=== PATIENT | female | born 1945 | race Caucasian/White ===

== ENCOUNTER → 2017-09-28 09:24 | Outpatient (CLI) | payer MEDICARE, OTHER, SELFPAY ==
[2017-09-28 11:28] LABS: Hemoglobin A1C% w Est Avg Glu 7.4 % (4.0-6.0)
[2017-09-28 11:31] LABS: Blood Urea Nitrogen 27 mg/dL (7-17); Calcium 9.8 mg/dL (8.4-10.2); Carbon Dioxide 25 mmol/L (22-32); Chloride 105 mmol/L (98-107); Cholesterol 150 mg/dL (140-199); Glucose 167 mg/dL (80-110); HDL Cholesterol 50 mg/dL (40-60); HEMOLYSIS 16 (0-50); LDL Cholesterol Calculated 60 mg/dL (<100); Potassium 4.7 mmol/L (3.4-5.1); Sodium 144 mmol/L (137-145); Triglycerides 201 mg/dL (35-150)
[2017-09-28 12:51] LABS: Thyroid Stimulating Hormone 1.76 uIU/mL (0.47-4.68)
== END ==
PROVIDERS: Family Provider Internal Medicine; PCP Internal Medicine; Visit Provider Internal Medicine
DX: E03.9 Hypothyroidism, unspecified (principal); E11.9 Type 2 diabetes mellitus without complications; E78.00 Pure hypercholesterolemia, unspecified; I10 Essential (primary) hypertension
CPT/HCPCS: 36415; 80048; 80061; 83036; 84443

== ENCOUNTER → 2017-10-23 09:05 | Outpatient (CLI) | payer MEDICARE, OTHER, SELFPAY ==
[2017-10-23 09:22] LABS: Add Manual Diff / Slide Review NO; Basophils Percent Auto 0.7 % (0-2); Eosinophils Percent Auto 2.9 % (2-4); Hematocrit 38.1 % (36-46); Hemoglobin 12.9 g/dL (12.0-16.0); Lymphocytes Percent Auto 27.8 % (25-40); Mean Corpuscular HGB Conc 33.8 % (30-36); Mean Corpuscular Hemoglobin 30.1 PG (26-34); Mean Corpuscular Volume 89.2 fL (80-100); Monocytes Percent Auto 6.1 % (3-14); Neutrophils Absolute Auto 3000 /uL (3000-5900); Neutrophils Percent Auto 62.5 % (50-75); Platelet Count 174 X10^3/uL (150-400); Red Blood Cell Count 4.27 X10^6/uL (4.0-5.2); Red Cell Distribution Width 13.2 % (11.6-14.8); White Blood Cell Count 4.8 X10^3/uL (4.5-11.0)
[2017-10-23 09:54] LABS: Alanine Aminotransferase 27 IU/L (9-52); Albumin 4.1 g/dL (3.5-5.0); Albumin Globulin Ratio 1.4 (1.0-2.8); Alkaline Phosphatase 54 U/L (38-126); Aspartate Aminotransferase 26 IU/L (14-36); BUN Creatinine Ratio 20.9 (6-22); Bilirubin Total 0.5 mg/dL (0.2-1.3); Blood Urea Nitrogen 23 mg/dL (7-17); Calcium 9.7 mg/dL (8.4-10.2); Carbon Dioxide 25 mmol/L (22-32); Chloride 106 mmol/L (98-107); Estimated Glomerular Filt Rate 49.2 mL/min (>60); Glucose 215 mg/dL (80-110); HEMOLYSIS < 15 (0-50); Potassium 4.6 mmol/L (3.4-5.1); Sodium 142 mmol/L (137-145); Total Protein 7.1 g/dL (6.3-8.2)
[2017-10-23 10:12] LABS: Carcinoembryonic Antigen 4.2 ng/mL (0.1-3.0)
== END ==
PROVIDERS: Family Provider Internal Medicine; PCP Internal Medicine; Visit Provider Nurse Practitioner Gerontology
DX: C18.9 Malignant neoplasm of colon, unspecified (principal)
CPT/HCPCS: 36415; 80053; 82378; 85025

== ENCOUNTER → 2018-02-19 11:46 | Outpatient (CLI) | payer MEDICARE, OTHER, SELFPAY ==
--- NOTE | 2018-02-19 | DI.MG.S_ITS ---
BILATERAL DIGITAL SCREENING MAMMOGRAM 3D/2D WITH CAD: 02/19/2018 CLINICAL: Routine screening. Comparison is made to exams dated: 11/18/2016 specimen - [facility], 11/13/2016 mammogram, and 11/06/2016 mammogram - [facility]. There are scattered fibroglandular elements in both breasts. Current study was also evaluated with a Computer Aided Detection (CAD) system. There are benign calcifications in both breasts. No significant masses, calcifications, or other findings are seen in either breast. There has been no significant interval change. IMPRESSION: There is no mammographic evidence of malignancy. A 1 year screening mammogram is recommended. This exam was interpreted at Station ID: [id number]. NOTE: For mammograms, a report in lay terms will be sent to the patient. Approximately 15% of breast malignancies will not be visualized mammographically. In the management of a palpable breast mass, a negative mammogram must not discourage biopsy of a clinically suspicious lesion. Electronically Signed By: Mehdi montelongo/dian:02/19/2018 16:21:55 copy to: Jourdan Ortiz letter sent: Normal Exam ACR BI-RADS Category 2: Benign Finding(s) 3342F
== END ==
PROVIDERS: PCP Internal Medicine; Visit Provider Internal Medicine
DX: Z12.31 Encounter for screening mammogram for malignant neoplasm of breast (principal)
CPT/HCPCS: 77063; 77067

== ENCOUNTER → 2018-04-26 14:56 | Outpatient (CLI) | payer MEDICARE, OTHER, SELFPAY ==
[2018-04-26 15:46] LABS: Alanine Aminotransferase 31 IU/L (9-52); Albumin 4.2 g/dL (3.5-5.0); Albumin Globulin Ratio 1.5 (1.0-2.8); Alkaline Phosphatase 54 U/L (38-126); Aspartate Aminotransferase 28 IU/L (14-36); Bilirubin Total 0.2 mg/dL (0.2-1.3); Blood Urea Nitrogen 23 mg/dL (7-17); Calcium 9.9 mg/dL (8.4-10.2); Carbon Dioxide 23 mmol/L (22-32); Chloride 103 mmol/L (98-107); Estimated Glomerular Filt Rate 54.8 mL/min (>60); Globulin 2.8 g/dL (1.7-4.1); Glucose 318 mg/dL (80-110); HEMOLYSIS < 15 (0-50); Potassium 4.5 mmol/L (3.4-5.1); Sodium 139 mmol/L (137-145)
[2018-04-26 15:48] LABS: Add Manual Diff / Slide Review NO; Basophils Percent Auto 0.4 % (0-2); Eosinophils Percent Auto 1.5 % (2-4); Hematocrit 36.9 % (36-46); Hemoglobin 12.1 g/dL (12.0-16.0); Lymphocytes Percent Auto 27.3 % (25-40); Mean Corpuscular HGB Conc 32.9 % (30-36); Mean Corpuscular Hemoglobin 29.9 PG (26-34); Mean Corpuscular Volume 90.8 fL (80-100); Monocytes Percent Auto 5.6 % (3-14); Neutrophils Absolute Auto 4000 /uL (1500-7000); Neutrophils Percent Auto 65.2 % (50-75); Platelet Count 223 X10^3/uL (150-400); Red Blood Cell Count 4.06 X10^6/uL (4.0-5.2); Red Cell Distribution Width 13.4 % (11.6-14.8); White Blood Cell Count 6.2 X10^3/uL (4.5-11.0)
[2018-04-26 16:17] LABS: Carcinoembryonic Antigen 7.4 ng/mL (0.1-3.0)
== END ==
PROVIDERS: Nurse Practitioner Gerontology; Family Provider Internal Medicine; PCP Internal Medicine
DX: C18.9 Malignant neoplasm of colon, unspecified (principal)
CPT/HCPCS: 36415; 80053; 82378; 85025

== ENCOUNTER → 2018-05-03 09:28 | Outpatient (CLI) | payer MEDICARE, OTHER, SELFPAY ==
--- NOTE | 2018-05-03 10:19 | DI.CT.S_ITS ---
PROCEDURE: CT CHEST ABD PEL W CON INDICATIONS: surveillance TECHNIQUE: After the administration of oral and intravenous contrast, 5 mm thick sections acquired from the lung apices to the symphysis. 5 mm coronal and sagittal reformats were performed, with additional 7 mm coronal MIP reformats through the lungs. For radiation dose reduction, the following was used: automated exposure control, adjustment of mA and/or kV according to patient size. COMPARISON: [facility], CT, CHEST ABDOMEN PELVIS WITH CONTRAST, 11/16/2007, 10:03. [facility], CT, CHEST ABDOMEN PELVIS WITH CONTRAST, 12/10/2005, 9:48. [facility], CT, CHEST ABDOMEN PELVIS WITH CONTRAST, 08/06/2009, 13:11. FINDINGS: Image quality: Excellent. CHEST: Lungs and pleura: No acute airspace opacities. No pleural effusions or pneumothorax. Central and peripheral airways appear patent and normal in caliber. Mediastinum: Heart size is normal. No pericardial effusion. No mediastinal or hilar adenopathy by size criteria. Thoracic aorta and central pulmonary arteries are normal in size. Esophagus is normal in caliber. There is a small hiatal hernia. Chest wall: No axillary or supraclavicular adenopathy by size criteria. Thyroid gland is not well-seen. ABDOMEN: Solid organs: Liver is normal in size and enhancement. Diffuse fatty liver infiltration is noted. Gallbladder has been removed. Biliary system is non dilated. Pancreas enhances normally. Spleen is normal in size and enhancement. No adrenal nodules. This patient is status post left nephrectomy. No abnormal soft tissue can be seen within the left nephrectomy bed. The right kidney is unremarkable, with simple appearing cysts seen. No right-sided hydronephrosis. Peritoneum and bowel: This patient is status post partial colectomy. There is a right lower quadrant ostomy seen. No dilated loops of small bowel are seen. No findings of bowel obstruction are seen. No free air or significant free fluid can be seen. Nodes and vessels: No retroperitoneal or mesenteric adenopathy by size criteria. Aorta and inferior vena cava are normal in size. Miscellaneous: No ventral hernias. PELVIS: Genitourinary: Bladder wall thickness is normal. Miscellaneous: No inguinal hernias or adenopathy. Bones: Mild dextroconvex scoliotic curvature is seen. No suspicious bony lesions. No vertebral body compression fractures. Age-appropriate bony degenerative changes are seen. IMPRESSION: Partial colectomy with right lower quadrant ostomy. No nathanael masses or findings of metastatic disease are seen. Left nephrectomy, without findings of local recurrence. Incidental note is made of: Small hiatal hernia Fatty liver Cholecystectomy Right renal cysts Dextroconvex scoliotic curvature Dictated by: Barrera Bay M.D. on 05/03/2018 at 10:44 Approved by: Barrera Bay M.D. on 05/03/2018 at 10:55
== END ==
PROVIDERS: Family Provider Internal Medicine; PCP Internal Medicine
DX: C20 Malignant neoplasm of rectum (principal); N28.1 Cyst of kidney, acquired; K76.0 Fatty (change of) liver, not elsewhere classified; K44.9 Diaphragmatic hernia without obstruction or gangrene; M41.9 Scoliosis, unspecified; Z90.5 Acquired absence of kidney; Z90.49 Acquired absence of other specified parts of digestive tract
CPT/HCPCS: 71260; 74177; 82378; Q9967

== ENCOUNTER 2018-07-30 12:20 | Emergency (ER) | payer MEDICARE, OTHER, SELFPAY ==
[2018-07-30 12:24] VITALS: BP 153/90; PULSE 74; RESP 14; TEMP 36.6; O2SAT 98
--- NOTE | 2018-07-30 12:29 | ED.EXTPRO ---
HPI - Extremity Problem <Christy Santos PA-C - Last Filed: 07/30/18 15:30> General Chief complaint: Extremity Problem,Nontraumatic Stated complaint: states Deon Facitis Time Seen by Provider: 07/30/18 12:26 Source: patient Mode of arrival: ambulatory Limitations: no limitations History of Present Illness HPI Narrative: This 72-year-old female comes in due to worsening left foot and ankle pain. She states that pain started about 3 weeks ago, seems most focused in her Achilles and heel area. She states that she fell off a retaining wall a couple of feet onto cement taking the brunt of the impact with her left knee, than her right. She states she has arthritis in both knees and they were really sore, but are getting better. She had some foot pain prior to that, but has continued to get worse. She states that she saw her PCP who told her this was secondary to plantar fasciitis. She did get a boot for this but has only been able to tolerate wearing it for a couple hours a day. Last night she finally took a leftover oxycodone that she had from dental work a couple of years ago and was able to sleep with the boot on all night, but did not help. She states pain has gotten progressively worse but especially for the last 4 days and she has had some swelling in her foot. Pain has radiated up the calf into the gluteal area at times for the last 2 days. She states she does not have pain nonweightbearing, ice is helping. Pain in is worse after walking for long periods or when 1st getting up. She has not noted swelling in her calf. She denies any chest pain or dyspnea or other new symptoms. She does have a history of clots. Related Data Home Medications Medication Instructions Recorded Confirmed sertraline 50 mg PO QPM #0 10/13/12 07/30/18 simvastatin 40 mg PO BEDTIME #0 10/13/12 07/30/18 aspirin 81 mg PO DAILY 04/28/18 07/30/18 losartan 50 mg PO DAILY 04/28/18 07/30/18 acetaminophen 500 mg tablet 500 mg PO TID 05/20/18 07/30/18 gabapentin 100 mg PO TID 07/30/18 07/30/18 insulin degludec [Tresiba 10 units SUBCUT QPM 07/30/18 07/30/18 FlexTouch U-100] levothyroxine 112 mcg PO DAILY 07/30/18 07/30/18 metformin 1,000 mg PO BID 07/30/18 07/30/18 Allergies Allergy/AdvReac Type Severity Reaction Status Date / Time diphenhydramine AdvReac Intermediate Agitated Verified 07/30/18 13:08 Review of Systems <Christy Santos PA-C - Last Filed: 07/30/18 15:30> Review of Systems ROS Unobtainable: All systems reviewed & are unremarkable except as noted in HPI and below PFSH <Christy Santos PA-C - Last Filed: 07/30/18 15:30> Medical History (Updated 07/30/18 @ 14:54 by Christy Santos PA-C) HTN (hypertension) (Chronic) Hypothyroidism (Chronic) Insulin dependent diabetes mellitus (Chronic) Single kidney (Chronic) Colon cancer (Resolved) History of blood clots (Resolved) Surgical History (Updated 07/30/18 @ 13:02 by Christy Santos PA-C) S/P colon resection (Resolved) Social History Smoking Status: Current every day smoker Social History Smoking Status: Current every day smoker Exam <Christy Santos PA-C - Last Filed: 07/30/18 15:30> Narrative Exam Narrative: GENERAL APPEARANCE: Patient sitting comfortably, in no distress. NECK/THYROID: Neck supple, no JVD. LUNGS: Clear to auscultation bilaterally. HEART: Regular rate and rhythm without murmur, normal S1, S2, no S3 or S4. EXTREMITIES: No cyanosis, mild left pedal edema, minimal calf and Achilles tenderness on the left, none on the right NEUROLOGIC: Alert and oriented, normal speech, and coordination. MUSCULOSKELETAL: Left foot mild midfoot effusion. Tender over the left 3rd mid metatarsal the, no point tenderness elsewhere including the Achilles, heel, or aponeurosis of the heel. Achilles is intact by palpation. no point tenderness over the ankle. She has full active/passive range of motion nonweightbearing without tenderness, no obvious laxity. No tenderness over the left knee joint, full range of motion. Initial Vital Signs Initial Vital Signs: Vital Signs Temperature 97.9 F 07/30/18 12:24 Pulse Rate 74 07/30/18 12:24 Respiratory Rate 14 07/30/18 12:24 Blood Pressure 153/90 H 07/30/18 12:24 Pulse Oximetry 98 07/30/18 12:24 <Norbert Barber DO - Last Filed: 07/30/18 16:20> Initial Vital Signs Initial Vital Signs: Vital Signs Temperature 97.9 F 07/30/18 12:24 Pulse Rate 74 07/30/18 12:24 Respiratory Rate 14 07/30/18 12:24 Blood Pressure 153/90 H 07/30/18 12:24 Pulse Oximetry 98 07/30/18 12:24 Course <Christy Santos PA-C - Last Filed: 07/30/18 15:30> Additional Information: I spoke with Dr. Cheema who reviewed xrays and not clear that the spur shows an acute fracture given that most of patient's swelling has been in the midfoot and she seems to have more tenderness over the metatarsals on exam today. Patient was comfortable ambulating in an orthopedic shoe, which he advised was sufficient for this. She will keep her podiatry appointment this month. Orders Ordered: ED Orders 07/30/18 12:50 US periph venous low extrem lt Stat XR ankle LT min 3V Stat XR foot LT min 3V Stat Discontinued Medications Oxycodone/Acetaminophen (Percocet 5/325) 1 tab PO NOW ONE Stop: 07/30/18 12:52 Last Admin: 07/30/18 13:08 Dose: 1 tab Vital Signs - 8 hr 07/30/18 12:24 07/30/18 15:08 Temperature 97.9 F Pulse Rate 74 56 L Respiratory Rate 14 18 Blood Pressure 153/90 H 149/56 H Pulse Oximetry 98 97 <DO Lauren Rain Last Filed: 07/30/18 16:20> Orders Ordered: ED Orders 07/30/18 12:50 periph venous low extrem lt Stat XR ankle LT min 3V Stat XR foot LT min 3V Stat Discontinued Medications Oxycodone/Acetaminophen (Percocet 5/325) 1 tab PO NOW ONE Stop: 07/30/18 12:52 Last Admin: 07/30/18 13:08 Dose: 1 tab Vital Signs - 8 hr 07/30/18 12:24 07/30/18 15:08 Temperature 97.9 F Pulse Rate 74 56 L Respiratory Rate 14 18 Blood Pressure 153/90 H 149/56 H Pulse Oximetry 98 97 MDM - Extremity (Nontraumatic) <Christy Santos PA-C - Last Filed: 07/30/18 15:30> Imaging Data foot and ankle: Radiologist's impression: Chart Viewer Diagnostics DATE TYPE STATUS AUTHOR Ana 07/30/18 12:50 Maria Eugenia Sanchez 07/30/18 12:50 Maria Eugenia Sanchez 05/03/18 10:19 Barrera Bay 02/19/18 00:00 ReemaMadyson Hicks 72, F1945 REG ER, ED.LOC - Main ED: R10 80.739kg Extremity Problem,Nontraumatic Search Chart Agitated ONSET Today 12:24 Madyson Ladd 72 F 1945 [place] [address] XRay Report Signed Patient: Madyson Ladd CMR#: [id number] : 8Acct:[id number] Age/Sex: 72 / FDate of Service: 07/30/18 Loc: ED Accession Number: [id number] Procedure: XR ankle LT min 3V Ordering Provider: Christy Santos P.A-C PROCEDURE: XR ANKLE LT MIN 3V INDICATIONS: pain, swelling (heel, posterior) after fall TECHNIQUE: 3 views of the ankle were acquired. COMPARISON: None. FINDINGS: Bones: There is trace fragmentation and irregularity along the plantar calcaneal surface in the expected location of a small spur. No other visible cortical defects. No bony displacement. Ankle mortise is normally aligned. No suspicious bony lesions. Soft tissues: No tibiotalar joint effusion. Achilles tendon appears normal. IMPRESSION: Questionable impaction fracture involving a plantar calcaneal spur. Otherwise intact left ankle. Dictated by: Maria Eugenia Sanchez M.D. on 07/30/2018 at 13:11 Approved by: Maria Eugenia Sanchez M.D. on 07/30/2018 at 13:16 Chart Viewer Diagnostics DATE TYPE STATUS AUTHOR Ana 07/30/18 12:50 Maria Eugenia Sanchez 07/30/18 12:50 Maria Eugenia Sanchez 05/03/18 10:19 Barrera Bay 02/19/18 00:00 Mehdi Benavidez Betty C 72, F1945 REG ER, ED.LOC - Main ED: R10 80.739kg Extremity Problem,Nontraumatic Search Chart Agitated ONSET Today 12:24 Madyson Ladd 72 F [address] [address] XRay Report Signed Patient: Madyson Ladd CMR#: [id number] : 1945cct:[id number] Age/Sex: 72 / FDate of Service: 07/30/18 Loc: ED Accession Number: [id number] Procedure: XR foot LT min 3V Ordering Provider: Christy Santos P.A-C PROCEDURE: XR FOOT LT MIN 3V INDICATIONS: worsening pain (lateral), swelling TECHNIQUE: 3 views of the foot were acquired. COMPARISON: None. FINDINGS: Bones: Bony irregularity and increased fragmentation involving plantar calcaneal spur where there may be a small compression deformity. A discrete cortical fracture plane is not visible. Elsewhere, the there is mild enthesopathic change at the fifth metatarsal base and moderate productive degenerative change at the first tarsometatarsal articulation. Mild hallux valgus at the first MTP joint. No suspicious bony lesions. Soft tissues: No tibiotalar joint effusion. Achilles tendon appears normal. IMPRESSION: 1. Questionable impaction fracture involving plantar calcaneal spur. No other acute fractures. 2. Mild degenerative changes in the foot as described. Dictated by: Maria Eugenia Sanchez M.D. on 07/30/2018 at 13:16 Approved by: Maria Eugenia Sanchez M.D. on 07/30/2018 at 13:18 Venous US: Radiologist's impression: 16 Christy Santos PA-C Find Patient Imaging Madyson Ladd 72 F 1945 ACTIVITY DATE EXAM STATUS AUTHOR 07/30/18 12:50 Signed Maria Eugenia Sanchez 07/30/18 12:50 Signed Maria Eugenia Sanchez 07/30/18 12:50 Signed Ray,[address] [address] Ultrasound Report Signed Patient: Madyson Ladd CMR#: [id number] : 8Acct:[id number] Age/Sex: 72 / FDate of Service: 07/30/18 Loc: ED Accession Number: [id number] Procedure: US periph venous low extrem lt Ordering Provider: Christy Santos P.A-C PROCEDURE: US PERIPH VENOUS LOW EXTREM LT INDICATIONS: FOOT SWELLING, LEFT LEG PAIN, HISTORY OF CANCER AND CLOTS TECHNIQUE: Real-time imaging, as well as color and pulse Doppler interrogation, were performed of the lower extremity deep veins from the inguinal ligament to the popliteal fossa. COMPARISON: None. FINDINGS: The common femoral, femoral and popliteal veins are normally compressible, and free of intraluminal thrombus. Color and pulse Doppler demonstrate normal phasic intraluminal flow. There is normal augmentation response to distal compression maneuver. The 4.5 x 0.7 x 1.8 cm calculus is noted. IMPRESSION: No evidence of deep vein thrombosis involving the left lower extremity. 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 Otherwise, please wear the orthopedic shoe that we gave you when you are putting weight on your left foot. Continue ice as needed. Try Tylenol arthritis (also known as Tylenol 8 hour or extended release acetaminophen) 650 mg per pill. You can take that every 8 hours to help with pain, and you can add a 4th pill if needed during the day (this is a lower total dose than your extra-strength Tylenol and is longer-acting). Please see the paper cap machine operator as you have planned and take the x-ray disc that we gave you. The orthopedist to abduct your x-rays today did not think that the bone spur on your heel was clearly a new fracture from your fall, though somewhat difficult to determine. You did not have any blood clots on your ultrasound today, however they did notice a cyst behind the knee, called a Pichardo cyst which can sometimes exacerbate pain. Prescriptions: No Action simvastatin 40 MG tablet 40 mg PO BEDTIME Qty: 0 RF: 0 sertraline 50 MG tablet 50 mg PO QPM Qty: 0 RF: 0 acetaminophen [Tylenol Extra Strength] 500 mg tablet 500 mg PO TID RF: 0 aspirin 81 mg Tablet,Delayed Release (Dr/Ec) 81 mg PO DAILY RF: 0 losartan 50 mg Tablet 50 mg PO DAILY RF: 0 metformin 500 mg tablet 1,000 mg PO BID RF: 0 gabapentin 100 mg capsule 100 mg PO TID RF: 0 levothyroxine 112 mcg tablet 112 mcg PO DAILY RF: 0 Tresiba FlexTouch U-100 100 unit/mL (3 mL) insulin pen 10 units subcut QPM RF: 0 Referrals: Karlos Avila MD [Primary Care Provider] - Luis Antonio Gibbs DPM [Physician] - <Norbert Barber DO - Last Filed: 07/30/18 16:20> Cosign ED Attending Marisolature Attestation: I was immediately available in the department for consultation. Documentation has been reviewed. I agree with assessment and plan.
--- NOTE | 2018-07-30 12:50 | DI.US.S_ITS ---
PROCEDURE: US PERIPH VENOUS LOW EXTREM LT INDICATIONS: FOOT SWELLING, LEFT LEG PAIN, HISTORY OF CANCER AND CLOTS TECHNIQUE: Real-time imaging, as well as color and pulse Doppler interrogation, were performed of the lower extremity deep veins from the inguinal ligament to the popliteal fossa. COMPARISON: None. FINDINGS: The common femoral, femoral and popliteal veins are normally compressible, and free of intraluminal thrombus. Color and pulse Doppler demonstrate normal phasic intraluminal flow. There is normal augmentation response to distal compression maneuver. The 4.5 x 0.7 x 1.8 cm calculus is noted. IMPRESSION: No evidence of deep vein thrombosis involving the left lower extremity. Dictated by: Ania Bell MD, PhD on 07/30/2018 at 13:30 Approved by: Ania Bell MD, PhD on 07/30/2018 at 13:31
--- NOTE | 2018-07-30 12:50 | DI.RAD.S_ITS ---
PROCEDURE: XR FOOT LT MIN 3V INDICATIONS: worsening pain (lateral), swelling TECHNIQUE: 3 views of the foot were acquired. COMPARISON: None. FINDINGS: Bones: Bony irregularity and increased fragmentation involving plantar calcaneal spur where there may be a small compression deformity. A discrete cortical fracture plane is not visible. Elsewhere, the there is mild enthesopathic change at the fifth metatarsal base and moderate productive degenerative change at the first tarsometatarsal articulation. Mild hallux valgus at the first MTP joint. No suspicious bony lesions. Soft tissues: No tibiotalar joint effusion. Achilles tendon appears normal. IMPRESSION: 1. Questionable impaction fracture involving plantar calcaneal spur. No other acute fractures. 2. Mild degenerative changes in the foot as described. Dictated by: Maria Eugenia Sanchez M.D. on 07/30/2018 at 13:16 Approved by: Maria Eugenia Sanchez M.D. on 07/30/2018 at 13:18
--- NOTE | 2018-07-30 12:50 | DI.RAD.S_ITS ---
PROCEDURE: XR ANKLE LT MIN 3V INDICATIONS: pain, swelling (heel, posterior) after fall TECHNIQUE: 3 views of the ankle were acquired. COMPARISON: None. FINDINGS: Bones: There is trace fragmentation and irregularity along the plantar calcaneal surface in the expected location of a small spur. No other visible cortical defects. No bony displacement. Ankle mortise is normally aligned. No suspicious bony lesions. Soft tissues: No tibiotalar joint effusion. Achilles tendon appears normal. IMPRESSION: Questionable impaction fracture involving a plantar calcaneal spur. Otherwise intact left ankle. Dictated by: Maria Eugenia Sanchez M.D. on 07/30/2018 at 13:11 Approved by: Maria Eugenia Sanchez M.D. on 07/30/2018 at 13:16
--- NOTE | 2018-07-30 12:56 | ED_ITS ---
HPI - Extremity Problem <Christy Santos PA-C - Last Filed: 07/30/18 15:30> General Chief complaint: Extremity Problem,Nontraumatic Stated complaint: states Deon Facitis Time Seen by Provider: 07/30/18 12:26 Source: patient Mode of arrival: ambulatory Limitations: no limitations History of Present Illness HPI Narrative: This 72-year-old female comes in due to worsening left foot and ankle pain. She states that pain started about 3 weeks ago, seems most focused in her Achilles and heel area. She states that she fell off a retaining wall a couple of feet onto cement taking the brunt of the impact with her left knee, than her right. She states she has arthritis in both knees and they were really sore, but are getting better. She had some foot pain prior to that, but has continued to get worse. She states that she saw her PCP who told her this was secondary to plantar fasciitis. She did get a boot for this but has only been able to tolerate wearing it for a couple hours a day. Last night she finally took a leftover oxycodone that she had from dental work a couple of years ago and was able to sleep with the boot on all night, but did not help. She states pain has gotten progressively worse but especially for the last 4 days and she has had some swelling in her foot. Pain has radiated up the calf into the gluteal area at times for the last 2 days. She states she does not have pain nonweightbearing, ice is helping. Pain in is worse after walking for long periods or when 1st getting up. She has not noted swelling in her calf. She denies any chest pain or dyspnea or other new symptoms. She does have a history of clots. Related Data Home Medications Medication Instructions Recorded Confirmed sertraline 50 mg PO QPM #0 10/13/12 07/30/18 simvastatin 40 mg PO BEDTIME #0 10/13/12 07/30/18 aspirin 81 mg PO DAILY 04/28/18 07/30/18 losartan 50 mg PO DAILY 04/28/18 07/30/18 acetaminophen 500 mg tablet 500 mg PO TID 05/20/18 07/30/18 gabapentin 100 mg PO TID 07/30/18 07/30/18 insulin degludec [Tresiba 10 units SUBCUT QPM 07/30/18 07/30/18 FlexTouch U-100] levothyroxine 112 mcg PO DAILY 07/30/18 07/30/18 metformin 1,000 mg PO BID 07/30/18 07/30/18 Allergies Allergy/AdvReac Type Severity Reaction Status Date / Time diphenhydramine AdvReac Intermediate Agitated Verified 07/30/18 13:08 Review of Systems <Christy Santos PA-C - Last Filed: 07/30/18 15:30> Review of Systems ROS Unobtainable: All systems reviewed & are unremarkable except as noted in HPI and below PFSH <Christy Santos PA-C - Last Filed: 07/30/18 15:30> Medical History (Updated 07/30/18 @ 14:54 by Christy Santos PA-C) HTN (hypertension) (Chronic) Hypothyroidism (Chronic) Insulin dependent diabetes mellitus (Chronic) Single kidney (Chronic) Colon cancer (Resolved) History of blood clots (Resolved) Surgical History (Updated 07/30/18 @ 13:02 by Christy Santos PA-C) S/P colon resection (Resolved) Social History Smoking Status: Current every day smoker Social History Smoking Status: Current every day smoker Exam <Christy Santos PA-C - Last Filed: 07/30/18 15:30> Narrative Exam Narrative: GENERAL APPEARANCE: Patient sitting comfortably, in no distress. NECK/THYROID: Neck supple, no JVD. LUNGS: Clear to auscultation bilaterally. HEART: Regular rate and rhythm without murmur, normal S1, S2, no S3 or S4. EXTREMITIES: No cyanosis, mild left pedal edema, minimal calf and Achilles tenderness on the left, none on the right NEUROLOGIC: Alert and oriented, normal speech, and coordination. MUSCULOSKELETAL: Left foot mild midfoot effusion. Tender over the left 3rd mid metatarsal the, no point tenderness elsewhere including the Achilles, heel, or aponeurosis of the heel. Achilles is intact by palpation. no point tenderness over the ankle. She has full active/passive range of motion nonweightbearing without tenderness, no obvious laxity. No tenderness over the left knee joint, full range of motion. Initial Vital Signs Initial Vital Signs: Vital Signs Temperature 97.9 F 07/30/18 12:24 Pulse Rate 74 07/30/18 12:24 Respiratory Rate 14 07/30/18 12:24 Blood Pressure 153/90 H 07/30/18 12:24 Pulse Oximetry 98 07/30/18 12:24 <Norbert Barber DO - Last Filed: 07/30/18 16:20> Initial Vital Signs Initial Vital Signs: Vital Signs Temperature 97.9 F 07/30/18 12:24 Pulse Rate 74 07/30/18 12:24 Respiratory Rate 14 07/30/18 12:24 Blood Pressure 153/90 H 07/30/18 12:24 Pulse Oximetry 98 07/30/18 12:24 Course <Christy Santos PA-C - Last Filed: 07/30/18 15:30> Additional Information: I spoke with Dr. Cheema who reviewed xrays and not clear that the spur shows an acute fracture given that most of patient's swelling has been in the midfoot and she seems to have more tenderness over the metatarsals on exam today. Patient was comfortable ambulating in an orthopedic shoe, which he advised was sufficient for this. She will keep her podiatry appointment this month. Orders Ordered: ED Orders 07/30/18 12:50 US periph venous low extrem lt Stat XR ankle LT min 3V Stat XR foot LT min 3V Stat Discontinued Medications Oxycodone/Acetaminophen (Percocet 5/325) 1 tab PO NOW ONE Stop: 07/30/18 12:52 Last Admin: 07/30/18 13:08 Dose: 1 tab Vital Signs - 8 hr 07/30/18 12:24 07/30/18 15:08 Temperature 97.9 F Pulse Rate 74 56 L Respiratory Rate 14 18 Blood Pressure 153/90 H 149/56 H Pulse Oximetry 98 97 <DO Lauren Rain Last Filed: 07/30/18 16:20> Orders Ordered: ED Orders 07/30/18 12:50 periph venous low extrem lt Stat XR ankle LT min 3V Stat XR foot LT min 3V Stat Discontinued Medications Oxycodone/Acetaminophen (Percocet 5/325) 1 tab PO NOW ONE Stop: 07/30/18 12:52 Last Admin: 07/30/18 13:08 Dose: 1 tab Vital Signs - 8 hr 07/30/18 12:24 07/30/18 15:08 Temperature 97.9 F Pulse Rate 74 56 L Respiratory Rate 14 18 Blood Pressure 153/90 H 149/56 H Pulse Oximetry 98 97 MDM - Extremity (Nontraumatic) <Christy Santos PA-C - Last Filed: 07/30/18 15:30> Imaging Data foot and ankle: Radiologist's impression: Chart Viewer Diagnostics DATE TYPE STATUS AUTHOR Ana 07/30/18 12:50 Maria Eugenia Sanchez 07/30/18 12:50 Maria Eugenia Sanchez 05/03/18 10:19 [place] 02/19/18 00:00 ReemaMadyson Hicks 72, F1945 REG ER, ED.LOC - Main ED: R10 80.739kg Extremity Problem,Nontraumatic Search Chart Agitated ONSET Today 12:24 Madyson Ladd 72 F 1945 [place] [address] XRay Report Signed Patient: Madyson Ladd CMR#: [id number] : 8Acct:[id number] Age/Sex: 72 / FDate of Service: 07/30/18 Loc: ED Accession Number: [id number] Procedure: XR ankle LT min 3V Ordering Provider: Christy Santos P.A-C PROCEDURE: XR ANKLE LT MIN 3V INDICATIONS: pain, swelling (heel, posterior) after fall TECHNIQUE: 3 views of the ankle were acquired. COMPARISON: None. FINDINGS: Bones: There is trace fragmentation and irregularity along the plantar calcaneal surface in the expected location of a small spur. No other visible cortical defects. No bony displacement. Ankle mortise is normally aligned. No suspicious bony lesions. Soft tissues: No tibiotalar joint effusion. Achilles tendon appears normal. IMPRESSION: Questionable impaction fracture involving a plantar calcaneal spur. Otherwise intact left ankle. Dictated by: Maria Eugenia Sanchez M.D. on 07/30/2018 at 13:11 Approved by: Maria Eugenia Sanchez M.D. on 07/30/2018 at 13:16 Chart Viewer Diagnostics DATE TYPE STATUS AUTHOR Ana 07/30/18 12:50 Maria Eugenia Sanchez 07/30/18 12:50 Maria Eugenia Sanchez 05/03/18 10:19 [place] 02/19/18 00:00 Mehdi Benavidez Betty C 72, F1945 REG ER, ED.LOC - Main ED: R10 80.739kg Extremity Problem,Nontraumatic Search Chart Agitated ONSET Today 12:24 Madyson Ladd 72 F [address] [address] XRay Report Signed Patient: Madyson Ladd CMR#: [id number] : 1945cct:[id number] Age/Sex: 72 / FDate of Service: 07/30/18 Loc: ED Accession Number: [id number] Procedure: XR foot LT min 3V Ordering Provider: Christy Santos P.A-C PROCEDURE: XR FOOT LT MIN 3V INDICATIONS: worsening pain (lateral), swelling TECHNIQUE: 3 views of the foot were acquired. COMPARISON: None. FINDINGS: Bones: Bony irregularity and increased fragmentation involving plantar calcaneal spur where there may be a small compression deformity. A discrete cortical fracture plane is not visible. Elsewhere, the there is mild enthesopathic change at the fifth metatarsal base and moderate productive degenerative change at the first tarsometatarsal articulation. Mild hallux valgus at the first MTP joint. No suspicious bony lesions. Soft tissues: No tibiotalar joint effusion. Achilles tendon appears normal. IMPRESSION: 1. Questionable impaction fracture involving plantar calcaneal spur. No other acute fractures. 2. Mild degenerative changes in the foot as described. Dictated by: Maria Eugenia Sanchez M.D. on 07/30/2018 at 13:16 Approved by: Maria Eugenia Sanchez M.D. on 07/30/2018 at 13:18 Venous US: Radiologist's impression: 16 Christy Santos PA-C Find Patient Imaging Madyson Ladd 72 F 1945 ACTIVITY DATE EXAM STATUS AUTHOR 07/30/18 12:50 Signed Maria Eugenia Sanchez 07/30/18 12:50 Signed Maria Eugenia Sanchez 07/30/18 12:50 Signed Ray,[address] [address] Ultrasound Report Signed Patient: Madyson Ladd CMR#: [id number] : 8Acct:[id number] Age/Sex: 72 / FDate of Service: 07/30/18 Loc: ED Accession Number: [id number] Procedure: US periph venous low extrem lt Ordering Provider: Christy Santos P.A-C PROCEDURE: US PERIPH VENOUS LOW EXTREM LT INDICATIONS: FOOT SWELLING, LEFT LEG PAIN, HISTORY OF CANCER AND CLOTS TECHNIQUE: Real-time imaging, as well as color and pulse Doppler interrogation, were performed of the lower extremity deep veins from the inguinal ligament to the popliteal fossa. COMPARISON: None. FINDINGS: The common femoral, femoral and popliteal veins are normally compressible, and free of intraluminal thrombus. Color and pulse Doppler demonstrate normal phasic intraluminal flow. There is normal augmentation response to distal compression maneuver. The 4.5 x 0.7 x 1.8 cm calculus is noted. IMPRESSION: No evidence of deep vein thrombosis involving the left lower extremity. 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 Otherwise, please wear the orthopedic shoe that we gave you when you are putting weight on your left foot. Continue ice as needed. Try Tylenol arthritis (also known as Tylenol 8 hour or extended release acetaminophen) 650 mg per pill. You can take that every 8 hours to help with pain, and you can add a 4th pill if needed during the day (this is a lower total dose than your extra-strength Tylenol and is longer-acting). Please see the bottle feeder as you have planned and take the x-ray disc that we gave you. The orthopedist to abduct your x-rays today did not think that the bone spur on your heel was clearly a new fracture from your fall, though somewhat difficult to determine. You did not have any blood clots on your ultrasound today, however they did notice a cyst behind the knee, called a Pichardo cyst which can sometimes exacerbate pain. Prescriptions: No Action simvastatin 40 MG tablet 40 mg PO BEDTIME Qty: 0 RF: 0 sertraline 50 MG tablet 50 mg PO QPM Qty: 0 RF: 0 acetaminophen [Tylenol Extra Strength] 500 mg tablet 500 mg PO TID RF: 0 aspirin 81 mg Tablet,Delayed Release (Dr/Ec) 81 mg PO DAILY RF: 0 losartan 50 mg Tablet 50 mg PO DAILY RF: 0 metformin 500 mg tablet 1,000 mg PO BID RF: 0 gabapentin 100 mg capsule 100 mg PO TID RF: 0 levothyroxine 112 mcg tablet 112 mcg PO DAILY RF: 0 Tresiba FlexTouch U-100 100 unit/mL (3 mL) insulin pen 10 units subcut QPM RF: 0 Referrals: Karlos Avila MD [Primary Care Provider] - Luis Antonio Gibbs DPM [Physician] - <Norbert Barber DO - Last Filed: 07/30/18 16:20> Cosign ED Attending Marisolature Attestation: I was immediately available in the department for consultation. Documentation has been reviewed. I agree with assessment and plan.
[2018-07-30] MEDS: OXYCODONE/ACETAMINOPHEN 5/325 TABLET 1 TAB PO (13:08)
[2018-07-30 15:08] VITALS: BP 149/56; PULSE 56; RESP 18; O2SAT 97
== END 2018-07-30 15:08 | disposition home or self-care (01) ==
PROVIDERS: Emergency Provider Internal Medicine; Family Provider Internal Medicine; PCP Internal Medicine
DX: M77.32 Calcaneal spur, left foot (principal); M19.072 Primary osteoarthritis, left ankle and foot; M79.89 Other specified soft tissue disorders; Z86.718 Personal history of other venous thrombosis and embolism
CPT/HCPCS: 73610; 73630; 93971; 99282; 99283

== ENCOUNTER → 2018-08-21 09:06 | Outpatient (CLI) | payer MEDICARE, OTHER, SELFPAY ==
--- NOTE | 2018-08-21 09:10 | DI.MRI.S_ITS ---
PROCEDURE: MR ANKLE LT WO CON INDICATIONS: LT FOOT/ANKLE INJURY TECHNIQUE: Noncontrast sagittal T1 spin echo and T2 fast spin echo with fat saturation, axial proton density fast spin echo and T2 fast spin echo with fat saturation, coronal T1 spin echo and T2 fast spin echo with fat saturation through the ankle/hindfoot. COMPARISON: [facility], CR, XR FOOT LT MIN 3V, 07/30/2018, 12:55. FINDINGS: Image quality: Excellent. Bones and joints: There is significant marrow edema involving weight-bearing portion of inferior calcaneus. Subtle internal linear hypointense signal is seen, concerning for a subtle nondisplaced stress fracture. No cortical disruption is seen. Small plantar calcaneal enthesophyte is seen. Osteoarthritic changes are noted throughout mid foot and hindfoot joints most prominent involving first and second TMT joints. No hindfoot coalitions. No osteochondral injuries of the talar dome. No pathologic joint effusions. Medial structures: The posterior tibialis, flexor digitorum longus, and flexor hallucis longus tendons are intact. The posterior tibial neurovascular bundle appears normal within the tarsal tunnel, without extrinsic mass effect. The deep layer (anterior and posterior tibiotalar ligaments) and superficial layer (tibionavicular, tibiospring, and tibiocalcaneal ligaments) of the deltoid ligament appear normal. The spring ligament components (superomedial calcaneonavicular, medioplantar oblique calcaneonavicular, and inferoplantar longitudinal ligaments) are intact. Lateral structures: The anterior talofibular, calcaneofibular, and posterior talofibular ligaments appear intact. More superiorly, the anterior and posterior tibiofibular ligaments appear intact, as is the intermalleolar ligament. The tibiofibular syndesmosis is normal in width at 2 mm or less. The peroneus longus and brevis tendons demonstrate normal location and morphology. Adjacent bony peroneal tubercle and retrotrochlear prominence are normal in size. The sinus tarsi demonstrates normal fatty signal, without edema, fibrosis, or cyst formation. Visualized sinus tarsi components (cervical ligament, interosseous talocalcaneal ligament, roots of the inferior extensor retinaculum) appear normal. The calcaneonavicular and calcaneocuboid components of the bifurcate ligament appear intact. The dorsal calcaneocuboid ligament appears intact. Anterior structures: The tibialis anterior, extensor hallucis longus, and extensor digitorum longus tendons appear intact. The dorsal talonavicular ligament appears intact. Posterior and plantar structures: Achilles tendon is intact. Thickened plantar aponeurosis near its plantar calcaneal insertion is seen. No gross rupture of the plantar fascia. No abductor digiti quinti muscle atrophy to suggest Lopez neuropathy. IMPRESSION: 1. Edema involving weight-bearing portion of the inferior calcaneus with subtle internal hypointense signal concerning for incomplete stress fracture versus bony contusion/stress reaction. No cortical disruption. 2. Osteoarthritic changes throughout mid foot and hindfoot joints. No other fracture or dislocation. 3. Thickened plantar aponeurosis at its inferior calcaneal insertion suggestive of a correlation for possible plantar fasciitis. 4. Ankle tendons and ligaments are grossly intact. Dictated by: Frederic Milligan M.D. on 08/23/2018 at 10:55 Approved by: Frederic Milligan M.D. on 08/23/2018 at 11:17
== END ==
PROVIDERS: Family Provider Internal Medicine; PCP Internal Medicine; Visit Provider Podiatrist
DX: S99.922A Unspecified injury of left foot, initial encounter (principal); S93.492A Sprain of other ligament of left ankle, initial encounter; M25.475 Effusion, left foot; M19.072 Primary osteoarthritis, left ankle and foot; M76.72 Peroneal tendinitis, left leg; R26.2 Difficulty in walking, not elsewhere classified; W17.89XA Other fall from one level to another, initial encounter
CPT/HCPCS: 73721

== ENCOUNTER → 2018-08-27 06:44 | Outpatient (CLI) | payer MEDICARE, OTHER, SELFPAY ==
--- NOTE | 2018-08-27 | DI.MRI.S_ITS ---
PROCEDURE: MRFOOT LT WO CON INDICATIONS: LT FOOT/ANKLE INJURY TECHNIQUE: Noncontrast sagittal T1 spin echo and T2 fast spin echo with fat saturation, long-axis T1 spin echo and T2 fast spin echo with fat saturation, short-axis T1 spin echo and T2 fast spin echo with fat saturation through the forefoot. COMPARISON: [facility], CR, XR ANKLE LT MIN 3V, 07/30/2018, 12:55. [facility], CR, XR FOOT LT MIN 3V, 07/30/2018, 12:55. [facility], MR, MR ANKLE LT WO CON, 08/21/2018, 9:20. FINDINGS: Image quality: Excellent. Bones and joints: No bone marrow contusions or metatarsal stress fractures. The sesamoid bones appear in expected positions, without internal edema. There is moderate first MTP joint degeneration. Diffuse mid foot degeneration with subchondral sclerosis, edema and spurring. Soft tissues: There is diffuse atrophy of the intrinsic muscles of the foot. Visualized flexor and extensor tendons appear intact, without tenosynovitis. The distal insertions of the peroneus brevis and longus tendons appear intact. The principal Lisfranc ligament appears intact. No soft tissue ganglion cysts or bursal fluid collections. Sagittal images demonstrate no evidence for plantar plate tears. Dorsal subcutaneous soft tissue swelling. IMPRESSION: No evidence of fracture. Dorsal subcutaneous soft tissue swelling/edema. Diffuse left forefoot and midfoot joint degeneration as above. Atrophy of the intrinsic muscles of the foot. Dictated by: Manjinder Cardona M.D. on 08/27/2018 at 9:59 Approved by: Manjinder Cardona M.D. on 08/27/2018 at 10:07
== END ==
PROVIDERS: PCP Internal Medicine; Visit Provider Podiatrist
DX: S99.912A Unspecified injury of left ankle, initial encounter (principal); M19.072 Primary osteoarthritis, left ankle and foot
CPT/HCPCS: 73718

== ENCOUNTER → 2018-12-30 11:40 | Outpatient (CLI) | payer MEDICARE, OTHER, SELFPAY ==
--- NOTE | 2018-12-30 | DI.RAD.S_ITS ---
PROCEDURE: XR FOOT LT MIN 3V INDICATIONS: LEFT FOOT PAIN TECHNIQUE: 3 views of the foot were acquired. COMPARISON: [facility], , XR FOOT LT MIN 3V, 07/30/2018, 12:55. FINDINGS: Bones: No fractures or dislocations. No suspicious bony lesions. Plantar calcaneal spur. Diffuse hindfoot degenerative spurring. Mild first MTP degeneration. Hallux valgus appearance although weightbearing views would be more specific Dorsal soft tissue swelling over the forefoot. IMPRESSION: Diffuse degenerative changes as above. Plantar calcaneal spur. Dorsal forefoot soft tissue swelling Dictated by: Manjinder Cardona M.D. on 12/30/2018 at 12:08 Approved by: Manjinder Cardona M.D. on 12/30/2018 at 12:10
== END ==
PROVIDERS: PCP Internal Medicine; Visit Provider Internal Medicine
DX: M79.672 Pain in left foot (principal); M77.32 Calcaneal spur, left foot; M79.89 Other specified soft tissue disorders
CPT/HCPCS: 73630

== ENCOUNTER 2019-01-05 08:24 | Day surgery (SDC) | payer MEDICARE, OTHER, SELFPAY ==
--- NOTE | 2019-01-05 08:08 | PM.PREOP ---
Pre-operative Note Interval Note History & Physical reviewed/Exam performed by Physician: Yes Changes to H&P: No H&P completed within 30 days and has changed as indicated here:: Glucose was checked and stable prior to surgery. It was 98 and stable to proceed. There was PAC's on her heart monitor which were evaluated and she was stable for surgery. This will be followed up by her primary provider.
--- NOTE | 2019-01-05 08:09 | PM.OP.1 ---
Operative Date/Time/Diagnoses Date of procedure: 01/05/19 Time of procedure: 09:45 Procedure & Clinicians Procedure: Preoperative diagnoses: 1. Right significant nuclear sclerotic and cortical cataract. 2. Diabetes without retinopathy 3. Hypertension 4. Depression 5. Hypercholesterolemia 6. Poorly dilating pupil for unknown reason except diabetes. Postoperative diagnoses: 1. Cataract removed by phacoemulsification with placement of posterior chamber intraocular lens. Procedure: Phacoemulsification with posterior chamber intraocular lens implant Surgeon: Shweta Sheldon MD Complications: None Specimen: None Implant: +21.0 Blood loss: None Anesthesia: Retrobulbar with monitored standby Description of procedure: Patient presents with a complaint of decreased vision due to cataract which is affecting activities of daily living with decreased dried driving and reading. The patient wants surgery to improve vision. She has stable blood glucose for surgery. The patient was taken to the operating room and given IV sedation. A retrobulbar block consisting of 6 cc of 2% xylocaine without epinephrine mixed half and half with 0.5% Marcaine with 1 cc of hyaluronidase added is placed between the medial and lateral 1/3 of the inferior orbital rim. The eye is manually massaged for 30 sec, prepped using Betadine solution, and draped in the usual sterile fashion. She had some discomfort and topical lidocaine jelly was placed with good relief. Temporal approach was made, a 1 mm side-port incision was made 90? from the proposed clear corneal incision position. Phenylephrine 1.5% mixed with 1% xylocaine 0.2 cc was placed into the anterior chamber. Viscoat followed by Healon was then placed. A 2.6 mm clear incision with a 2.6 mm blade was placed. A 360 degree capsulorrhexis style capsulotomy was then performed with a cystitome needle on a Healon. Hydrodelineation and hydrodissection were performed. The pupil was very small and was maximized using viscoelastic and capsulorrhexis eye is. The phacoemulsification unit is introduced, and sculpting notice used to groove the central lens. It is then removed in chopping mode. There were airtight iris adhesions to the lens capsule which may have been part of the problem with dilation. Epi nucleus is removed with epinuclear mode and irrigation aspiration was used to remove the peripheral cortex. The posterior capsule is polished. The intraocular lens is selected, inspected, power confirmed, and placed in the posterior chamber. The wound was stromally hydrated and tested for leaks, there was none and it was left sutureless. Vigamox 0.1 cc was placed into the anterior chamber. Kenalog 0.2 cc was placed in the superior subconjunctival space. A drop of antibiotic and was placed and the eye was patched and shielded. The patient was stable and returned to the recovery room in excellent condition. Dictated by: Shweta Sheldon MD Copy to: [facility]
[2019-01-05] MEDS: PROPARACAINE 0.5% OPHTH SOL 2 DROPS EYE-OP (08:57)
[2019-01-05] MEDS: CATARACT EYE COMPOUND (10 DROPS/SYRINGE) 3 DROPS EYE-OP (08:57)
[2019-01-05 09:12] VITALS: BP 107/60; PULSE 65; RESP 16; TEMP 36.7; O2SAT 95; BMI 28.6
--- NOTE | 2019-01-05 10:21 | SUR.OPER ---
Supine on eye stretcher, head on extension cradle secured with tape. Arms tucked at sides with blanket. Pillow under knees.
[2019-01-05] MEDS: MOXIFLOXACIN INJ 5 MG/ML VIAL EYE-OP (10:23)
[2019-01-05] MEDS: PHENYLEPHRINE/LIDOCAINE VIAL (OR) 0.2 ML EYE-OP (10:23)
[2019-01-05] MEDS: TRIAMCINOLONE 50 MG/5 ML VIAL INJ (10:24)
[2019-01-05] MEDS: BALANCED SALT IRRIG SOLN NO.2 15 ML IRR (10:24)
[2019-01-05] MEDS: CHONDROIDTIN/SOD HYALURONATE 1.05 ML SYRINGE INTRAOCULA (10:24)
[2019-01-05] MEDS: LIDOCAINE 2% 4 ML, BUPIVACAINE 0.5% (PF) 4 ML, HYALURONIDASE 150 UNIT INJ (10:25)
[2019-01-05] MEDS: HYALURONATE SODIUM 10 MG/ML SYRINGE INJ (10:25)
[2019-01-05] MEDS: BALANCED SALT IRRIG SOLN NO.2 500 ML, EPINEPHrine 1 MG IRR (10:26)
[2019-01-05] MEDS: NEOMYCIN/POLY/DEX OPHTH OINT 1 APPLIC EYE-RIGHT (10:27)
[2019-01-05] MEDS: LIDOCAINE JELLY 2% 5 ML 1 APPLIC TOP (10:28)
[2019-01-05 11:07] VITALS: BP 150/68; PULSE 55; RESP 16; TEMP 36.7; O2SAT 99
== END 2019-01-05 11:12 | disposition home or self-care (01) ==
PROVIDERS: PCP Internal Medicine; Visit Provider Ophthalmology
PROC: (CPT 66984; principal; 2019-01-05 09:45)
DX: H25.811 Combined forms of age-related cataract, right eye (principal); E11.9 Type 2 diabetes mellitus without complications; I10 Essential (primary) hypertension; E78.00 Pure hypercholesterolemia, unspecified; F32.9 Major depressive disorder, single episode, unspecified
CPT/HCPCS: 66984; J0171; J2704; J3301; J3470

== ENCOUNTER 2019-01-19 13:19 | Day surgery (SDC) | payer MEDICARE, OTHER, SELFPAY ==
--- NOTE | 2019-01-15 14:05 | PM.PREOP ---
Pre-operative Note Interval Note History & Physical reviewed/Exam performed by Physician: Yes Changes to H&P: No H&P completed within 30 days and has changed as indicated here:: Glucose was checked prior to surgery in stable. 105.
--- NOTE | 2019-01-15 14:06 | P.OP_ITS ---
Operative Date/Time/Diagnoses Date of procedure: 01/19/19 Time of procedure: 14:15 Procedure & Clinicians Procedure: Preoperative diagnoses: 1. Left advanced nuclear sclerotic and cortical cataract. 2. Diabetes without retinopathy stable for surgery. 3. Hypertension. 4. Previous colorectal cancer. 5. Depression 6. 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 7. Anxiety. Postoperative diagnoses: 1. Complex cataract removed by phacoemulsification with placement of posterior chamber intraocular lens and use of a Malyugin ring.. Procedure: Phacoemulsification with posterior chamber intraocular lens implant and use of a Malyugin ring due to non dilating pupil. Surgeon: Shweta Sheldon MD Complications: None Specimen: None Implant: ZCBOO+21.0 Blood loss: None Anesthesia: Retrobulbar with monitored standby Description of procedure: Patient presents with a complaint of decreased vision due to cataract which is affecting activities of daily living. She has reduced driving and reading vision. Her blood glucose is stable for surgery and her night medications reduced by half in her morning metformin. She was a very poorly-controlled diabetic now improving rapidly. The patient wants surgery to improve vision. Multiple sessions of dilating drops were given to the patient with poor result. She had been noted to have iris synechiae in her right eye with recent surgery with the same issue and this is probably due to her diabe mervin. She will need a Maluguin ring for safety. The patient was taken to the operating room and given IV sedation. A retrobulbar block consisting of 6 cc of 2% xylocaine without epinephrine mixed half and half with 0.5% Marcaine with 1 cc of hyaluronidase added is placed between the medial and lateral 1/3 of the inferior orbital rim. The eye is manually massaged for 30 sec, prepped using Betadine solution, and draped in the usual sterile fashion. Temporal approach was made, a 1 mm side-port incision was made 90? from the proposed clear corneal incision position. Phenylephrine 1.5% mixed with 1% xylocaine 0.2 cc was placed into the anterior chamber. Viscoat followed by Healon was then placed. A 2.6 mm clear incision with a 2.6 mm blade was placed. A 7.0 mm Maluyion iris ring was inspected placed into the anterior chamber and fully open. Each quadrant of the iris was then hooked sequentially using a special manipulate. Inadequate pupil resulting. A 360 degree capsulorrhexis style capsulotomy was then performed with a cystitome needle on a Pufferfishon. Hydrodelineation and hydrodissection were performed. The phacoemulsification unit is introduced, and sculpting notice used to groove the central lens. It is then removed in chopping mode. There were posterior iris adhesions to the lens but these were broken during the surgery. Epi nucleus is removed with epinuclear mode and irrigation aspiration was used to remove the peripheral cortex. The posterior capsule is polished. The intraocular lens is selected, inspected, power confirmed, and placed in the posterior chamber. All cortex was removed. Extra viscoelastic was placed and then the iris ring is sequentially removed from each quadrant placed into the device and removed from the eye. The viscoelastic was again removed. The wound was stromally hydrated and tested for leaks, there was none and it was left sutureless. Vigamox 0.1 cc was placed into the anterior chamber. Kenalog 0.2 cc was placed in the superior subconjunctival space. A drop of antibiotic and was placed and the eye was patched and shielded. The patient was stable and returned to the recovery room in excellent condition. Dictated by: Shweta Sheldon MD Copy to: [facility]
[2019-01-19 13:45] VITALS: BP 130/70; PULSE 66; RESP 15; TEMP 36.1; O2SAT 96
[2019-01-19 14:01] VITALS: BMI 27.1
[2019-01-19] MEDS: PROPARACAINE 0.5% OPHTH SOL 2 DROPS EYE-OP (14:05)
[2019-01-19] MEDS: CATARACT EYE COMPOUND (10 DROPS/SYRINGE) 3 DROPS EYE-OP (14:11)
[2019-01-19] MEDS: PHENYLEPHRINE/LIDOCAINE VIAL (OR) 0.2 ML EYE-OP (15:09)
[2019-01-19] MEDS: MOXIFLOXACIN INJ 5 MG/ML VIAL EYE-OP (15:10)
[2019-01-19] MEDS: LIDOCAINE 2% 4 ML, BUPIVACAINE 0.5% (PF) 4 ML, HYALURONIDASE 150 UNIT INJ (15:10)
[2019-01-19] MEDS: ERYTHROMYCIN OPHTH 1 GM OINT 1 APPLIC EYE-LEFT (15:11)
[2019-01-19] MEDS: TRIAMCINOLONE 50 MG/5 ML VIAL INJ (15:11)
[2019-01-19] MEDS: HYALURONATE SODIUM 10 MG/ML SYRINGE INJ (15:12)
[2019-01-19] MEDS: BALANCED SALT IRRIG SOLN NO.2 500 ML, EPINEPHrine 1 MG IRR (15:12)
[2019-01-19] MEDS: CHONDROIDTIN/SOD HYALURONATE 1.05 ML SYRINGE INTRAOCULA (15:12)
[2019-01-19 15:50] VITALS: BP 175/74; PULSE 51; RESP 14; TEMP 36.9; O2SAT 97
== END 2019-01-19 16:02 | disposition home or self-care (01) ==
LOC: OR 13:22
PROVIDERS: PCP Internal Medicine; Visit Provider Ophthalmology
PROC: (CPT 66982; principal; 2019-01-19 14:15)
DX: H25.812 Combined forms of age-related cataract, left eye (principal); E11.9 Type 2 diabetes mellitus without complications; I10 Essential (primary) hypertension; H21.5 Other and unspecified adhesions and disruptions of iris and ciliary body; F41.9 Anxiety disorder, unspecified
CPT/HCPCS: 66982; J0171; J2704; J3301; J3470

== ENCOUNTER → 2019-05-23 12:22 | Outpatient (CLI) | payer MEDICARE, OTHER, SELFPAY ==
--- NOTE | 2019-05-23 | DI.MG.S_ITS ---
BILATERAL DIGITAL SCREENING MAMMOGRAM 3D/2D WITH CAD: 05/23/2019 CLINICAL: Routine screening. Comparison is made to exams dated: 02/19/2018 mammogram, 11/06/2016 mammogram, and 07/05/2015 mammogram - [facility]. There are scattered fibroglandular elements in both breasts. Current study was also evaluated with a Computer Aided Detection (CAD) system. There are benign calcifications in both breasts. No significant masses, calcifications, or other findings are seen in either breast. There has been no significant interval change. IMPRESSION: There is no mammographic evidence of malignancy. A 1 year screening mammogram is recommended. This exam was interpreted at Station ID: [id number]. NOTE: For mammograms, a report in lay terms will be sent to the patient. Approximately 15% of breast malignancies will not be visualized mammographically. In the management of a palpable breast mass, a negative mammogram must not discourage biopsy of a clinically suspicious lesion. Electronically Signed By: Mehdi montelongo/dian:05/23/2019 14:50:00 letter sent: Normal Exam ACR BI-RADS Category 2: Benign Finding(s) 3342F
== END ==
PROVIDERS: PCP Internal Medicine; Referring Provider Internal Medicine; Visit Provider Internal Medicine
DX: Z12.31 Encounter for screening mammogram for malignant neoplasm of breast (principal)
CPT/HCPCS: 77063; 77067

== ENCOUNTER → 2019-10-26 17:05 | Outpatient (CLI) | payer MEDICARE, OTHER, SELFPAY ==
--- NOTE | 2019-10-26 | DI.RAD.S_ITS ---
PROCEDURE: XR WRIST LT MIN 3V INDICATIONS: LEFT WRIST PAIN TECHNIQUE: 4 views of the wrist were acquired. COMPARISON: None. FINDINGS: Bones: No fractures or dislocations. No suspicious bony lesions. 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 Scaphoid view: No trauma to the scaphoid is found. Soft tissues: No suspicious soft tissue calcifications. IMPRESSION: No trauma found. 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 Dictated by: Greg Morrow M.D. on 10/27/2019 at 8:56 Approved by: Greg Morrow M.D. on 10/27/2019 at 9:22
== END ==
PROVIDERS: PCP Internal Medicine; Referring Provider Student in an Organized Health Care Education/Training Program; Visit Provider Student in an Organized Health Care Education/Training Program
DX: M25.532 Pain in left wrist (principal); M19.042 Primary osteoarthritis, left hand
CPT/HCPCS: 73110

== ENCOUNTER → 2020-05-17 14:53 | Outpatient (ROUT) | payer MEDICARE, OTHER, SELFPAY ==
[2020-05-17 16:25] LABS: BUN Creatinine Ratio 26.4 (6-22); Blood Urea Nitrogen 29 mg/dL (7-17); Calcium 9.9 mg/dL (8.4-10.2); Carbon Dioxide 26 mmol/L (22-32); Estimated Glomerular Filt Rate 48.8 mL/min (>60); Glucose 119 mg/dL (80-110); Phosphorous 4.4 mg/dL (2.8-4.1); Potassium 5.2 mmol/L (3.4-5.1); Sodium 140 mmol/L (137-145)
[2020-05-17 16:51] LABS: Chloride 109 mmol/L (98-107); HEMOLYSIS 18 (0-50)
[2020-05-18 07:22] LABS: Parathyroid Hormone Int 38 pg/mL (15-65)
== END ==
PROVIDERS: PCP Internal Medicine; Visit Provider Internal Medicine
DX: N18.30 Chronic kidney disease, stage 3 unspecified (principal)
CPT/HCPCS: 80048; 83970; 84100

== ENCOUNTER → 2020-06-09 14:04 | Outpatient (CLI) | payer MEDICARE, OTHER, SELFPAY ==
--- NOTE | 2020-06-09 | DI.MG.S_ITS ---
BILATERAL DIGITAL SCREENING MAMMOGRAM 3D/2D WITH CAD: 06/09/2020 CLINICAL: Routine screening. Comparison is made to exams dated: 05/23/2019 mammogram, 02/19/2018 mammogram, and 11/06/2016 mammogram - [facility]. There are scattered fibroglandular elements in both breasts. Current study was also evaluated with a Computer Aided Detection (CAD) system. There are calcifications in both breasts. No significant masses, calcifications, or other findings are seen in either breast. There has been no significant interval change. IMPRESSION: BENIGN There is no mammographic evidence of malignancy. A 1 year screening mammogram is recommended. This exam was interpreted at Station ID: [id number]. NOTE: For mammograms, a report in lay terms will be sent to the patient. Approximately 15% of breast malignancies will not be visualized mammographically. In the management of a palpable breast mass, a negative mammogram must not discourage biopsy of a clinically suspicious lesion. Electronically Signed By: Shakeel Castro M.D. at/:06/11/2020 08:55:26 letter sent: Normal Exam ACR BI-RADS Category 2: Benign Finding(s) 3342F
== END ==
PROVIDERS: PCP Internal Medicine; Referring Provider Internal Medicine; Visit Provider Internal Medicine
DX: Z12.31 Encounter for screening mammogram for malignant neoplasm of breast (principal)
CPT/HCPCS: 77063; 77067

== ENCOUNTER → 2020-08-16 14:43 | Outpatient (ROUT) | payer MEDICARE, OTHER, SELFPAY ==
[2020-08-16 15:02] LABS: Aspartate Aminotransferase 24 IU/L (14-36); BUN Creatinine Ratio 25.2 (6-22); Blood Urea Nitrogen 27 mg/dL (7-17); Calcium 9.9 mg/dL (8.4-10.2); Carbon Dioxide 25 mmol/L (22-32); Chloride 108 mmol/L (98-107); Cholesterol 108 mg/dL (140-199); Estimated Glomerular Filt Rate 50.4 mL/min (>60); Glucose 128 mg/dL (80-110); HDL Cholesterol 49 mg/dL (40-60); HEMOLYSIS 19 (0-50); LDL Cholesterol Calculated 29 mg/dL (<100); Potassium 4.7 mmol/L (3.4-5.1); Sodium 142 mmol/L (137-145); Triglycerides 148 mg/dL (35-150)
[2020-08-16 15:59] LABS: Free T4, Direct Thyroxine 1.15 ng/dL (0.78-2.19)
== END ==
PROVIDERS: PCP Internal Medicine; Visit Provider Internal Medicine
DX: N18.30 Chronic kidney disease, stage 3 unspecified (principal); E78.2 Mixed hyperlipidemia; E03.9 Hypothyroidism, unspecified
CPT/HCPCS: 80048; 80061; 84439; 84443; 84450

== ENCOUNTER → 2020-09-17 11:09 | Outpatient (CLI) | payer MEDICARE, OTHER, SELFPAY ==
[2020-09-17 13:47] LABS: COVID19 -Nasal RAPID Negative (Negative)
== END ==
PROVIDERS: PCP Internal Medicine; Visit Provider Student in an Organized Health Care Education/Training Program
DX: Z01.812 Encounter for preprocedural laboratory examination (principal); Z20.822 Contact with and (suspected) exposure to COVID-19
CPT/HCPCS: 87635; C9803

== ENCOUNTER 2020-09-19 08:15 | Day surgery (SDC) | payer MEDICARE, OTHER, SELFPAY ==
--- NOTE | 2020-09-19 | PATH_ITS ---
[facility] Accession Number: [id number] . 01 Material submitted: . colon - ASCENDING COLON POLYP . 01 Clinical history: . A: ASCENDING COLON POLYP (HISTORY OF COLON CANCER) . 02 Diagnosis: Ascending Colon Polyp, Biopsy: Tubular adenoma. MRV 09/24/2020 1121 Local . 02 Electronically signed: . Ladi Gutierrez MD, Pathologist NPI- [id number] . 01 Gross description: . ASCENDING COLON POLYP: Received in formalin is 1 fragment(s) of bojorquez, soft tissue measuring 0.3 x 0.2 x 0.2 cm submitted entirely in 1 cassette(s) /SIMEON 09/20/2020 0821 Local . 02 Pathologist provided ICD-10: D12.2 . 02 CPT . 613155 Performed at: 01 [facility] Cyt[facility] [address] [id number] MD Mehdi Sequeira MD Phone: [phone] Performed at: 02 [facility] [address] [place] [id number] MD Ladi Gutierrez MD Phone: [phone]
[2020-09-19 08:45] VITALS: BP 134/69; PULSE 67; RESP 16; TEMP 36.6; O2SAT 98; BMI 28.6
[2020-09-19] MEDS: LACTATED RINGERS 1,000 ML 200 ML IV (08:50)
--- NOTE | 2020-09-19 09:41 | PM.HP.1 ---
History of Present Illness History of Present Illness Chief complaint: [facility] [place] Patient History Medical History (Updated 09/19/20 @ 06:53 by Christy Carballo RN) Colon cancer DMII (diabetes mellitus, type 2) History of blood clots HTN (hypertension) Hyperlipidemia Hypothyroidism Insulin dependent diabetes mellitus Single kidney Surgical History (Updated 09/19/20 @ 06:53 by Chirsty Carballo RN) History of colonoscopy History of nephrectomy (~2006) S/P colon resection S/P total abdominal hysterectomy (~1977) Family & Social History Social History: household members spouse Tobacco & Substance use: Smoking Status Former smoker alcohol intake frequency 0-2 drinks per day Substance Use Type does not use Meds Home Medications and Allergies Home Medications Medication Instructions Recorded Confirmed Type sertraline 50 mg PO QPM #0 10/13/12 09/19/20 History simvastatin 40 mg PO BEDTIME #0 10/13/12 01/24/20 History aspirin 81 mg PO DAILY 04/28/18 09/19/20 History losartan 50 mg PO DAILY 04/28/18 09/19/20 History acetaminophen 500 mg tablet 500 mg PO TID 05/20/18 09/19/20 History gabapentin 100 mg PO TID 07/30/18 09/19/20 History insulin degludec [Tresiba 10 units SUBCUT QPM 07/30/18 09/19/20 History FlexTouch U-100] levothyroxine 112 mcg PO DAILY 07/30/18 09/19/20 History metformin 1,000 mg PO BID 07/30/18 09/19/20 History Allergies Allergy/AdvReac Type Severity Reaction Status Date / Time diphenhydramine AdvReac Intermediate Agitated Verified 09/19/20 08:36 lisinopril AdvReac Cough Verified 09/19/20 08:36 Review of Systems Review of Systems ROS: Yes All systems reviewed with the patient and are negative except as otherwise documented Exam Vital Signs (past 8 hours): - 09/19/20 08:45 Temperature 97.8 F Pulse Rate 67 Respiratory Rate 16 Blood Pressure 134/69 Pulse Oximetry 98 Oxygen Delivery Method Room Air Narrative Exam Narrative: Awake alert and oriented x3, pupils equal round reactive to light, oropharynx clear, heart regular rate and rhythm, lungs clear to auscultation bilaterally, abdomen nontender and nondistended, extremities without edema, no gross neurologic deficits noted Assessment & Plan Assessment & Plan narrative: History of colon cancer for colonoscopy COVID-19 COVID-19 status: Negative
[2020-09-19] MEDS: MIDAZOLAM 5 MG/5 ML VIAL IV (09:48)
[2020-09-19] MEDS: fentaNYL 250 MCG/5 ML INJ IV (09:48)
--- NOTE | 2020-09-19 10:09 | PM.OP.ENDO ---
Operative Date/Time/Diagnoses Date of procedure: 09/19/20 Procedure & Clinicians Study performed: Colonoscopy with cold forceps polypectomy Moderate conscious sedation was administered by the endoscopy nurse and supervised by the endoscopist. The following parameters were monitored: Oxygen saturation, heart rate, blood pressure, and response to care. 3 mg of midazolam and 100 mcg of fentanyl given Same procedure as scheduled: Yes Indications: History of colon cancer. Last colonoscopy was in 2014. Procedure Notes Procedure in detail: Prior to the procedure, history and physical was performed, and patient medications and allergies were reviewed. Preprocedure nursing history and assessment was reviewed. Patient identification and proposed procedure were verified by the physician and nurse in the procedure room. The physical status of the patient was reassessed after the procedure. After informed consent was obtained including risks, benefits, and alternatives, the scope was passed under direct vision. Throughout the procedure, the patient's blood pressure, pulse, and oxygen saturations were monitored continuously. The colonoscope was introduced through the colostomy and advanced to the cecum as identified by the appendiceal orifice and ileocecal valve. The patient tolerated the procedure well. Bowel prep was deemed adequate to detect polyps greater than 5 mm. The colostomy was normal appearing. A 2 mm sessile polyp was noted in the proximal ascending colon and was removed the cold biopsy forceps and retrieved. A small medium mouthed diverticula was noted in the descending colon Impression: Descending colon diverticulosis 2 mm polyp removed from the ascending colon Intact colostomy Sedation minutes: 21 Complications: other (EBL minimal. Complications) Post-procedure Plan for aftercare: Follow-up pathology results Repeat colonoscopy in 5 years for colon cancer surveillance Resume home medications Resume previous diet Patient has a contact number available for emergencies. The signs and symptoms of potential delayed complications were discussed with the patient. Return to normal activities tomorrow. Written discharge instructions were provided to the patient. Discharge home with escort
--- NOTE | 2020-09-19 10:12 | SUR.OPER ---
colostomy bag removed for procedure. Site cleaned and patients own appliance replaced at end of procedure
[2020-09-19 10:15] VITALS: BP 109/57; PULSE 58; RESP 10; TEMP 36.2; O2SAT 97
[2020-09-19 10:20] VITALS: BP 110/55; PULSE 65; RESP 12; O2SAT 95
[2020-09-19 10:25] VITALS: BP 109/54; PULSE 61; RESP 10; O2SAT 96
[2020-09-19 10:30] VITALS: BP 114/54; PULSE 62; RESP 11; TEMP 36.3; O2SAT 96
[2020-09-19 10:34] VITALS: BP 115/52; PULSE 58; RESP 12; TEMP 36.2; O2SAT 96
== END 2020-09-19 10:48 | disposition home or self-care (01) ==
PROVIDERS: PCP Internal Medicine; Referring Provider Internal Medicine; Visit Provider Internal Medicine
PROC: 0DJD8ZZ Inspection of Lower Intestinal Tract, Via Natural or Artificial Opening Endoscopic (ICD-10-PCS; CPT 45378; principal; 2020-09-19 09:30)
DX: Z12.11 Encounter for screening for malignant neoplasm of colon (principal); Z85.038 Personal history of other malignant neoplasm of large intestine; Z93.3 Colostomy status; E11.9 Type 2 diabetes mellitus without complications; I10 Essential (primary) hypertension; E78.5 Hyperlipidemia, unspecified; E03.9 Hypothyroidism, unspecified; Z79.4 Long term (current) use of insulin; K57.30 Diverticulosis of large intestine without perforation or abscess without bleeding; D12.2 Benign neoplasm of ascending colon
CPT/HCPCS: 44389; J2250; J3010

== ENCOUNTER → 2021-08-28 09:28 | Outpatient (CLI) | payer MEDICARE, OTHER, SELFPAY ==
[2021-08-28 10:12] LABS: Hemoglobin A1C% w Est Avg Glu 7.6 % (4.0-6.0)
[2021-08-28 10:16] LABS: Hematocrit 38.3 % (36-46); Hemoglobin 12.5 g/dL (12.0-16.0); Mean Corpuscular HGB Conc 32.7 % (30-36); Mean Corpuscular Hemoglobin 29.5 PG (26-34); Mean Corpuscular Volume 90.2 fL (80-100); Platelet Count 180 X10^3/uL (150-400); Red Blood Cell Count 4.24 X10^6/uL (4.0-5.2); Red Cell Distribution Width 13.3 % (11.6-14.8); White Blood Cell Count 6.1 X10^3/uL (4.5-11.0)
[2021-08-28 10:56] LABS: Alanine Aminotransferase 15 IU/L (<35); Albumin 4.5 g/dL (3.5-5.0); Albumin Globulin Ratio 1.6 (1.0-2.8); Alkaline Phosphatase 59 U/L (38-126); Aspartate Aminotransferase 24 IU/L (14-36); BUN Creatinine Ratio 21.3 (6-22); Bilirubin Total 0.4 mg/dL (0.2-1.3); Blood Urea Nitrogen 26 mg/dL (7-17); Calcium 9.7 mg/dL (8.4-10.2); Carbon Dioxide 26 mmol/L (22-32); Chloride 109 mmol/L (98-107); Cholesterol 132 mg/dL (140-199); Estimated Glomerular Filt Rate 47 mL/min (>60); Globulin 2.9 g/dL (1.7-4.1); Glucose 130 mg/dL (80-110); HDL Cholesterol 54 mg/dL (40-60); HEMOLYSIS < 15 (0-50); LDL Cholesterol Calculated 29 mg/dL (<100); Potassium 4.6 mmol/L (3.4-5.1); Sodium 143 mmol/L (137-145); Total Protein 7.4 g/dL (6.3-8.2); Triglycerides 246 mg/dL (35-150)
[2021-08-28 11:12] LABS: Creatinine Urine Random 141.2 mg/dL
[2021-08-28 11:15] LABS: Microalbumin Urine Random 15.4 mg/dL (0-1.6)
[2021-08-28 11:23] LABS: TSH w/ Reflex to FT4 1.61 uIU/mL (0.47-4.68)
== END ==
PROVIDERS: PCP Internal Medicine; Referring Provider Internal Medicine; Visit Provider Internal Medicine
DX: E11.42 Type 2 diabetes mellitus with diabetic polyneuropathy (principal); E78.2 Mixed hyperlipidemia; N18.32 Chronic kidney disease, stage 3b
CPT/HCPCS: 36415; 80053; 80061; 82043; 82570; 83036; 84443; 85027

== ENCOUNTER → 2021-10-01 11:02 | Outpatient (CLI) | payer MEDICARE, OTHER, SELFPAY ==
--- NOTE | 2021-10-01 | DI.MG.S_ITS ---
BILATERAL DIGITAL SCREENING MAMMOGRAM 3D/2D WITH CAD: 10/01/2021 CLINICAL: Routine screening. Comparison is made to exams dated: 06/09/2020 mammogram, 05/23/2019 mammogram, and 02/19/2018 mammogram - [facility]. There are scattered fibroglandular elements in both breasts. Current study was also evaluated with a Computer Aided Detection (CAD) system. There are benign calcifications in both breasts. There also are benign post operative findings in both breasts. No significant masses, calcifications, or other findings are seen in either breast. There has been no significant interval change. IMPRESSION: BENIGN There is no mammographic evidence of malignancy. A 1 year screening mammogram is recommended. This exam was interpreted at Station ID: [id number]. NOTE: For mammograms, a report in lay terms will be sent to the patient. Approximately 15% of breast malignancies will not be visualized mammographically. In the management of a palpable breast mass, a negative mammogram must not discourage biopsy of a clinically suspicious lesion. Electronically Signed By: Shakeel brown/dian:10/01/2021 16:34:14 letter sent: Normal Exam ACR BI-RADS Category 2: Benign Finding(s) 3342F
== END ==
PROVIDERS: Family Provider Internal Medicine; PCP Internal Medicine; Referring Provider Internal Medicine; Visit Provider Internal Medicine
DX: Z12.31 Encounter for screening mammogram for malignant neoplasm of breast (principal)
CPT/HCPCS: 77063; 77067

== ENCOUNTER 2021-11-16 13:39 | Emergency (ER) | payer MEDICARE, OTHER, SELFPAY ==
[2021-11-16 14:09] VITALS: BP 186/79; PULSE 70; RESP 14; TEMP 36.6; O2SAT 97; BMI 29.1
--- NOTE | 2021-11-16 14:20 | DI.CT.S_ITS ---
PROCEDURE: CT HEAD/BRAIN WO CON INDICATIONS: head pain 3 weeks TECHNIQUE: Noncontrast 4.5 mm thick angled axial sections acquired from the foramen magnum to the vertex, with coronal and sagittal reformats. For radiation dose reduction, the following was used: automated exposure control, adjustment of mA and/or kV according to patient size. COMPARISON: [facility], CT, HEAD WITH AND WITHOUT CONTRAST, 08/13/2011, 10:43. [facility], MR, BRAIN WITH AND WITHOUT CONTRAS, 09/30/2011, 7:19. FINDINGS: Image quality: Excellent. CSF spaces: Basal cisterns are patent. No extra-axial fluid collections. The ventricles are symmetric in size and shape. Brain: No intracranial bleeds or masses. There is cerebral volume loss for age, with resultant ventricular and sulcal prominence. There are periventricular and deep white matter chronic small vessel ischemic changes. There is intracranial internal carotid artery atherosclerosis. Skull and face: Calvarium and visualized facial bones appear intact, without suspicious lesions. There is a benign, stable 2 cm osteoma seen along the lateral aspect of the Brian table of the left calvarium, as on series 3, image 19. Sinuses: Visualized sinuses and mastoids are clear. IMPRESSION: Unremarkable intracranial study for age, without a cause head pain identified. Incidental note is made of: Left calvarial osteoma, stable Dictated by: Barrera Bay M.D. on 11/16/2021 at 15:04 Approved by: Barrera Bay M.D. on 11/16/2021 at 15:06
--- NOTE | 2021-11-16 18:17 | DI.RAD.S_ITS ---
PROCEDURE: XR CERVICAL SPINE 2V OR 3V INDICATIONS: Left neck pain TECHNIQUE: 3 view(s) of the cervical spine were acquired. COMPARISON: None. FINDINGS: Bones: No fractures or dislocations to the C7 level. The lateral masses of C1 appear intact on the odontoid view. No suspicious bony lesions. Soft tissues: No prevertebral soft tissue swelling. IMPRESSION: No acute finding. Dictated by: Emilio Bowen M.D. on 11/16/2021 at 20:34 Approved by: Emilio Bowen M.D. on 11/16/2021 at 20:34
[2021-11-16] MEDS: ONDANSETRON 4 MG ODT SL (18:24)
[2021-11-16] MEDS: HYDROCODONE/ACET 5/325 TABLET 1 TAB PO (18:27)
[2021-11-16] MEDS: KETOROLAC 30 MG/ML VIAL IM (18:28)
--- NOTE | 2021-11-16 18:33 | ED.HA ---
HPI - Headache General Chief Complaint: Headache Stated Complaint: Headache/stiff neck left side for 3 weeks Time Seen by Provider: 11/16/21 18:00 Mode of arrival: Ambulatory History of Present Illness HPI Narrative: Patient here with . Complaints 3 weeks of constant left sided lower headache with left neck pain and left trapezius pain. No known injury. No previous neck surgeries MRI or physical therapy. Primary care sent patient to physical therapy for complaints of bilateral shoulder pain possible rotator cuff problem but when she saw physical therapy, therapist noted she is very tender at the trapezius and there was no problem with her shoulders. She has reproducible pain with rotating head and neck left and right and tilting up and down. No numbness or tingling to the hands the. No weakness to the hands or feet. No saddle paresthesia no bowel or bladder incontinence or retention. Worse at night when she tries to sleep. The pain keeps her awake. No relief with [id number] medication. Patient does have history of chronic kidney disease. Agrees with 1 dose of Toradol here. Reviewed patient renal function from August of this year. Blood pressure noted. Likely related to her pain at this time. Patient resting comfortably. In no distress. Physical therapy did mention to her that she needs MRI of her neck. She has appointment with her family doctor December 02. Related Data Home Medications Medication Instructions Recorded Confirmed aspirin 81 mg tablet,delayed 81 mg PO DAILY 04/28/18 10/02/21 release acetaminophen 500 mg tablet 500 mg PO TID 05/20/18 10/02/21 (Tylenol Extra Strength) ascorbic acid (vitamin C) 500 mg 500 mg PO DAILY 01/23/21 10/02/21 tablet (Vitamin C) cholecalciferol (vitamin D3) 50 50 mcg PO DAILY 01/23/21 10/02/21 mcg (2,000 unit) capsule (Vitamin D3) gabapentin 100 mg capsule 500 mg PO DAILY 08/28/21 10/02/21 Previous Rx's Medication Instructions Recorded insulin degludec 100 unit/mL (3 12 unit (0.12 mL) SUBCUT QPM #15 mL 09/04/21 mL) subcutaneous pen levothyroxine 125 mcg tablet 125 mcg PO DAILY #90 tabs 09/04/21 losartan 50 mg tablet 50 mg PO DAILY #90 tabs 09/04/21 metformin 500 mg tablet 1,000 mg PO BID #360 tabs 09/04/21 rosuvastatin 20 mg tablet 20 mg PO DAILY #90 tabs 09/04/21 sertraline 50 mg tablet 50 mg PO QPM #90 tabs 09/04/21 baclofen 10 mg tablet 10 mg PO TID #21 tabs 11/16/21 Allergies Allergy/AdvReac Type Severity Reaction Status Date / Time diphenhydramine AdvReac Intermediate Agitated Verified 11/16/21 14:09 lisinopril AdvReac Cough Verified 11/16/21 14:09 Review of Systems Review of Systems Narrative: GENERAL: Denies chills, fatigue, malaise, fever, sweats. HEENT: Denies sinus pain, ear pain, sore throat RESPIRATORY: Denies dyspnea, cough CARDIOVASCULAR: Denies chest pain, palpitations GASTROINTESTINAL: Denies nausea, vomiting, abdominal pain : Denies dysuria, frequency, hematuria MUSCULOSKELETAL: Positive for muscle or bony pain SKIN: Denies rash, skin lesions NEUROLOGIC: Denies weakness, numbness ROS Unobtainable: All systems reviewed & are unremarkable except as noted in HPI and below Patient History Medical History Abnormal Pap smear of cervix (~1978) Acquired hypothyroidism Anemia (~1966) Anxiety Cataracts, bilateral (~2019) Chicken pox Chronic kidney disease, stage 3b Colon cancer Colon polyps (~1993) Depression, recurrent (~1984) DMII (diabetes mellitus, type 2) (~1999) Essential hypertension Foot pain (~2018) Hemorrhoid History of blood clots History of cervical cancer (~1979) History of colon cancer (~1993) History of colon polyps HTN (hypertension) Hyperlipidemia Hypothyroidism (~1999) Insulin dependent diabetes mellitus Kidney disease (~1995) Knee pain (~2016) Limp Measles Migraines Mixed hyperlipidemia Mumps Numerous moles Osteoarthritis Polyneuropathy, unspecified Rubella Scoliosis Single kidney Tendonitis of both rotator cuffs Type 2 diabetes mellitus with polyneuropathy Surgical History Anesthesia History of cholecystectomy (~1994) History of colonoscopy History of hand surgery (~2019) History of nephrectomy (~2006) History of parathyroidectomy (~2009) History of tonsillectomy (~1956) S/P colon resection (~1994) S/P total abdominal hysterectomy (~1977) Family History Father Stroke Mother Cancer Brother Cancer Brother Cancer Sister Cancer Sister Cancer Grandmother Kidney failure Grandfather No problems noted. Grandmother Diabetes mellitus Social History household members: spouse Smoking Status: Former smoker Smoking Status: Former smoker alcohol intake frequency: 0-2 drinks per day Substance Use Type: does not use Exam Narrative Exam Narrative: GENERAL: in no distress, not toxic not dyspneic HEAD: Normocephalic. Reproducible left greater than right occipital scalp tenderness EYES: Pupils equal round No scleral icterus. ENT: Mucous membranes moist. NECK: Trachea midline. Reproducible left trapezius muscle tenderness and tenderness to the bilateral occipital scalp, left greater than right. Increased pain with rotating head left and right as well as tilting up and down. No midline tenderness or step-off. CARDIOVASCULAR: Regular rate and rhythm without murmurs RESPIRATORY: Clear to auscultation. Breath sounds equal bilaterally. No wheezes, rales, or rhonchi. GASTROINTESTINAL: Abdomen soft, non-tender EXTREMITIES: No gross deformities. BACK: No flank tenderness. NEURO: AOx4. Clear speech no facial droop steady self ?gait no foot drop. ?Light touch intact to bilateral face hands and feet. ?Strong equal grab jack worker bilaterally and ankle flexion hip flexion and knee flexion. ?Strong bilateral patellar reflexes. ?Steady Romberg, negative pronator drift SKIN: Warm and dry PSYCH: Not anxious, is cooperative Initial Vital Signs Initial Vital Signs: Vital Signs Temperature 97.8 F 11/16/21 14:09 Pulse Rate 70 11/16/21 14:09 Respiratory Rate 14 11/16/21 14:09 Blood Pressure 186/79 H 11/16/21 14:09 Pulse Oximetry 97 11/16/21 14:09 Oxygen Delivery Method 11/16/21 14:09 Course Course Course Narrative: No new issues during course of stay Orders Ordered: Discontinued Medications Hydrocodone Bitart/Acetaminophen (Hydrocodone/Acet 5/325 Tablet) 1 tab PO NOW ONE Stop: 11/16/21 18:17 Last Admin: 11/16/21 18:27 Dose: 1 tab Documented By: ANABEL Hydromorphone HCl (Hydromorphone 1 Mg Inj) 1 mg IM NOW ONE Stop: 11/16/21 20:26 Last Admin: 11/16/21 20:52 Dose: 1 mg Documented By: ANTONIO Ketorolac Tromethamine (Ketorolac 30 Mg/Ml Vial) 30 mg IM NOW ONE Stop: 11/16/21 18:17 Last Admin: 11/16/21 18:28 Dose: 30 mg Documented By: ANABEL Ondansetron HCl (Ondansetron 4 Mg Odt) 4 mg SL NOW ONE Stop: 11/16/21 18:17 Last Admin: 11/16/21 18:24 Dose: 4 mg Documented By: ANABEL Reevaluation(s) Reevaluation #1: Reviewed results with patient and . Toradol and hydrocodone did not help patient's pain. Dilaudid was given to for improvement. Reviewed results with them. They do agree for outpatient follow-up with primary care for MRI of the cervical spine. Will continue physical therapy at this time. As it is helped her neck. Not her shoulders Time: 20:50 Vital Signs Vital signs: Vital Signs - 8 hr 11/16/21 14:09 Temperature 97.8 F Pulse Rate 70 Respiratory Rate 14 Blood Pressure 186/79 H Pulse Oximetry 97 Oxygen Delivery Method Room Air MDM - Headache Differential Diagnosis Differential diagnosis: Likely migraine, tension headache, subarachnoid hemorrhage, headache and other (Cervical radiculopathy. Muscle spasm) Imaging Data CT scan - head: Radiologist's Impression: [address] [address] [address] Scan Report Signed Patient: Madyson Ladd MR#: [id number] : 1945 Acct:[id number] Age/Sex: 75 / F Date of Service: 11/16/21 Loc: ED Accession Number: [id number] ?? Procedure: CT head/brain wo con Ordering Provider: Sakina Costa D.O. PROCEDURE:? CT HEAD/BRAIN WO CON ? INDICATIONS:? head pain 3 weeks ? TECHNIQUE:? Noncontrast 4.5 mm thick angled axial sections acquired from the foramen magnum to the vertex, with coronal and sagittal reformats.? For radiation dose reduction, the following was used:? automated exposure control, adjustment of mA and/or kV according to patient size.? ? COMPARISON:? [facility], CT, HEAD WITH AND WITHOUT CONTRAST, 08/13/2011, 10:43.? [facility], MR, BRAIN WITH AND WITHOUT CONTRAS, 09/30/2011, 7:19. ? FINDINGS:? Image quality:? Excellent.? ? CSF spaces:? Basal cisterns are patent.? No extra-axial fluid collections.? The ventricles are symmetric in size and shape.? ? Brain:? No intracranial bleeds or masses.? There is cerebral volume loss for age, with resultant ventricular and sulcal prominence.? There are periventricular and deep white matter chronic small vessel ischemic changes.? There is intracranial internal carotid artery atherosclerosis.? ? Skull and face:? Calvarium and visualized facial bones appear intact, without suspicious lesions.? There is a benign, stable 2 cm osteoma seen along the lateral aspect of the Brian table of the left calvarium, as on series 3, image 19. ? Sinuses:? Visualized sinuses and mastoids are clear.? ? ? IMPRESSION:? Unremarkable intracranial study for age, without a cause head pain identified. ? Incidental note is made of: Left calvarial osteoma, stable ? Dictated by: Barrera Bay M.D. on 11/16/2021 at 15:04 ? ? Approved by: Barrera Bay M.D. on 11/16/2021 at 15:06 ? X-ray cervical spine: Radiologist's Impression: [address] [address] XRay Report Signed Patient: Madyson Ladd MR#: [id number] : 1945 Acct:[id number] Age/Sex: 75 / F Date of Service: 11/16/21 Loc: ED Accession Number: [id number] ?? Procedure: XR cervical spine 2V or 3V Ordering Provider: Yoni Sam MD PROCEDURE:? XR CERVICAL SPINE 2V OR 3V ? INDICATIONS:? Left neck pain ? TECHNIQUE:? 3 view(s) of the cervical spine were acquired.? ? COMPARISON:? None. ? FINDINGS:? ? Bones:? No fractures or dislocations to the C7 level.? The lateral masses of C1 appear intact on the odontoid view.? No suspicious bony lesions.? ? Soft tissues:? No prevertebral soft tissue swelling.? ? ? IMPRESSION:? No acute finding. ? ? Dictated by: Emilio Bowen M.D. on 11/16/2021 at 20:34 ? ? Approved by: Emilio Bowen M.D. on 11/16/2021 at 20:34 ? MDM Narrative Medical decision making narrative: Appropriate for discharge home. Exam and imaging reassuring. No black or indicated. No signs of meningitis or infectious process. Neurologically intact. Appropriate for outpatient MRI of the cervical spine and referral to Ortho Spine. Patient does have a primary care follow-up December 02. Return precautions reviewed with patient. Pain improved at time of discharge Discharge Plan Departure Patient Disposition: Home Clinical Impression: Cervical radiculopathy Instructions: DI for Neck Pain Activity Restrictions/Additional Instructions: See family doctor next week for re-evaluation or your scheduled time for appointment. No driving operating machine tonight or when taking prescribed muscle relaxer. May continue physical therapy if it is helping your neck muscle pain/spasm. Return if worse if any questions or concerns. You will need MRI of your cervical spine to be ordered by your family doctor. Prescription for baclofen has been sent to your [facility] pharmacy to be picked up tomorrow Prescriptions: New baclofen 10 mg tablet 10 mg PO TID Qty: 21 0RF No Action sertraline 50 mg tablet 50 mg PO QPM Qty: 90 3RF losartan 50 mg tablet 50 mg PO DAILY Qty: 90 3RF insulin degludec 100 unit/mL (3 mL) insulin pen 12 unit subcut QPM Qty: 15 3RF levothyroxine 125 mcg tablet 125 mcg PO DAILY Qty: 90 3RF metformin 500 mg tablet 1,000 mg PO BID Qty: 360 3RF rosuvastatin 20 mg tablet 20 mg PO DAILY Qty: 90 3RF acetaminophen [Tylenol Extra Strength] 500 mg tablet 500 mg PO TID aspirin 81 mg Tablet,Delayed Release (Dr/Ec) 81 mg PO DAILY ascorbic acid (vitamin C) [Vitamin C] 500 mg Tablet 500 mg PO DAILY cholecalciferol (vitamin D3) [Vitamin D3] 50 mcg (2,000 unit) Capsule 50 mcg PO DAILY gabapentin 100 mg capsule 500 mg PO DAILY Rx Instructions: 1 tablet at am, 1 tablet at pm, 3 tablet at bedtimes. Referrals: Karlos Avila MD [Primary Care Provider] - Visit Report Forms: Patient Portal/API
[2021-11-16] MEDS: HYDROMORPHONE 1 MG INJ IM (20:52)
[2021-11-16 21:03] VITALS: BP 159/70; PULSE 64; O2SAT 100
== END 2021-11-16 21:03 | disposition home or self-care (01) ==
PROVIDERS: Emergency Provider Emergency Medicine; Family Provider Internal Medicine; PCP Internal Medicine
DX: M54.12 Radiculopathy, cervical region (principal)
CPT/HCPCS: 70450; 72040; 96372; 99283; J1170; J1885

== ENCOUNTER → 2021-11-29 11:39 | Outpatient (CLI) | payer MEDICARE, OTHER, SELFPAY ==
[2021-11-29 13:05] LABS: BUN Creatinine Ratio 19.5 (6-22); Blood Urea Nitrogen 24 mg/dL (7-17); Calcium 9.5 mg/dL (8.4-10.2); Carbon Dioxide 26 mmol/L (22-32); Chloride 106 mmol/L (98-107); Estimated Glomerular Filt Rate 46 mL/min (>60); Glucose 117 mg/dL (80-110); HEMOLYSIS < 15 (0-50); Potassium 4.7 mmol/L (3.4-5.1); Sodium 139 mmol/L (137-145)
[2021-11-29 13:15] LABS: Hemoglobin A1C% w Est Avg Glu 6.9 % (4.0-6.0)
== END ==
PROVIDERS: Family Provider Internal Medicine; PCP Internal Medicine; Referring Provider Internal Medicine; Visit Provider Internal Medicine
DX: E11.42 Type 2 diabetes mellitus with diabetic polyneuropathy (principal)
CPT/HCPCS: 36415; 80048; 83036

== ENCOUNTER 2021-12-06 10:30 | Outpatient (RCR) | payer MEDICARE, OTHER, SELFPAY ==
--- NOTE | 2021-09-27 12:45 | PT.OIE ---
Current Diagnoses Other shoulder lesions, right shoulder (09/27/21) Other shoulder lesions, left shoulder (09/27/21) Past Medical History (Last Updated 08/28/21 @ 08:48 by Karlos Avila MD) Acquired hypothyroidism Chronic kidney disease, stage 3b Colon cancer Depression, recurrent DMII (diabetes mellitus, type 2) Essential hypertension History of blood clots History of colon cancer History of colon polyps HTN (hypertension) Hyperlipidemia Hypothyroidism Insulin dependent diabetes mellitus Mixed hyperlipidemia Polyneuropathy, unspecified Single kidney Tendonitis of both rotator cuffs Type 2 diabetes mellitus with polyneuropathy Past Surgical History (Last Reviewed 08/28/21 @ 07:55 by Karlos Avila MD) History of colonoscopy History of nephrectomy (~2006) S/P colon resection S/P total abdominal hysterectomy (~1977) Visit Care Team Role Provider Type Karlos Avila MD Attending Provider Physician Family Provider Primary Care Provider Referring Provider Specialty: Internal Medicine Address: [address] [place] [address] Email: [email or web address] Physical Therapy Initial Evaluation PT-OP-A Visit Information Start: 09/27/21 16:55 Freq: Status: Active Protocol: Document 09/27/21 12:00 DCW (Rec: 09/27/21 16:56 DCW [id number]) Out-Patient Physical Therapy Visit Information Visit Information Visit Type Initial Evaluation Visit Start Time 12:00 Visit Stop Time 12:40 Total Visit Minutes 40 Visit Number 1 Number of FLIGHT INSTRUCTOR Visits 0 Evaluation Information Evaluation Date 09/27/21 PT-OP-B Current Condition Start: 09/27/21 16:55 Freq: Status: Active Protocol: Document 09/27/21 12:00 DCW (Rec: 09/30/21 09:44 DC [id number]) Current Condition History of Current Condition Onset Date Long-standing history Current Complaints Bilateral shoulder pain, worse when sleeping or with overhead movement History of Current Condition Pt is a 75 year old female presenting with a long- standing history of bilateral shoulder pain. Pt reports that if she tried to lay on her side (which is her preferred sleeping position), she gets severe pain through her shoulder and down her arm. She feels specifically it goes down the dorsal side of her forearm, but she isn't quite sure. She is able to eliminate the pain by laying on her back and putting her arms outstretched down by her side. Pt also notes increased pain when reaching up to put dishes away or trying to get up and down while gardening. 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 Treatment Goals Patient/Caregiver Goals Improve sleeping ability, would like to returen to sleeping on either side pain- free PT-OP-C Subjective Start: 09/27/21 16:55 Freq: Status: Active Protocol: Document 09/27/21 12:00 DCW (Rec: 09/30/21 09:44 DCW [id number]) OP-PT Subjective Patient Comments Patient Comments It just really bothers my sleeping. Patient Questionnaires Quick Dash- Upper Extremity Quick Dash UE Score 25% Quick Dash UE Impairment 20 to 39% Impaired (Score 20- 39) OP-PT Pain Assessment Pain Assessment Grid Paper Pain Assessment Grid Completed Yes Location Bilateral Shoulder Intensity 4 Description Radiating,Sharp Radiating Location Radiates down lateral upper arm into dorsal forearm PT-OP-E Functional Tests Start: 09/27/21 16:55 Freq: Status: Active Protocol: Document 09/27/21 12:00 DCW (Rec: 09/30/21 09:53 DCW [id number]) Functional Tests Apley's Scratch Test Action 1- Left Anterior opposite shoulder Action 1- Right Anterior opposite shoulder Action 2- Left T2 Action 2- Right T2 Action 3- Left L3 Action 3- Right T11 PT-OP-F Manual Assessment Start: 09/27/21 16:55 Freq: Status: Active Protocol: Document 09/27/21 12:00 DCW (Rec: 09/30/21 17:53 DCW [id number]) Manual Assessments Soft Tissue Assessment Soft Tissue Mobility Assessment Moderate-severe tone and tenderness to palpation 3/4: Wincing and withdraw along bilateral pecs major, rhomboids, subscap, infraspinatus, upper trap, scalenes PT-OP-K Range of Motion Start: 09/27/21 16:55 Freq: Status: Active Protocol: Document 09/27/21 12:00 DCW (Rec: 09/30/21 17:53 [facility] [id number]) Shoulder Goniometric Range of Motion Shoulder Right Active Testing Position Sitting Flexion 130 Abduction 120 External Rotation at 0 degrees Abduction 80 Internal Rotation Behind Back (text) T2 Left Active Testing Position Sitting Flexion 130 Abduction 120 External Rotation at 0 degrees Abduction 80 Internal Rotation Behind Back (text) L3 Comments In flexion, pain begins at 90? , pt stops AROM at 130? PT-OP-L Special Tests Start: 09/27/21 16:55 Freq: Status: Active Protocol: Document 09/27/21 12:00 DCW (Rec: 09/30/21 17:53 [facility] [id number]) Special Tests Shoulder Special Tests Passive ER Rotator Cuff Test Results Negative Lift-Off Rotator Cuff Test Results Positive Bilaterally Mondragon Boo Impingement Test Results Positive L Empty Can Test Results Negative Drop Arm Rotator Cuff Test Results Negative Clunk Test Test Results Negative Belly Press Test Results Negative Apprehension Test Test Results Negative PT-OP-M Strength Start: 09/27/21 16:55 Freq: Status: Active Protocol: Document 09/27/21 12:00 DCW (Rec: 09/30/21 17:53 [facility] [id number]) Shoulder Strength Shoulder Manual Muscle Testing Right Flexion 4 Good Abduction (C5) 4 Good External Rotation 4+ Good+ Internal Rotation 4+ Good+ Left Flexion 4 Good Abduction (C5) 4 Good External Rotation 4+ Good+ Internal Rotation 4+ Good+ Comments Pain with resisted flexion Elbow/Forearm Strength Elbow and Forearm Manual Muscle Testing Right Flexion (C6) 4+ Good+ Extension (C7) 4+ Good+ Left Flexion (C6) 4+ Good+ Extension (C7) 4+ Good+ PT-OP-T Assessment and Plan Start: 09/27/21 16:55 Freq: Status: Active Protocol: Document 09/27/21 12:00 DCW (Rec: 09/30/21 17:53 [facility] [id number]) Physical Therapy Assessment Rehab Potential Rehabilitation Potential Good Evaluation Complexity Number of Personal Factors/Comorbidities 1-2 Number of Body Systems Impaired 1-2 Clinical Presentation at Evaluation Stable Goals Three Impairment Pt reports disturbed sleep due to shoulder pain Broadcast Operations Manager Goal (LTG) Pt to reports not waking up during the night due to pain for 80% of nights LTG Duration 11/27/21 Two Impairment Pt unable to put dishes away without increased shoulder pain Intermediate Goal (LTG) Pt to report ability to put dishes away without increased pain for one week straight LTG Duration 11/27/21 One Impairment Pt does not have an appropriate home exercise program Short Term Goal (STG) Pt to be independent and compliant with an appropriate HEP STG Duration 10/27/21 Assessment Summary Assessment Pt presents with signs and symptoms consistent with shoulder tendonitis and significant soft tissue tightness which can potentially be causing nerve entrapment. Pt tender to palpation around entire shoulder girdle bilaterally, but only shows some seemingly random positive special tests, with left Mondragon-Boo and bilateral lift-off being positive, all other special tests negative. Pt most limited with overhead activity and sleeping. Should benefit from skilled therapy focusing on gentle strengthening, STM, improved flexibility/ stretching, and decreased muscle tone. Physical Therapy Plan Frequency and Duration Frequency of Treatment 2x/Week Duration of Treatment Two months Plan of Care Start Date 09/30/21 Plan of Care End Date 11/30/21 Therapeutic Interventions Therapeutic Interventions Aquatic Therapy,Home Exercise Program,Joint Mobilizations, Manual Therapy,Patient/ Caregiver Education,Self-Care/ Home Management,Soft Tissue Mobilization,Therapeutic Activities,Therapeutic Exercises Modalities Cold Pack/Ice Massage,Electric Stimulation,Hot Packs, Ultrasound Next Visit Focus/Plan Next Note Type Treatment Note Next Visit Plan Stretching/flexibility, STM, Strengthening
--- NOTE | 2021-09-27 12:45 | PT.OPPOC ---
Physical, Occupational & Speech Therapy At [facility] Current Diagnoses Other shoulder lesions, right shoulder (09/27/21) Other shoulder lesions, left shoulder (09/27/21) Visit Care Team Role Provider Type Karlos Avila MD Attending Provider Physician Family Provider Primary Care Provider Referring Provider Specialty: Internal Medicine Address: [address] [place] [address], [facility] Email: [email or web address] Plan Of Care PT-OP-T Assessment and Plan Start: 09/27/21 16:55 Freq: Status: Active Protocol: Document 09/27/21 12:00 DCW (Rec: 09/30/21 17:53 DCW [id number]) Physical Therapy Assessment Rehab Potential Rehabilitation Potential Good Evaluation Complexity Number of Personal Factors/Comorbidities 1-2 Number of Body Systems Impaired 1-2 Clinical Presentation at Evaluation Stable Goals Three Impairment Pt reports disturbed sleep due to shoulder pain Aluminum Welder Goal (LTG) Pt to reports not waking up during the night due to pain for 80% of nights LTG Duration 11/27/21 Two Impairment Pt unable to put dishes away without increased shoulder pain Long-Term Goal (LTG) Pt to report ability to put dishes away without increased pain for one week straight LTG Duration 11/27/21 One Impairment Pt does not have an appropriate home exercise program Short Term Goal (STG) Pt to be independent and compliant with an appropriate HEP STG Duration 10/27/21 Assessment Summary Assessment Pt presents with signs and symptoms consistent with shoulder tendonitis and significant soft tissue tightness which can potentially be causing nerve entrapment. Pt tender to palpation around entire shoulder girdle bilaterally, but only shows some seemingly random positive special tests, with left Mondragon-Boo and bilateral lift-off being positive, all other special tests negative. Pt most limited with overhead activity and sleeping. Should benefit from skilled therapy focusing on gentle strengthening, STM, improved flexibility/ stretching, and decreased muscle tone. Physical Therapy Plan Frequency and Duration Frequency of Treatment 2x/Week Duration of Treatment Two months Plan of Care Start Date 09/30/21 Plan of Care End Date 11/30/21 Therapeutic Interventions Therapeutic Interventions Aquatic Therapy,Home Exercise Program,Joint Mobilizations, Manual Therapy,Patient/ Caregiver Education,Self-Care/ Home Management,Soft Tissue Mobilization,Therapeutic Activities,Therapeutic Exercises Modalities Cold Pack/Ice Massage,Electric Stimulation,Hot Packs, Ultrasound Next Visit Focus/Plan Next Note Type Treatment Note Next Visit Plan Stretching/flexibility, STM, Strengthening Plan of Care Dates Plan of Care Start Date 09/30/21 Plan of Care End Date 11/30/21 Electronically Signed by: Meño Bal, PT 09/30/21 [id number] If you are in agreement with this Plan of Care, please return a signed and dated copy. I have reviewed this Plan of Care and certify that the skilled therapy services above are required to meet the patient?s needs. Physician Signature Date Printed Name and Credentials Clinical Instructor Signature Printed Name and Credentials
--- NOTE | 2021-10-01 10:30 | PT.OTN ---
Current Diagnoses Other shoulder lesions, right shoulder (10/01/21) Other shoulder lesions, left shoulder (10/01/21) Physical Therapy Treatment Note PT-OP-A Visit Information Start: 09/27/21 16:55 Freq: Status: Active Protocol: Document 10/01/21 09:45 DCW (Rec: 10/01/21 10:30 DCW [id number]) Out-Patient Physical Therapy Visit Information Visit Information Visit Type Treatment Note Visit Start Time 09:45 Visit Stop Time 10:30 Total Visit Minutes 45 Visit Number 2 Number of SENIOR CLINICAL DATA ANALYST Visits 0 Evaluation Information Evaluation Date 09/27/21 PT-OP-B Current Condition Start: 09/27/21 16:55 Freq: Status: Active Protocol: Document 09/27/21 12:00 DCW (Rec: 09/30/21 09:44 DCW [id number]) Current Condition History of Current Condition Onset Date Long-standing history Current Complaints Bilateral shoulder pain, worse when sleeping or with overhead movement History of Current Condition Pt is a 75 year old female presenting with a long- standing history of bilateral shoulder pain. Pt reports that if she tried to lay on her side (which is her preferred sleeping position), she gets severe pain through her shoulder and down her arm. She feels specifically it goes down the dorsal side of her forearm, but she isn't quite sure. She is able to eliminate the pain by laying on her back and putting her arms outstretched down by her side. Pt also notes increased pain when reaching up to put dishes away or trying to get up and down while gardening. 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 Treatment Goals Patient/Caregiver Goals Improve sleeping ability, would like to returen to sleeping on either side pain- free PT-OP-C Subjective Start: 09/27/21 16:55 Freq: Status: Active Protocol: Document 10/01/21 09:45 DCW (Rec: 10/01/21 10:30 DCW [id number]) OP-PT Subjective Patient Comments Patient Comments Pt brings in her two canes and walking sticks from home, reports that when she uses them, it typically creates more shoulder pain, and she would like to learn how to better use them to limit shoulder pain. PT-OP-E Functional Tests Start: 09/27/21 16:55 Freq: Status: Active Protocol: Document 09/27/21 12:00 DCW (Rec: 09/30/21 09:53 DCW [id number]) Functional Tests Apley's Scratch Test Action 1- Left Anterior opposite shoulder Action 1- Right Anterior opposite shoulder Action 2- Left T2 Action 2- Right T2 Action 3- Left L3 Action 3- Right T11 PT-OP-F Manual Assessment Start: 09/27/21 16:55 Freq: Status: Active Protocol: Document 09/27/21 12:00 DCW (Rec: 09/30/21 17:53 DCW [id number]) Manual Assessments Soft Tissue Assessment Soft Tissue Mobility Assessment Moderate-severe tone and tenderness to palpation 3/4: Wincing and withdraw along bilateral pecs major, rhomboids, subscap, infraspinatus, upper trap, scalenes PT-OP-K Range of Motion Start: 09/27/21 16:55 Freq: Status: Active Protocol: Document 09/27/21 12:00 DCW (Rec: 09/30/21 17:53 DCW [id number]) Shoulder Goniometric Range of Motion Shoulder Right Active Testing Position Sitting Flexion 130 Abduction 120 External Rotation at 0 degrees Abduction 80 Internal Rotation Behind Back (text) T2 Left Active Testing Position Sitting Flexion 130 Abduction 120 External Rotation at 0 degrees Abduction 80 Internal Rotation Behind Back (text) L3 Comments In flexion, pain begins at 90? , pt stops AROM at 130? PT-OP-L Special Tests Start: 09/27/21 16:55 Freq: Status: Active Protocol: Document 09/27/21 12:00 DCW (Rec: 09/30/21 17:53 DCW [id number]) Special Tests Shoulder Special Tests Passive ER Rotator Cuff Test Results Negative Lift-Off Rotator Cuff Test Results Positive Bilaterally Mondragon Boo Impingement Test Results Positive L Empty Can Test Results Negative Drop Arm Rotator Cuff Test Results Negative Clunk Test Test Results Negative Belly Press Test Results Negative Apprehension Test Test Results Negative PT-OP-M Strength Start: 09/27/21 16:55 Freq: Status: Active Protocol: Document 09/27/21 12:00 DCW (Rec: 09/30/21 17:53 DCW [id number]) Shoulder Strength Shoulder Manual Muscle Testing Right Flexion 4 Good Abduction (C5) 4 Good External Rotation 4+ Good+ Internal Rotation 4+ Good+ Left Flexion 4 Good Abduction (C5) 4 Good External Rotation 4+ Good+ Internal Rotation 4+ Good+ Comments Pain with resisted flexion Elbow/Forearm Strength Elbow and Forearm Manual Muscle Testing Right Flexion (C6) 4+ Good+ Extension (C7) 4+ Good+ Left Flexion (C6) 4+ Good+ Extension (C7) 4+ Good+ PT-OP-Q Treatments Start: 09/27/21 16:55 Freq: Status: Active Protocol: Document 10/01/21 09:45 DCW (Rec: 10/01/21 10:30 DCW [id number]) Cardio Equipment Upper Body Ergometer (UBE) Duration (Minutes) 4 RPM 60 Seat Position 10 Height 2.5 Therapeutic Exercises Standing Exercises Pec stretch Standing Exercise Name Corner pec stretch Shrugs Standing Exercise Name Shoulder shrugs Side bilateral Resistance 2# ER Standing Exercise Name ER Side bilateral Resistance Lv 1 Rows Standing Exercise Name Rows Side bilateral Resistance Lv 1 Extension Standing Exercise Name Shoulder extension Side bilateral Resistance Lv 1 Gait Training Gait Activity 1 Description Gait training with 2 trekking poles and cane Level of Assistance Verbal cues Treatment Focus Sequencing, gait speed, step length, cane/pole height adjustment Manual Therapy Treatment Soft Tissue Mobilization Rhomboids Mobilization Type Sustained Pressure,Trigger Point Release Body Position Supine Scalenes Mobilization Type Sustained Pressure,Trigger Point Release Body Position Supine Upper Trap Mobilization Type Sustained Pressure,Trigger Point Release Body Position Supine Joint Mobilizations Glenohumeral Joint B GH Mobs Direction Inferior Grade III Body Position Supine Scapulothoracic Joint B ST Mobs Direction Lateral Grade III Body Position Supine PT-OP-T Assessment and Plan Start: 09/27/21 16:55 Freq: Status: Active Protocol: Document 10/01/21 09:45 DCW (Rec: 10/01/21 10:30 DCW [id number]) Physical Therapy Assessment Goals Three Impairment Pt reports disturbed sleep due to shoulder pain Alf Goal (LTG) Pt to reports not waking up during the night due to pain for 80% of nights LTG Duration 11/27/21 Two Impairment Pt unable to put dishes away without increased shoulder pain Canceling And Cutting Control Clerk Goal (LTG) Pt to report ability to put dishes away without increased pain for one week straight LTG Duration 11/27/21 One Impairment Pt does not have an appropriate home exercise program Short Term Goal (STG) Pt to be independent and compliant with an appropriate HEP STG Duration 10/27/21 Assessment Summary Assessment Pt tolerated treatment very well. Had some struggle with sequencing of trekking poles, required multiple corrections, able to perform correctly ~80 % of her steps by end of training. Continues to display increased tone throughout neck and shoulder girdle. Physical Therapy Plan Frequency and Duration Frequency of Treatment 2x/Week Duration of Treatment Two months Plan of Care Start Date 09/30/21 Plan of Care End Date 11/30/21 Therapeutic Interventions Therapeutic Interventions Aquatic Therapy,Home Exercise Program,Joint Mobilizations, Manual Therapy,Patient/ Caregiver Education,Self-Care/ Home Management,Soft Tissue Mobilization,Therapeutic Activities,Therapeutic Exercises Modalities Cold Pack/Ice Massage,Electric Stimulation,Hot Packs, Ultrasound Next Visit Focus/Plan Next Note Type Treatment Note Next Visit Plan Stretching/flexibility, STM, Strengthening
--- NOTE | 2021-10-15 16:02 | PT.OTN ---
Current Diagnoses Other shoulder lesions, right shoulder (10/15/21) Other shoulder lesions, left shoulder (10/15/21) Physical Therapy Treatment Note PT-OP-A Visit Information Start: 09/27/21 16:55 Freq: Status: Active Protocol: Document 10/15/21 15:15 DCW (Rec: 10/15/21 16:02 DCW [id number]) Out-Patient Physical Therapy Visit Information Visit Information Visit Type Treatment Note Visit Start Time 15:15 Visit Stop Time 16:00 Total Visit Minutes 45 Visit Number 3 Number of AUTO DAMAGE TRAINEE Visits 0 Evaluation Information Evaluation Date 09/27/21 PT-OP-B Current Condition Start: 09/27/21 16:55 Freq: Status: Active Protocol: Document 09/27/21 12:00 DCW (Rec: 09/30/21 09:44 DCW [id number]) Current Condition History of Current Condition Onset Date Long-standing history Current Complaints Bilateral shoulder pain, worse when sleeping or with overhead movement History of Current Condition Pt is a 75 year old female presenting with a long- standing history of bilateral shoulder pain. Pt reports that if she tried to lay on her side (which is her preferred sleeping position), she gets severe pain through her shoulder and down her arm. She feels specifically it goes down the dorsal side of her forearm, but she isn't quite sure. She is able to eliminate the pain by laying on her back and putting her arms outstretched down by her side. Pt also notes increased pain when reaching up to put dishes away or trying to get up and down while gardening. 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 Treatment Goals Patient/Caregiver Goals Improve sleeping ability, would like to returen to sleeping on either side pain- free PT-OP-C Subjective Start: 09/27/21 16:55 Freq: Status: Active Protocol: Document 10/15/21 15:15 DCW (Rec: 10/15/21 16:02 DCW [id number]) OP-PT Subjective Patient Comments Patient Comments My arms are still hurting, but now I have an awful pain in my neck. Notes she was visiting her daughter in [place] and slept on a sofa for a week. PT-OP-E Functional Tests Start: 09/27/21 16:55 Freq: Status: Active Protocol: Document 09/27/21 12:00 DCW (Rec: 09/30/21 09:53 DCW [id number]) Functional Tests Apley's Scratch Test Action 1- Left Anterior opposite shoulder Action 1- Right Anterior opposite shoulder Action 2- Left T2 Action 2- Right T2 Action 3- Left L3 Action 3- Right T11 PT-OP-F Manual Assessment Start: 09/27/21 16:55 Freq: Status: Active Protocol: Document 09/27/21 12:00 DCW (Rec: 09/30/21 17:53 DCW [id number]) Manual Assessments Soft Tissue Assessment Soft Tissue Mobility Assessment Moderate-severe tone and tenderness to palpation 3/4: Wincing and withdraw along bilateral pecs major, rhomboids, subscap, infraspinatus, upper trap, scalenes PT-OP-K Range of Motion Start: 09/27/21 16:55 Freq: Status: Active Protocol: Document 09/27/21 12:00 DCW (Rec: 09/30/21 17:53 DCW [id number]) Shoulder Goniometric Range of Motion Shoulder Right Active Testing Position Sitting Flexion 130 Abduction 120 External Rotation at 0 degrees Abduction 80 Internal Rotation Behind Back (text) T2 Left Active Testing Position Sitting Flexion 130 Abduction 120 External Rotation at 0 degrees Abduction 80 Internal Rotation Behind Back (text) L3 Comments In flexion, pain begins at 90? , pt stops AROM at 130? PT-OP-L Special Tests Start: 09/27/21 16:55 Freq: Status: Active Protocol: Document 09/27/21 12:00 DCW (Rec: 09/30/21 17:53 DCW [id number]) Special Tests Shoulder Special Tests Passive ER Rotator Cuff Test Results Negative Lift-Off Rotator Cuff Test Results Positive Bilaterally Mondragon Boo Impingement Test Results Positive L Empty Can Test Results Negative Drop Arm Rotator Cuff Test Results Negative Clunk Test Test Results Negative Belly Press Test Results Negative Apprehension Test Test Results Negative PT-OP-M Strength Start: 09/27/21 16:55 Freq: Status: Active Protocol: Document 09/27/21 12:00 DCW (Rec: 09/30/21 17:53 DCW [id number]) Shoulder Strength Shoulder Manual Muscle Testing Right Flexion 4 Good Abduction (C5) 4 Good External Rotation 4+ Good+ Internal Rotation 4+ Good+ Left Flexion 4 Good Abduction (C5) 4 Good External Rotation 4+ Good+ Internal Rotation 4+ Good+ Comments Pain with resisted flexion Elbow/Forearm Strength Elbow and Forearm Manual Muscle Testing Right Flexion (C6) 4+ Good+ Extension (C7) 4+ Good+ Left Flexion (C6) 4+ Good+ Extension (C7) 4+ Good+ PT-OP-Q Treatments Start: 09/27/21 16:55 Freq: Status: Active Protocol: Document 10/15/21 15:15 DCW (Rec: 10/15/21 16:02 [facility] [id number]) Cardio Equipment Upper Body Ergometer (UBE) Duration (Minutes) 5 RPM 60 Seat Position 10 Height 2.5 Therapeutic Exercises Sitting Exercises Upper Trap stretch Sitting Exercise Name UT stretch Side bilateral Standing Exercises Shrugs Standing Exercise Name Shoulder shrugs Side bilateral Resistance 2# ER Standing Exercise Name ER Side bilateral Resistance Lv 2 Rows Standing Exercise Name Rows Side bilateral Resistance Lv 2 Extension Standing Exercise Name Shoulder extension Side bilateral Resistance Lv 2 Manual Therapy Treatment Soft Tissue Mobilization Rhomboids Mobilization Type Sustained Pressure,Trigger Point Release Body Position Supine Scalenes Mobilization Type Sustained Pressure,Trigger Point Release Body Position Supine Upper Trap Mobilization Type Sustained Pressure,Trigger Point Release Body Position Supine Joint Mobilizations Glenohumeral Joint B GH Mobs Direction Inferior Grade III Body Position Supine Scapulothoracic Joint B ST Mobs Direction Lateral Grade III Body Position Supine PT-OP-T Assessment and Plan Start: 09/27/21 16:55 Freq: Status: Active Protocol: Document 10/15/21 15:15 DCW (Rec: 10/15/21 16:02 [facility] [id number]) Physical Therapy Assessment Goals Three Impairment Pt reports disturbed sleep due to shoulder pain Snf Goal (LTG) Pt to reports not waking up during the night due to pain for 80% of nights LTG Duration 11/27/21 Two Impairment Pt unable to put dishes away without increased shoulder pain Snf Goal (LTG) Pt to report ability to put dishes away without increased pain for one week straight LTG Duration 11/27/21 One Impairment Pt does not have an appropriate home exercise program Short Term Goal (STG) Pt to be independent and compliant with an appropriate HEP STG Duration 10/27/21 Assessment Summary Assessment Increased UT tone today, rotation causing increased discomfort. Tolerated treatment well, notes she will have to cancel next weeks appointments due to family emergency in [place] Physical Therapy Plan Frequency and Duration Frequency of Treatment 2x/Week Duration of Treatment Two months Plan of Care Start Date 09/30/21 Plan of Care End Date 11/30/21 Therapeutic Interventions Therapeutic Interventions Aquatic Therapy,Home Exercise Program,Joint Mobilizations, Manual Therapy,Patient/ Caregiver Education,Self-Care/ Home Management,Soft Tissue Mobilization,Therapeutic Activities,Therapeutic Exercises Modalities Cold Pack/Ice Massage,Electric Stimulation,Hot Packs, Ultrasound Next Visit Focus/Plan Next Note Type Treatment Note Next Visit Plan Stretching/flexibility, STM, Strengthening
--- NOTE | 2021-10-18 10:30 | PT.OTN ---
Current Diagnoses Other shoulder lesions, right shoulder (10/18/21) Other shoulder lesions, left shoulder (10/18/21) Physical Therapy Treatment Note PT-OP-A Visit Information Start: 09/27/21 16:55 Freq: Status: Active Protocol: Document 10/18/21 09:45 DCW (Rec: 10/18/21 10:29 DCW [id number]) Out-Patient Physical Therapy Visit Information Visit Information Visit Type Treatment Note Visit Start Time 09:45 Visit Stop Time 10:30 Total Visit Minutes 45 Visit Number 3 Number of PLUMBING CONTRACTOR Visits 0 Evaluation Information Evaluation Date 09/27/21 PT-OP-B Current Condition Start: 09/27/21 16:55 Freq: Status: Active Protocol: Document 09/27/21 12:00 DCW (Rec: 09/30/21 09:44 DCW [id number]) Current Condition History of Current Condition Onset Date Long-standing history Current Complaints Bilateral shoulder pain, worse when sleeping or with overhead movement History of Current Condition Pt is a 75 year old female presenting with a long- standing history of bilateral shoulder pain. Pt reports that if she tried to lay on her side (which is her preferred sleeping position), she gets severe pain through her shoulder and down her arm. She feels specifically it goes down the dorsal side of her forearm, but she isn't quite sure. She is able to eliminate the pain by laying on her back and putting her arms outstretched down by her side. Pt also notes increased pain when reaching up to put dishes away or trying to get up and down while gardening. 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 Treatment Goals Patient/Caregiver Goals Improve sleeping ability, would like to returen to sleeping on either side pain- free PT-OP-C Subjective Start: 09/27/21 16:55 Freq: Status: Active Protocol: Document 10/18/21 09:45 DCW (Rec: 10/18/21 10:29 DCW [id number]) OP-PT Subjective Patient Comments Patient Comments My neck is killing me. PT-OP-E Functional Tests Start: 06/10/22 16:55 Freq: Status: Active Protocol: Document 09/27/21 12:00 DCW (Rec: 09/30/21 09:53 DCW [id number]) Functional Tests Apley's Scratch Test Action 1- Left Anterior opposite shoulder Action 1- Right Anterior opposite shoulder Action 2- Left T2 Action 2- Right T2 Action 3- Left L3 Action 3- Right T11 PT-OP-F Manual Assessment Start: 09/27/21 16:55 Freq: Status: Active Protocol: Document 09/27/21 12:00 DCW (Rec: 09/30/21 17:53 DCW [id number]) Manual Assessments Soft Tissue Assessment Soft Tissue Mobility Assessment Moderate-severe tone and tenderness to palpation 3/4: Wincing and withdraw along bilateral pecs major, rhomboids, subscap, infraspinatus, upper trap, scalenes PT-OP-K Range of Motion Start: 09/27/21 16:55 Freq: Status: Active Protocol: Document 09/27/21 12:00 DCW (Rec: 09/30/21 17:53 DCW [id number]) Shoulder Goniometric Range of Motion Shoulder Right Active Testing Position Sitting Flexion 130 Abduction 120 External Rotation at 0 degrees Abduction 80 Internal Rotation Behind Back (text) T2 Left Active Testing Position Sitting Flexion 130 Abduction 120 External Rotation at 0 degrees Abduction 80 Internal Rotation Behind Back (text) L3 Comments In flexion, pain begins at 90? , pt stops AROM at 130? PT-OP-L Special Tests Start: 09/27/21 16:55 Freq: Status: Active Protocol: Document 09/27/21 12:00 DCW (Rec: 09/30/21 17:53 DCW [id number]) Special Tests Shoulder Special Tests Passive ER Rotator Cuff Test Results Negative Lift-Off Rotator Cuff Test Results Positive Bilaterally Mondragon Boo Impingement Test Results Positive L Empty Can Test Results Negative Drop Arm Rotator Cuff Test Results Negative Clunk Test Test Results Negative Belly Press Test Results Negative Apprehension Test Test Results Negative PT-OP-M Strength Start: 09/27/21 16:55 Freq: Status: Active Protocol: Document 09/27/21 12:00 DCW (Rec: 09/30/21 17:53 DCW [id number]) Shoulder Strength Shoulder Manual Muscle Testing Right Flexion 4 Good Abduction (C5) 4 Good External Rotation 4+ Good+ Internal Rotation 4+ Good+ Left Flexion 4 Good Abduction (C5) 4 Good External Rotation 4+ Good+ Internal Rotation 4+ Good+ Comments Pain with resisted flexion Elbow/Forearm Strength Elbow and Forearm Manual Muscle Testing Right Flexion (C6) 4+ Good+ Extension (C7) 4+ Good+ Left Flexion (C6) 4+ Good+ Extension (C7) 4+ Good+ PT-OP-Q Treatments Start: 09/27/21 16:55 Freq: Status: Active Protocol: Document 10/18/21 09:45 DCW (Rec: 10/18/21 10:29 DCW [id number]) Cardio Equipment Upper Body Ergometer (UBE) Duration (Minutes) 5 RPM 60 Seat Position 10 Height 3.5 Therapeutic Exercises Sitting Exercises Upper Trap stretch Sitting Exercise Name UT stretch Side bilateral Manual Therapy Treatment Soft Tissue Mobilization Rhomboids Mobilization Type Sustained Pressure,Trigger Point Release Body Position Supine Scalenes Mobilization Type Sustained Pressure,Trigger Point Release Body Position Supine Upper Trap Mobilization Type Sustained Pressure,Trigger Point Release Body Position Supine Joint Mobilizations Glenohumeral Joint B GH Mobs Direction Inferior Grade III Body Position Supine Scapulothoracic Joint B ST Mobs Direction Lateral Grade III Body Position Supine PT-OP-T Assessment and Plan Start: 09/27/21 16:55 Freq: Status: Active Protocol: Document 10/18/21 09:45 DCW (Rec: 10/18/21 10:29 DCW [id number]) Physical Therapy Assessment Goals Three Impairment Pt reports disturbed sleep due to shoulder pain Prison Goal (LTG) Pt to reports not waking up during the night due to pain for 80% of nights LTG Duration 11/27/21 Two Impairment Pt unable to put dishes away without increased shoulder pain Net Wpf Developer Goal (LTG) Pt to report ability to put dishes away without increased pain for one week straight LTG Duration 11/27/21 One Impairment Pt does not have an appropriate home exercise program Short Term Goal (STG) Pt to be independent and compliant with an appropriate HEP STG Duration 10/27/21 Assessment Summary Assessment Pt reporting significant pain with attempting to perform UT stretch for HEP, appears to be consistent with impingement pain with lifting arm. Discussed different positioning to perform stretch without lifting shoulder higher than 90? Physical Therapy Plan Frequency and Duration Frequency of Treatment 2x/Week Duration of Treatment Two months Plan of Care Start Date 09/30/21 Plan of Care End Date 11/30/21 Therapeutic Interventions Therapeutic Interventions Aquatic Therapy,Home Exercise Program,Joint Mobilizations, Manual Therapy,Patient/ Caregiver Education,Self-Care/ Home Management,Soft Tissue Mobilization,Therapeutic Activities,Therapeutic Exercises Modalities Cold Pack/Ice Massage,Electric Stimulation,Hot Packs, Ultrasound Next Visit Focus/Plan Next Note Type Treatment Note Next Visit Plan Stretching/flexibility, STM, Strengthening
--- NOTE | 2021-10-25 16:00 | PT.OTN ---
Current Diagnoses Other shoulder lesions, right shoulder (10/25/21) Other shoulder lesions, left shoulder (10/25/21) Physical Therapy Treatment Note PT-OP-A Visit Information Start: 09/27/21 16:55 Freq: Status: Active Protocol: Document 10/25/21 15:15 DCW (Rec: 10/25/21 16:00 DCW [id number]) Out-Patient Physical Therapy Visit Information Visit Information Visit Type Treatment Note Visit Start Time 15:15 Visit Stop Time 16:00 Total Visit Minutes 45 Visit Number 5 Number of OFFICE SUPPORT SPECIALIST Visits 0 Evaluation Information Evaluation Date 09/27/21 PT-OP-B Current Condition Start: 09/27/21 16:55 Freq: Status: Active Protocol: Document 09/27/21 12:00 DCW (Rec: 09/30/21 09:44 DCW [id number]) Current Condition History of Current Condition Onset Date Long-standing history Current Complaints Bilateral shoulder pain, worse when sleeping or with overhead movement History of Current Condition Pt is a 75 year old female presenting with a long- standing history of bilateral shoulder pain. Pt reports that if she tried to lay on her side (which is her preferred sleeping position), she gets severe pain through her shoulder and down her arm. She feels specifically it goes down the dorsal side of her forearm, but she isn't quite sure. She is able to eliminate the pain by laying on her back and putting her arms outstretched down by her side. Pt also notes increased pain when reaching up to put dishes away or trying to get up and down while gardening. 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 Treatment Goals Patient/Caregiver Goals Improve sleeping ability, would like to returen to sleeping on either side pain- free PT-OP-C Subjective Start: 09/27/21 16:55 Freq: Status: Active Protocol: Document 10/25/21 15:15 DCW (Rec: 10/25/21 16:00 DCW [id number]) OP-PT Subjective Patient Comments Patient Comments Notes her neck is just a little stiff going to the left , reports she worked really hard while in [place], helped her daughter fill a very large garden bed, and still did not have any associated pain in her neck and shoulders. PT-OP-E Functional Tests Start: 09/27/21 16:55 Freq: Status: Active Protocol: Document 09/27/21 12:00 DCW (Rec: 09/30/21 09:53 DCW [id number]) Functional Tests Apley's Scratch Test Action 1- Left Anterior opposite shoulder Action 1- Right Anterior opposite shoulder Action 2- Left T2 Action 2- Right T2 Action 3- Left L3 Action 3- Right T11 PT-OP-F Manual Assessment Start: 09/27/21 16:55 Freq: Status: Active Protocol: Document 09/27/21 12:00 DCW (Rec: 09/30/21 17:53 DCW [id number]) Manual Assessments Soft Tissue Assessment Soft Tissue Mobility Assessment Moderate-severe tone and tenderness to palpation 3/4: Wincing and withdraw along bilateral pecs major, rhomboids, subscap, infraspinatus, upper trap, scalenes PT-OP-K Range of Motion Start: 09/27/21 16:55 Freq: Status: Active Protocol: Document 09/27/21 12:00 DCW (Rec: 09/30/21 17:53 DCW [id number]) Shoulder Goniometric Range of Motion Shoulder Right Active Testing Position Sitting Flexion 130 Abduction 120 External Rotation at 0 degrees Abduction 80 Internal Rotation Behind Back (text) T2 Left Active Testing Position Sitting Flexion 130 Abduction 120 External Rotation at 0 degrees Abduction 80 Internal Rotation Behind Back (text) L3 Comments In flexion, pain begins at 90? , pt stops AROM at 130? PT-OP-L Special Tests Start: 09/27/21 16:55 Freq: Status: Active Protocol: Document 09/27/21 12:00 DCW (Rec: 09/30/21 17:53 DCW [id number]) Special Tests Shoulder Special Tests Passive ER Rotator Cuff Test Results Negative Lift-Off Rotator Cuff Test Results Positive Bilaterally Mondragon Boo Impingement Test Results Positive L Empty Can Test Results Negative Drop Arm Rotator Cuff Test Results Negative Clunk Test Test Results Negative Belly Press Test Results Negative Apprehension Test Test Results Negative PT-OP-M Strength Start: 09/27/21 16:55 Freq: Status: Active Protocol: Document 09/27/21 12:00 DCW (Rec: 09/30/21 17:53 [facility] [id number]) Shoulder Strength Shoulder Manual Muscle Testing Right Flexion 4 Good Abduction (C5) 4 Good External Rotation 4+ Good+ Internal Rotation 4+ Good+ Left Flexion 4 Good Abduction (C5) 4 Good External Rotation 4+ Good+ Internal Rotation 4+ Good+ Comments Pain with resisted flexion Elbow/Forearm Strength Elbow and Forearm Manual Muscle Testing Right Flexion (C6) 4+ Good+ Extension (C7) 4+ Good+ Left Flexion (C6) 4+ Good+ Extension (C7) 4+ Good+ PT-OP-Q Treatments Start: 09/27/21 16:55 Freq: Status: Active Protocol: Document 10/25/21 15:15 DCW (Rec: 10/25/21 16:00 [facility] [id number]) Cardio Equipment Upper Body Ergometer (UBE) Duration (Minutes) 5 RPM 60 Seat Position 10 Height 3.5 Therapeutic Exercises Supine Exercises Flys Supine Exercise Name Supine Flys Side bilateral Resistance 2# Serratus punch Supine Exercise Name Serratus punch Side bilateral Resistance 2# Standing Exercises Abduction Standing Exercise Name Shoulder Abduction Side bilateral Resistance 2# Flexion Standing Exercise Name Shoulder Flexion Side bilateral Resistance 2# Shoulder press Standing Exercise Name Shoulder press Side bilateral Resistance 2# Manual Therapy Treatment Soft Tissue Mobilization Rhomboids Mobilization Type Sustained Pressure,Trigger Point Release Body Position Supine Scalenes Mobilization Type Sustained Pressure,Trigger Point Release Body Position Supine Upper Trap Mobilization Type Sustained Pressure,Trigger Point Release Body Position Supine Joint Mobilizations Glenohumeral Joint B GH Mobs Direction Inferior Grade III Body Position Supine Scapulothoracic Joint B ST Mobs Direction Lateral Grade III Body Position Supine PT-OP-T Assessment and Plan Start: 09/27/21 16:55 Freq: Status: Active Protocol: Document 10/25/21 15:15 DCW (Rec: 10/25/21 16:00 [facility] [id number]) Physical Therapy Assessment Goals Three Impairment Pt reports disturbed sleep due to shoulder pain Zipper Joiner Goal (LTG) Pt to reports not waking up during the night due to pain for 80% of nights LTG Duration 11/27/21 Two Impairment Pt unable to put dishes away without increased shoulder pain Zipper Joiner Goal (LTG) Pt to report ability to put dishes away without increased pain for one week straight LTG Duration 11/27/21 One Impairment Pt does not have an appropriate home exercise program Short Term Goal (STG) Pt to be independent and compliant with an appropriate HEP STG Duration 10/27/21 Assessment Summary Assessment Pt tolerated treatment well today, happy she is able to tolerate fairly significant work load shoveling dirt while on vacation. Noticeable decrease in general soft tissue tone along bilateral upper trap, good mobility of bilateral scapula. Physical Therapy Plan Frequency and Duration Frequency of Treatment 2x/Week Duration of Treatment Two months Plan of Care Start Date 09/30/21 Plan of Care End Date 11/30/21 Therapeutic Interventions Therapeutic Interventions Aquatic Therapy,Home Exercise Program,Joint Mobilizations, Manual Therapy,Patient/ Caregiver Education,Self-Care/ Home Management,Soft Tissue Mobilization,Therapeutic Activities,Therapeutic Exercises Modalities Cold Pack/Ice Massage,Electric Stimulation,Hot Packs, Ultrasound Next Visit Focus/Plan Next Note Type Treatment Note Next Visit Plan Stretching/flexibility, STM, Strengthening
--- NOTE | 2021-10-29 11:16 | PT.OTN ---
Current Diagnoses Other shoulder lesions, right shoulder (10/29/21) Other shoulder lesions, left shoulder (10/29/21) Physical Therapy Treatment Note PT-OP-A Visit Information Start: 09/27/21 16:55 Freq: Status: Active Protocol: Document 10/29/21 10:30 DCW (Rec: 10/29/21 11:15 DCW [id number]) Out-Patient Physical Therapy Visit Information Visit Information Visit Type Treatment Note Visit Start Time 10:30 Visit Stop Time 11:15 Total Visit Minutes 45 Visit Number 6 Number of GOVERNMENT PROFESSOR Visits 0 Evaluation Information Evaluation Date 09/27/21 PT-OP-B Current Condition Start: 09/27/21 16:55 Freq: Status: Active Protocol: Document 09/27/21 12:00 DCW (Rec: 09/30/21 09:44 DCW [id number]) Current Condition History of Current Condition Onset Date Long-standing history Current Complaints Bilateral shoulder pain, worse when sleeping or with overhead movement History of Current Condition Pt is a 75 year old female presenting with a long- standing history of bilateral shoulder pain. Pt reports that if she tried to lay on her side (which is her preferred sleeping position), she gets severe pain through her shoulder and down her arm. She feels specifically it goes down the dorsal side of her forearm, but she isn't quite sure. She is able to eliminate the pain by laying on her back and putting her arms outstretched down by her side. Pt also notes increased pain when reaching up to put dishes away or trying to get up and down while gardening. 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 Treatment Goals Patient/Caregiver Goals Improve sleeping ability, would like to returen to sleeping on either side pain- free PT-OP-C Subjective Start: 09/27/21 16:55 Freq: Status: Active Protocol: Document 10/29/21 10:30 DCW (Rec: 10/29/21 11:15 DCW [id number]) OP-PT Subjective Patient Comments Patient Comments My neck has been bothering me , and my upper arm is sore, but it comes and goes. PT-OP-E Functional Tests Start: 09/27/21 16:55 Freq: Status: Active Protocol: Document 09/27/21 12:00 DCW (Rec: 09/30/21 09:53 DCW [id number]) Functional Tests Apley's Scratch Test Action 1- Left Anterior opposite shoulder Action 1- Right Anterior opposite shoulder Action 2- Left T2 Action 2- Right T2 Action 3- Left L3 Action 3- Right T11 PT-OP-F Manual Assessment Start: 09/27/21 16:55 Freq: Status: Active Protocol: Document 09/27/21 12:00 DCW (Rec: 09/30/21 17:53 SDW [id number]) Manual Assessments Soft Tissue Assessment Soft Tissue Mobility Assessment Moderate-severe tone and tenderness to palpation 3/4: Wincing and withdraw along bilateral pecs major, rhomboids, subscap, infraspinatus, upper trap, scalenes PT-OP-K Range of Motion Start: 09/27/21 16:55 Freq: Status: Active Protocol: Document 09/27/21 12:00 DCW (Rec: 09/30/21 17:53 SDW [id number]) Shoulder Goniometric Range of Motion Shoulder Right Active Testing Position Sitting Flexion 130 Abduction 120 External Rotation at 0 degrees Abduction 80 Internal Rotation Behind Back (text) T2 Left Active Testing Position Sitting Flexion 130 Abduction 120 External Rotation at 0 degrees Abduction 80 Internal Rotation Behind Back (text) L3 Comments In flexion, pain begins at 90? , pt stops AROM at 130? PT-OP-L Special Tests Start: 09/27/21 16:55 Freq: Status: Active Protocol: Document 09/27/21 12:00 DCW (Rec: 09/30/21 17:53 SDW [id number]) Special Tests Shoulder Special Tests Passive ER Rotator Cuff Test Results Negative Lift-Off Rotator Cuff Test Results Positive Bilaterally Mondragon Boo Impingement Test Results Positive L Empty Can Test Results Negative Drop Arm Rotator Cuff Test Results Negative Clunk Test Test Results Negative Belly Press Test Results Negative Apprehension Test Test Results Negative PT-OP-M Strength Start: 09/27/21 16:55 Freq: Status: Active Protocol: Document 09/27/21 12:00 DCW (Rec: 09/30/21 17:53 SDW [id number]) Shoulder Strength Shoulder Manual Muscle Testing Right Flexion 4 Good Abduction (C5) 4 Good External Rotation 4+ Good+ Internal Rotation 4+ Good+ Left Flexion 4 Good Abduction (C5) 4 Good External Rotation 4+ Good+ Internal Rotation 4+ Good+ Comments Pain with resisted flexion Elbow/Forearm Strength Elbow and Forearm Manual Muscle Testing Right Flexion (C6) 4+ Good+ Extension (C7) 4+ Good+ Left Flexion (C6) 4+ Good+ Extension (C7) 4+ Good+ PT-OP-Q Treatments Start: 09/27/21 16:55 Freq: Status: Active Protocol: Document 10/29/21 10:30 DCW (Rec: 10/29/21 11:15 DCW [id number]) Cardio Equipment Upper Body Ergometer (UBE) Duration (Minutes) 5 RPM 60 Seat Position 10 Height 4 Therapeutic Exercises Supine Exercises Flys Supine Exercise Name Supine Flys Side bilateral Resistance 2# Serratus punch Supine Exercise Name Serratus punch Side bilateral Resistance 2# Standing Exercises PNF D1/D2 Flexion Standing Exercise Name D1/D2 Side bilateral Resistance 2# Abduction Standing Exercise Name Shoulder Abduction Side bilateral Resistance 2# Flexion Standing Exercise Name Shoulder Flexion Side bilateral Resistance 2# Shoulder press Standing Exercise Name Shoulder press Side bilateral Resistance 2# Rows Standing Exercise Name Rows Side bilateral Resistance Lv 2 Extension Standing Exercise Name Shoulder extension Side bilateral Resistance Lv 2 Manual Therapy Treatment Soft Tissue Mobilization Rhomboids Mobilization Type Sustained Pressure,Trigger Point Release Body Position Supine Scalenes Mobilization Type Sustained Pressure,Trigger Point Release Body Position Supine Upper Trap Mobilization Type Sustained Pressure,Trigger Point Release Body Position Supine PT-OP-T Assessment and Plan Start: 09/27/21 16:55 Freq: Status: Active Protocol: Document 10/29/21 10:30 DCW (Rec: 10/29/21 11:15 DCW [id number]) Physical Therapy Assessment Goals Three Impairment Pt reports disturbed sleep due to shoulder pain Bar Steward Goal (LTG) Pt to reports not waking up during the night due to pain for 80% of nights LTG Duration 11/27/21 Two Impairment Pt unable to put dishes away without increased shoulder pain Bar Steward Goal (LTG) Pt to report ability to put dishes away without increased pain for one week straight LTG Duration 11/27/21 One Impairment Pt does not have an appropriate home exercise program Short Term Goal (STG) Pt to be independent and compliant with an appropriate HEP STG Duration 10/27/21 Assessment Summary Assessment Pt did very well today, required verbal cues to positioning of arms during PNF , but then tolerated movements very well. Left UT showing increased tenderness today, but otherwise doing well. Physical Therapy Plan Frequency and Duration Frequency of Treatment 2x/Week Duration of Treatment Two months Plan of Care Start Date 09/30/21 Plan of Care End Date 11/30/21 Therapeutic Interventions Therapeutic Interventions Aquatic Therapy,Home Exercise Program,Joint Mobilizations, Manual Therapy,Patient/ Caregiver Education,Self-Care/ Home Management,Soft Tissue Mobilization,Therapeutic Activities,Therapeutic Exercises Modalities Cold Pack/Ice Massage,Electric Stimulation,Hot Packs, Ultrasound Next Visit Focus/Plan Next Note Type Treatment Note Next Visit Plan Stretching/flexibility, STM, Strengthening
--- NOTE | 2021-11-29 12:47 | PT.OTN ---
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 Pt reports that if she tried to lay on her side (which is her preferred sleeping position), she gets severe pain through her shoulder and down her arm. She feels specifically it goes down the dorsal side of her forearm, but she isn't quite sure. She is able to eliminate the pain by laying on her back and putting her arms outstretched down by her side. Pt also notes increased pain when reaching up to put dishes away or trying to get up and down while gardening. 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 Treatment Goals Patient/Caregiver Goals Improve sleeping ability, would like to returen to sleeping on either side pain- free PT-OP-C Subjective Start: 09/27/21 16:55 Freq: Status: Active Protocol: Document 11/29/21 10:40 DCW (Rec: 11/29/21 11:29 DCW [id number]) OP-PT Subjective Patient Comments Patient Comments Pt notes her neck and head have been so sore she ended up going to the ED, received x- ray and CT scan. Saw Dr Avila for follow up, recommended continued PT on shoulders, and , per pt, to not address the c -spine in PT, just rotator cuff. PT-OP-E Functional Tests Start: 09/27/21 16:55 Freq: Status: Active Protocol: Document 11/29/21 10:40 DCW (Rec: 11/29/21 10:52 DCW [id number]) Functional Tests Apley's Scratch Test Action 1- Left Lateral opposite shoulder Action 1- Right Lateral opposite shoulder Action 2- Left T2 Action 2- Right T2 Action 3- Left T9 Action 3- Right T11 PT-OP-F Manual Assessment Start: 09/27/21 16:55 Freq: Status: Active Protocol: Document 11/29/21 10:40 DCW (Rec: 11/29/21 10:52 DCW [id number]) Manual Assessments Soft Tissue Assessment Soft Tissue Mobility Assessment Moderate-severe tone and tenderness to palpation 3/4: Wincing and withdraw along bilateral pecs major, rhomboids, subscap, infraspinatus, upper trap, scalenes PT-OP-K Range of Motion Start: 09/27/21 16:55 Freq: Status: Active Protocol: Document 11/29/21 10:40 DCW (Rec: 11/29/21 10:52 DCW [id number]) Shoulder Goniometric Range of Motion Shoulder Right Active Flexion 130 Abduction 143 External Rotation at 0 degrees Abduction 76 Left Active Testing Position Sitting Flexion 122 Abduction 124 External Rotation at 0 degrees Abduction 72 PT-OP-L Special Tests Start: 09/27/21 16:55 Freq: Status: Active Protocol: Document 11/29/21 10:40 DCW (Rec: 11/29/21 10:52 DCW [id number]) Special Tests Shoulder Special Tests Passive ER Rotator Cuff Test Results Negative Lift-Off Rotator Cuff Test Results Positive Right Mondragon Boo Impingement Test Results Positive Left Empty Can Test Results Negative Drop Arm Rotator Cuff Test Results Negative Clunk Test Test Results Negative Belly Press Test Results Negative Apprehension Test Test Results Negative PT-OP-M Strength Start: 09/27/21 16:55 Freq: Status: Active Protocol: Document 11/29/21 10:40 DCW (Rec: 11/29/21 10:52 DCW [id number]) Shoulder Strength Shoulder Manual Muscle Testing Right Flexion 4 Good Abduction (C5) 4 Good External Rotation 4+ Good+ Internal Rotation 4+ Good+ Left Flexion 4 Good Abduction (C5) 4 Good External Rotation 4+ Good+ Internal Rotation 4+ Good+ Comments Pain with resisted flexion Elbow/Forearm Strength Elbow and Forearm Manual Muscle Testing Right Flexion (C6) 4+ Good+ Extension (C7) 4+ Good+ Left Flexion (C6) 4+ Good+ Extension (C7) 4+ Good+ PT-OP-Q Treatments Start: 09/27/21 16:55 Freq: Status: Active Protocol: Document 11/29/21 10:40 DCW (Rec: 11/29/21 11:29 ORW [id number]) Cardio Equipment Upper Body Ergometer (UBE) Duration (Minutes) 5 RPM 60 Seat Position 10 Height 2.5 Therapeutic Exercises Standing Exercises Abduction Standing Exercise Name Shoulder Abduction Side bilateral Resistance 2# Flexion Standing Exercise Name Shoulder Flexion Side bilateral Resistance 2# Shoulder press Standing Exercise Name Shoulder press Side bilateral Resistance 2# Manual Therapy Treatment Soft Tissue Mobilization Rhomboids Mobilization Type Sustained Pressure,Trigger Point Release Body Position Supine Scalenes Mobilization Type Sustained Pressure,Trigger Point Release Body Position Supine Joint Mobilizations Glenohumeral Joint B GH Mobs Direction Inferior Grade III Body Position Supine PT-OP-T Assessment and Plan Start: 09/27/21 16:55 Freq: Status: Active Protocol: Document 11/29/21 10:40 DCW (Rec: 11/29/21 11:29 DCW [id number]) Physical Therapy Assessment Impairments Impairments Functional Activities, Functional Mobility,Pain, Posture,ROM,Soft Tissue Mobility,Strength,Tone Goals Three Impairment Pt reports disturbed sleep due to shoulder pain Training Development Specialist Goal (LTG) Pt to reports not waking up during the night due to pain for 80% of nights LTG Duration 01/29/22 Two Impairment Pt unable to put dishes away without increased shoulder pain Care Home Goal (LTG) Pt to report ability to put dishes away without increased pain for one week straight LTG Duration 01/29/22 One Impairment Pt does not have an appropriate home exercise program Short Term Goal (STG) Pt to be independent and compliant with an appropriate HEP STG Duration 12/30/21 Assessment Summary Assessment Pt making some improvements with ROM, still complaining of increasing pain in neck, small improvement in shoulders . Pt has been seeing small improvement with functional mobility. Pt should continue with skilled therapy to decrease pain levels and improve functional mobility. Physical Therapy Plan Frequency and Duration Frequency of Treatment 2x/Week Duration of Treatment Two months Plan of Care Start Date 11/29/21 Plan of Care End Date 01/29/22 Therapeutic Interventions Therapeutic Interventions Aquatic Therapy,Home Exercise Program,Joint Mobilizations, Manual Therapy,Patient/ Caregiver Education,Self-Care/ Home Management,Soft Tissue Mobilization,Therapeutic Activities,Therapeutic Exercises Modalities Cold Pack/Ice Massage,Electric Stimulation,Hot Packs, Ultrasound Next Visit Focus/Plan Next Note Type Treatment Note Next Visit Plan Stretching/flexibility, STM, Strengthening
--- NOTE | 2021-11-29 12:47 | PT.OPPOC ---
Physical, Occupational & Speech Therapy At [facility] Current Diagnoses Other shoulder lesions, right shoulder (11/29/21) Other shoulder lesions, left shoulder (11/29/21) Visit Care Team Role Provider Type Karlos Avila MD Attending Provider Physician Family Provider Primary Care Provider Referring Provider Specialty: Internal Medicine Address: [address] [place] [address], [facility] Email: [email or web address] Plan Of Care PT-OP-T Assessment and Plan Start: 09/27/21 16:55 Freq: Status: Active Protocol: Document 11/29/21 10:40 DCW (Rec: 11/29/21 11:29 DCW [id number]) Physical Therapy Assessment Impairments Impairments Functional Activities, Functional Mobility,Pain, Posture,ROM,Soft Tissue Mobility,Strength,Tone Goals Three Impairment Pt reports disturbed sleep due to shoulder pain Penitentiary Goal (LTG) Pt to reports not waking up during the night due to pain for 80% of nights LTG Duration 01/29/22 Two Impairment Pt unable to put dishes away without increased shoulder pain Penitentiary Goal (LTG) Pt to report ability to put dishes away without increased pain for one week straight LTG Duration 01/29/22 One Impairment Pt does not have an appropriate home exercise program Short Term Goal (STG) Pt to be independent and compliant with an appropriate HEP STG Duration 12/30/21 Assessment Summary Assessment Pt making some improvements with ROM, still complaining of increasing pain in neck, small improvement in shoulders . Pt has been seeing small improvement with functional mobility. Pt should continue with skilled therapy to decrease pain levels and improve functional mobility. Physical Therapy Plan Frequency and Duration Frequency of Treatment 2x/Week Duration of Treatment Two months Plan of Care Start Date 11/29/21 Plan of Care End Date 01/29/22 Therapeutic Interventions Therapeutic Interventions Aquatic Therapy,Home Exercise Program,Joint Mobilizations, Manual Therapy,Patient/ Caregiver Education,Self-Care/ Home Management,Soft Tissue Mobilization,Therapeutic Activities,Therapeutic Exercises Modalities Cold Pack/Ice Massage,Electric Stimulation,Hot Packs, Ultrasound Next Visit Focus/Plan Next Note Type Treatment Note Next Visit Plan Stretching/flexibility, STM, Strengthening Plan of Care Dates Plan of Care Start Date 11/29/21 Plan of Care End Date 01/29/22 Electronically Signed by: Meño Bal, PT 11/29/21 9164 If you are in agreement with this Plan of Care, please return a signed and dated copy. I have reviewed this Plan of Care and certify that the skilled therapy services above are required to meet the patient?s needs. Physician Signature Date Printed Name and Credentials Clinical Instructor Signature Printed Name and Credentials
--- NOTE | 2021-12-03 17:28 | PT.OTN ---
Current Diagnoses Other shoulder lesions, right shoulder (12/03/21) Other shoulder lesions, left shoulder (12/03/21) Physical Therapy Treatment Note PT-OP-A Visit Information Start: 09/27/21 16:55 Freq: Status: Active Protocol: Document 12/03/21 16:45 DCW (Rec: 12/03/21 17:28 DCW [id number]) Out-Patient Physical Therapy Visit Information Visit Information Visit Type Treatment Note Visit Start Time 16:45 Visit Stop Time 17:30 Total Visit Minutes 45 Visit Number 8 Number of CASING RUNNER Visits 0 Evaluation Information Evaluation Date 09/27/21 PT-OP-B Current Condition Start: 09/27/21 16:55 Freq: Status: Active Protocol: Document 09/27/21 12:00 DCW (Rec: 09/30/21 09:44 DCW [id number]) Current Condition History of Current Condition Onset Date Long-standing history Current Complaints Bilateral shoulder pain, worse when sleeping or with overhead movement History of Current Condition Pt is a 75 year old female presenting with a long- standing history of bilateral shoulder pain. Pt reports that if she tried to lay on her side (which is her preferred sleeping position), she gets severe pain through her shoulder and down her arm. She feels specifically it goes down the dorsal side of her forearm, but she isn't quite sure. She is able to eliminate the pain by laying on her back and putting her arms outstretched down by her side. Pt also notes increased pain when reaching up to put dishes away or trying to get up and down while gardening. 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 Treatment Goals Patient/Caregiver Goals Improve sleeping ability, would like to returen to sleeping on either side pain- free PT-OP-C Subjective Start: 09/27/21 16:55 Freq: Status: Active Protocol: Document 12/03/21 16:45 DCW (Rec: 12/03/21 17:28 DCW [id number]) OP-PT Subjective Patient Comments Patient Comments It seems to get worse as the day goes on. PT-OP-E Functional Tests Start: 09/27/21 16:55 Freq: Status: Active Protocol: Document 11/29/21 10:40 DCW (Rec: 11/29/21 10:52 DCW [id number]) Functional Tests Apley's Scratch Test Action 1- Left Lateral opposite shoulder Action 1- Right Lateral opposite shoulder Action 2- Left T2 Action 2- Right T2 Action 3- Left T9 Action 3- Right T11 PT-OP-F Manual Assessment Start: 09/27/21 16:55 Freq: Status: Active Protocol: Document 11/29/21 10:40 DCW (Rec: 11/29/21 10:52 DCW [id number]) Manual Assessments Soft Tissue Assessment Soft Tissue Mobility Assessment Moderate-severe tone and tenderness to palpation 3/4: Wincing and withdraw along bilateral pecs major, rhomboids, subscap, infraspinatus, upper trap, scalenes PT-OP-K Range of Motion Start: 09/27/21 16:55 Freq: Status: Active Protocol: Document 11/29/21 10:40 DCW (Rec: 11/29/21 10:52 DCW [id number]) Shoulder Goniometric Range of Motion Shoulder Right Active Flexion 130 Abduction 143 External Rotation at 0 degrees Abduction 76 Left Active Testing Position Sitting Flexion 122 Abduction 124 External Rotation at 0 degrees Abduction 72 PT-OP-L Special Tests Start: 09/27/21 16:55 Freq: Status: Active Protocol: Document 11/29/21 10:40 DCW (Rec: 11/29/21 10:52 DCW [id number]) Special Tests Shoulder Special Tests Passive ER Rotator Cuff Test Results Negative Lift-Off Rotator Cuff Test Results Positive Right Mondragon Boo Impingement Test Results Positive Left Empty Can Test Results Negative Drop Arm Rotator Cuff Test Results Negative Clunk Test Test Results Negative Belly Press Test Results Negative Apprehension Test Test Results Negative PT-OP-M Strength Start: 09/27/21 16:55 Freq: Status: Active Protocol: Document 11/29/21 10:40 DCW (Rec: 11/29/21 10:52 DCW [id number]) Shoulder Strength Shoulder Manual Muscle Testing Right Flexion 4 Good Abduction (C5) 4 Good External Rotation 4+ Good+ Internal Rotation 4+ Good+ Left Flexion 4 Good Abduction (C5) 4 Good External Rotation 4+ Good+ Internal Rotation 4+ Good+ Comments Pain with resisted flexion Elbow/Forearm Strength Elbow and Forearm Manual Muscle Testing Right Flexion (C6) 4+ Good+ Extension (C7) 4+ Good+ Left Flexion (C6) 4+ Good+ Extension (C7) 4+ Good+ PT-OP-Q Treatments Start: 09/27/21 16:55 Freq: Status: Active Protocol: Document 12/03/21 16:45 DCW (Rec: 12/03/21 17:28 DCW [id number]) Cardio Equipment Upper Body Ergometer (UBE) Duration (Minutes) 5 RPM 60 Seat Position 12 Height 3 Therapeutic Exercises Supine Exercises Flys Supine Exercise Name Supine Flys Side bilateral Resistance 2# Serratus punch Supine Exercise Name Serratus punch Side bilateral Resistance 2# Standing Exercises Abduction Standing Exercise Name Shoulder Abduction Side bilateral Resistance 2# Flexion Standing Exercise Name Shoulder Flexion Side bilateral Resistance 2# Shoulder press Standing Exercise Name Shoulder press Side bilateral Resistance 2# Manual Therapy Treatment Soft Tissue Mobilization Rhomboids Mobilization Type Sustained Pressure,Trigger Point Release Body Position Supine Scalenes Mobilization Type Sustained Pressure,Trigger Point Release Body Position Supine Joint Mobilizations Glenohumeral Joint B GH Mobs Direction Inferior Grade III Body Position Supine PT-OP-T Assessment and Plan Start: 09/27/21 16:55 Freq: Status: Active Protocol: Document 12/03/21 16:45 DCW (Rec: 12/03/21 17:28 DCW [id number]) Physical Therapy Assessment Impairments Impairments Functional Activities, Functional Mobility,Pain, Posture,ROM,Soft Tissue Mobility,Strength,Tone Goals Three Impairment Pt reports disturbed sleep due to shoulder pain Custodial Goal (LTG) Pt to reports not waking up during the night due to pain for 80% of nights LTG Duration 01/29/22 Two Impairment Pt unable to put dishes away without increased shoulder pain Custodial Goal (LTG) Pt to report ability to put dishes away without increased pain for one week straight LTG Duration 01/29/22 One Impairment Pt does not have an appropriate home exercise program Short Term Goal (STG) Pt to be independent and compliant with an appropriate HEP STG Duration 12/30/21 Assessment Summary Assessment Pt tolerated treatment well, discussed position at home, pt has a habit of lying in bed supine and holding her tablet out in front of her face to play solitaire prior to going to sleep. Physical Therapy Plan Frequency and Duration Frequency of Treatment 2x/Week Duration of Treatment Two months Plan of Care Start Date 11/29/21 Plan of Care End Date 01/29/22 Therapeutic Interventions Therapeutic Interventions Aquatic Therapy,Home Exercise Program,Joint Mobilizations, Manual Therapy,Patient/ Caregiver Education,Self-Care/ Home Management,Soft Tissue Mobilization,Therapeutic Activities,Therapeutic Exercises Modalities Cold Pack/Ice Massage,Electric Stimulation,Hot Packs, Ultrasound Next Visit Focus/Plan Next Note Type Treatment Note Next Visit Plan Stretching/flexibility, STM, Strengthening
--- NOTE | 2021-12-06 11:15 | PT.OTN ---
Current Diagnoses Other shoulder lesions, right shoulder (12/06/21) Other shoulder lesions, left shoulder (12/06/21) Physical Therapy Treatment Note PT-OP-A Visit Information Start: 09/27/21 16:55 Freq: Status: Active Protocol: Document 12/06/21 10:33 DCW (Rec: 12/06/21 11:14 DCW [id number]) Out-Patient Physical Therapy Visit Information Visit Information Visit Type Treatment Note Visit Start Time 10:33 Visit Stop Time 11:15 Total Visit Minutes 42 Visit Number 9 Number of FAST FOOD MANAGER Visits 0 Evaluation Information Evaluation Date 09/27/21 PT-OP-B Current Condition Start: 09/27/21 16:55 Freq: Status: Active Protocol: Document 09/27/21 12:00 DCW (Rec: 09/30/21 09:44 DCW [id number]) Current Condition History of Current Condition Onset Date Long-standing history Current Complaints Bilateral shoulder pain, worse when sleeping or with overhead movement History of Current Condition Pt is a 75 year old female presenting with a long- standing history of bilateral shoulder pain. Pt reports that if she tried to lay on her side (which is her preferred sleeping position), she gets severe pain through her shoulder and down her arm. She feels specifically it goes down the dorsal side of her forearm, but she isn't quite sure. She is able to eliminate the pain by laying on her back and putting her arms outstretched down by her side. Pt also notes increased pain when reaching up to put dishes away or trying to get up and down while gardening. 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 Treatment Goals Patient/Caregiver Goals Improve sleeping ability, would like to returen to sleeping on either side pain- free PT-OP-C Subjective Start: 09/27/21 16:55 Freq: Status: Active Protocol: Document 12/06/21 10:33 DCW (Rec: 12/06/21 11:14 DCW [id number]) OP-PT Subjective Patient Comments Patient Comments I feel better than I have in a long time. Still a bit of a twinge in my neck now and then , but still really good. PT-OP-E Functional Tests Start: 09/27/21 16:55 Freq: Status: Active Protocol: Document 11/29/21 10:40 DCW (Rec: 11/29/21 10:52 DCW [id number]) Functional Tests Apley's Scratch Test Action 1- Left Lateral opposite shoulder Action 1- Right Lateral opposite shoulder Action 2- Left T2 Action 2- Right T2 Action 3- Left T9 Action 3- Right T11 PT-OP-F Manual Assessment Start: 09/27/21 16:55 Freq: Status: Active Protocol: Document 11/29/21 10:40 DCW (Rec: 11/29/21 10:52 DCW [id number]) Manual Assessments Soft Tissue Assessment Soft Tissue Mobility Assessment Moderate-severe tone and tenderness to palpation 3/4: Wincing and withdraw along bilateral pecs major, rhomboids, subscap, infraspinatus, upper trap, scalenes PT-OP-K Range of Motion Start: 09/27/21 16:55 Freq: Status: Active Protocol: Document 11/29/21 10:40 DCW (Rec: 11/29/21 10:52 DCW [id number]) Shoulder Goniometric Range of Motion Shoulder Right Active Flexion 130 Abduction 143 External Rotation at 0 degrees Abduction 76 Left Active Testing Position Sitting Flexion 122 Abduction 124 External Rotation at 0 degrees Abduction 72 PT-OP-L Special Tests Start: 09/27/21 16:55 Freq: Status: Active Protocol: Document 11/29/21 10:40 DCW (Rec: 11/29/21 10:52 DCW [id number]) Special Tests Shoulder Special Tests Passive ER Rotator Cuff Test Results Negative Lift-Off Rotator Cuff Test Results Positive Right Mondragon Boo Impingement Test Results Positive Left Empty Can Test Results Negative Drop Arm Rotator Cuff Test Results Negative Clunk Test Test Results Negative Belly Press Test Results Negative Apprehension Test Test Results Negative PT-OP-M Strength Start: 09/27/21 16:55 Freq: Status: Active Protocol: Document 11/29/21 10:40 DCW (Rec: 11/29/21 10:52 DCW [id number]) Shoulder Strength Shoulder Manual Muscle Testing Right Flexion 4 Good Abduction (C5) 4 Good External Rotation 4+ Good+ Internal Rotation 4+ Good+ Left Flexion 4 Good Abduction (C5) 4 Good External Rotation 4+ Good+ Internal Rotation 4+ Good+ Comments Pain with resisted flexion Elbow/Forearm Strength Elbow and Forearm Manual Muscle Testing Right Flexion (C6) 4+ Good+ Extension (C7) 4+ Good+ Left Flexion (C6) 4+ Good+ Extension (C7) 4+ Good+ PT-OP-Q Treatments Start: 09/27/21 16:55 Freq: Status: Active Protocol: Document 12/06/21 10:33 DCW (Rec: 12/06/21 11:14 [facility] [id number]) Cardio Equipment Upper Body Ergometer (UBE) Duration (Minutes) 5 RPM 60 Seat Position 12 Height 3 Therapeutic Exercises Supine Exercises Flys Supine Exercise Name Supine Flys Side bilateral Resistance 2# Serratus punch Supine Exercise Name Serratus punch Side bilateral Resistance 2# Standing Exercises Abduction Standing Exercise Name Shoulder Abduction Side bilateral Resistance 2# Flexion Standing Exercise Name Shoulder Flexion Side bilateral Resistance 2# Shoulder press Standing Exercise Name Shoulder press Side bilateral Resistance 2# Manual Therapy Treatment Soft Tissue Mobilization Rhomboids Mobilization Type Sustained Pressure,Trigger Point Release Body Position Supine Scalenes Mobilization Type Sustained Pressure,Trigger Point Release Body Position Supine Joint Mobilizations Glenohumeral Joint B GH Mobs Direction Inferior Grade III Body Position Supine PT-OP-T Assessment and Plan Start: 09/27/21 16:55 Freq: Status: Active Protocol: Document 12/06/21 10:33 DCW (Rec: 12/06/21 11:14 [facility] [id number]) Physical Therapy Assessment Impairments Impairments Functional Activities, Functional Mobility,Pain, Posture,ROM,Soft Tissue Mobility,Strength,Tone Goals Three Impairment Pt reports disturbed sleep due to shoulder pain Shelter Goal (LTG) Pt to reports not waking up during the night due to pain for 80% of nights LTG Duration 01/29/22 Two Impairment Pt unable to put dishes away without increased shoulder pain Measurement Specialist Goal (LTG) Pt to report ability to put dishes away without increased pain for one week straight LTG Duration 01/29/22 One Impairment Pt does not have an appropriate home exercise program Short Term Goal (STG) Pt to be independent and compliant with an appropriate HEP STG Duration 12/30/21 Assessment Summary Assessment Pt feeling very good at the moment, does not have a scheduled appointment for two weeks, is considering canceling the remaining appointments and discharging if she continues to feel as well as she does. Physical Therapy Plan Frequency and Duration Frequency of Treatment 2x/Week Duration of Treatment Two months Plan of Care Start Date 11/29/21 Plan of Care End Date 01/29/22 Therapeutic Interventions Therapeutic Interventions Aquatic Therapy,Home Exercise Program,Joint Mobilizations, Manual Therapy,Patient/ Caregiver Education,Self-Care/ Home Management,Soft Tissue Mobilization,Therapeutic Activities,Therapeutic Exercises Modalities Cold Pack/Ice Massage,Electric Stimulation,Hot Packs, Ultrasound Next Visit Focus/Plan Next Note Type Treatment Note Next Visit Plan Stretching/flexibility, STM, Strengthening
--- NOTE | 2022-01-27 11:34 | PT.OPDS ---
Current Diagnoses Other shoulder lesions, right shoulder (12/06/21) Other shoulder lesions, left shoulder (12/06/21) Visit Care Team Role Provider Type Karlos Avila MD Attending Provider Physician Family Provider Primary Care Provider Referring Provider Specialty: Internal Medicine Address: [address] [place] [address], [facility] Email: [email or web address] Visit Number Visit Number 9 Discharge Summary PT-OP-B Current Condition Start: 09/27/21 16:55 Freq: Status: Active Protocol: Document 09/27/21 12:00 DCW (Rec: 09/30/21 09:44 DCW [id number]) Current Condition History of Current Condition Onset Date Long-standing history Current Complaints Bilateral shoulder pain, worse when sleeping or with overhead movement History of Current Condition Pt is a 75 year old female presenting with a long- standing history of bilateral shoulder pain. Pt reports that if she tried to lay on her side (which is her preferred sleeping position), she gets severe pain through her shoulder and down her arm. She feels specifically it goes down the dorsal side of her forearm, but she isn't quite sure. She is able to eliminate the pain by laying on her back and putting her arms outstretched down by her side. Pt also notes increased pain when reaching up to put dishes away or trying to get up and down while gardening. 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 Treatment Goals Patient/Caregiver Goals Improve sleeping ability, would like to returen to sleeping on either side pain- free PT-OP-C Subjective Start: 09/27/21 16:55 Freq: Status: Active Protocol: Document 12/06/21 10:33 DCW (Rec: 12/06/21 11:14 DCW [id number]) OP-PT Subjective Patient Comments Patient Comments I feel better than I have in a long time. Still a bit of a twinge in my neck now and then , but still really good. PT-OP-E Functional Tests Start: 09/27/21 16:55 Freq: Status: Active Protocol: Document 11/29/21 10:40 DCW (Rec: 11/29/21 10:52 DCW [id number]) Functional Tests Apley's Scratch Test Action 1- Left Lateral opposite shoulder Action 1- Right Lateral opposite shoulder Action 2- Left T2 Action 2- Right T2 Action 3- Left T9 Action 3- Right T11 PT-OP-F Manual Assessment Start: 09/27/21 16:55 Freq: Status: Active Protocol: Document 11/29/21 10:40 DCW (Rec: 11/29/21 10:52 DCW [id number]) Manual Assessments Soft Tissue Assessment Soft Tissue Mobility Assessment Moderate-severe tone and tenderness to palpation 3/4: Wincing and withdraw along bilateral pecs major, rhomboids, subscap, infraspinatus, upper trap, scalenes PT-OP-K Range of Motion Start: 09/27/21 16:55 Freq: Status: Active Protocol: Document 11/29/21 10:40 DCW (Rec: 11/29/21 10:52 DCW [id number]) Shoulder Goniometric Range of Motion Shoulder Right Active Flexion 130 Abduction 143 External Rotation at 0 degrees Abduction 76 Left Active Testing Position Sitting Flexion 122 Abduction 124 External Rotation at 0 degrees Abduction 72 PT-OP-L Special Tests Start: 09/27/21 16:55 Freq: Status: Active Protocol: Document 11/29/21 10:40 DCW (Rec: 11/29/21 10:52 DCW [id number]) Special Tests Shoulder Special Tests Passive ER Rotator Cuff Test Results Negative Lift-Off Rotator Cuff Test Results Positive Right Mondragon Boo Impingement Test Results Positive Left Empty Can Test Results Negative Drop Arm Rotator Cuff Test Results Negative Clunk Test Test Results Negative Belly Press Test Results Negative Apprehension Test Test Results Negative PT-OP-M Strength Start: 09/27/21 16:55 Freq: Status: Active Protocol: Document 11/29/21 10:40 DCW (Rec: 11/29/21 10:52 DCW [id number]) Shoulder Strength Shoulder Manual Muscle Testing Right Flexion 4 Good Abduction (C5) 4 Good External Rotation 4+ Good+ Internal Rotation 4+ Good+ Left Flexion 4 Good Abduction (C5) 4 Good External Rotation 4+ Good+ Internal Rotation 4+ Good+ Comments Pain with resisted flexion Elbow/Forearm Strength Elbow and Forearm Manual Muscle Testing Right Flexion (C6) 4+ Good+ Extension (C7) 4+ Good+ Left Flexion (C6) 4+ Good+ Extension (C7) 4+ Good+ PT-OP-T Assessment and Plan Start: 09/27/21 16:55 Freq: Status: Active Protocol: Document 01/27/22 11:33 DCW (Rec: 01/27/22 11:34 DCW [id number]) Physical Therapy Assessment Assessment Summary Assessment At pt's last appointment, she was feeling better and mentioned that she may be considering discharge. Pt has since phoned and canceled remaining appointments. Pt will be discharged at this time. Pt will require a new referral in order to return to skilled therapy. Physical Therapy Plan Discharge Physical Therapy Discharge Reasons Patient Request
== END 2022-01-28 12:02 | disposition home or self-care (01) ==
LOC: PHYS 10:30
PROVIDERS: Family Provider Internal Medicine; PCP Internal Medicine; Referring Provider Internal Medicine; Visit Provider Internal Medicine
DX: M75.81 Other shoulder lesions, right shoulder (principal); M75.82 Other shoulder lesions, left shoulder
CPT/HCPCS: 97110; 97116; 97140; 97161

== ENCOUNTER → 2022-02-21 12:28 | Outpatient (CLI) | payer MEDICARE, OTHER, SELFPAY | PROVIDERS: Family Provider Internal Medicine; PCP Internal Medicine; Referring Provider Internal Medicine; Visit Provider Internal Medicine | DX: E11.42 Type 2 diabetes mellitus with diabetic polyneuropathy (principal) | CPT/HCPCS: 36415; 83036 ==

== ENCOUNTER → 2022-04-17 14:03 | Outpatient (CLI) | payer MEDICARE, OTHER, SELFPAY ==
--- NOTE | 2022-04-17 14:05 | DI.RAD.S_ITS ---
PROCEDURE: XR HIP W PEL IF DONE RT 2V INDICATIONS: Right hip pain TECHNIQUE: 2 views of the hip were acquired. COMPARISON: [facility], , HIP 2V RIGHT, 01/10/2014, 8:58. FINDINGS: Bones: Moderate bilateral arthrosis, slightly greater on the left. No displaced fracture. No dislocation. Lumbosacral spinal curvature and degenerative changes. Soft tissues: Pelvic clips. Moderate fecal loading. 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 If there is high concern for further derangement, consider MRI evaluation. Dictated by: Nash Nazario M.D. on 04/17/2022 at 14:45 Approved by: Nash Nazario M.D. on 04/17/2022 at 14:47
== END ==
PROVIDERS: Family Provider Internal Medicine; PCP Internal Medicine; Referring Provider Registered Nurse; Visit Provider Registered Nurse
DX: M16.0 Bilateral primary osteoarthritis of hip (principal); M25.551 Pain in right hip
CPT/HCPCS: 73502

== ENCOUNTER → 2022-09-04 11:48 | Outpatient (CLI) | payer MEDICARE, OTHER, SELFPAY ==
[2022-09-04 13:07] LABS: Aspartate Aminotransferase 26 IU/L (14-36); BUN Creatinine Ratio 20.4 (6-22); Blood Urea Nitrogen 23 mg/dL (7-17); Calcium 9.6 mg/dL (8.4-10.2); Carbon Dioxide 28 mmol/L (22-32); Chloride 104 mmol/L (98-107); Estimated Glomerular Filt Rate 51 mL/min (>60); Glucose 83 mg/dL (80-110); HEMOLYSIS < 15 (0-50); Potassium 4.5 mmol/L (3.4-5.1); Sodium 138 mmol/L (137-145)
[2022-09-04 13:27] LABS: TSH w/ Reflex to FT4 3.03 uIU/mL (0.47-4.68)
[2022-09-04 16:08] LABS: Creatinine Urine Random 78.4 mg/dL
[2022-09-04 16:12] LABS: Microalbumi Creatinin Ratio Ur 118.6 ug/mg CR (<30); Microalbumin Urine Random 9.3 mg/dL (0-1.6)
[2022-09-05 02:07] LABS: Labcorp Hemoglobin (Hb) A1c 7.2 % (4.8-5.6)
== END ==
PROVIDERS: Family Provider Internal Medicine; PCP Internal Medicine; Referring Provider Internal Medicine; Visit Provider Internal Medicine
DX: E03.9 Hypothyroidism, unspecified; E78.2 Mixed hyperlipidemia; I10 Essential (primary) hypertension; E11.42 Type 2 diabetes mellitus with diabetic polyneuropathy
CPT/HCPCS: 36415; 80048; 82043; 82570; 83036; 84443; 84450

== ENCOUNTER → 2022-10-08 12:53 | Outpatient (CLI) | payer MEDICARE, OTHER, SELFPAY ==
--- NOTE | 2022-10-08 | DI.MG.S_ITS ---
BILATERAL DIGITAL SCREENING MAMMOGRAM 3D/2D WITH CAD: 10/08/2022 CLINICAL: Routine screening. Comparison is made to exams dated: 10/01/2021 mammogram, 06/09/2020 mammogram, 05/23/2019 mammogram, 06/28/2014 mammogram, 07/05/2015 mammogram, and 11/06/2016 mammogram - [facility]. There are scattered areas of fibroglandular density in both breasts (category b / 25%-50% glandular tissue). Current study was also evaluated with a Computer Aided Detection (CAD) system. There are benign calcifications in both breasts. There also are benign post operative findings in both breasts. No significant masses, calcifications, or other findings are seen in either breast. There has been no significant interval change. IMPRESSION: BENIGN There is no mammographic evidence of malignancy. A 1 year screening mammogram is recommended. Based on the Tyrer Cuzick model (a risk assessment model) the patient's lifetime risk is 1.7% and her 10 year risk is 1.6%. According to the ACR, ACS, and NCCN guidelines, an annual breast MRI exam along with mammogram is recommended if the patient's lifetime risk is 20% or greater. This exam was interpreted at Station ID: [id number]. NOTE: For mammograms, a report in lay terms will be sent to the patient. Approximately 15% of breast malignancies will not be visualized mammographically. In the management of a palpable breast mass, a negative mammogram must not discourage biopsy of a clinically suspicious lesion. Electronically Signed By: Víctor king/dian:10/08/2022 16:11:39 letter sent: Normal Exam ACR BI-RADS Category 2: Benign Finding(s) [id number]
== END ==
PROVIDERS: Family Provider Internal Medicine; PCP Internal Medicine; Referring Provider Internal Medicine; Visit Provider Internal Medicine
DX: Z12.31 Encounter for screening mammogram for malignant neoplasm of breast (principal)
CPT/HCPCS: 77063; 77067

== ENCOUNTER 2023-01-15 18:51 | Emergency (ER) | payer MEDICARE, OTHER, SELFPAY ==
[2023-01-15] VITALS (12 sets, daily range): BP systolic 134–208; BP diastolic 69–101; PULSE 76–85; RESP 15–22; TEMP 37.3; O2SAT 96–100; BMI 29.1
--- NOTE | 2023-01-15 19:04 | DI.RAD.S_ITS ---
PROCEDURE: XR CHEST 1V INDICATIONS: chest pain TECHNIQUE: One view of the chest was acquired. COMPARISON: [facility], , CHEST 2 VIEW, 08/03/2009, 11:09. FINDINGS: Surgical changes and devices: None. Lungs and pleura: Lungs are clear. No pleural effusions or pneumothorax. Mediastinum: Mediastinal contours appear normal. Heart size is normal. Bones and chest wall: No suspicious bony lesions. Overlying soft tissues appear unremarkable. IMPRESSION: No acute process. Dictated by: Princess Wayne M.D. on 01/15/2023 at 19:32 Approved by: Princess Wayne M.D. on 01/15/2023 at 19:32
--- NOTE | 2023-01-15 19:15 | ED.CHESTPAIN ---
HPI - Chest Pain General Chief Complaint: Chest Pain Stated Complaint: left arm/shoulder pain moving across chest covid+ Time Seen by Provider: 01/15/23 18:58 Source: patient Mode of arrival: Wheelchair Limitations: no limitations History of Present Illness HPI narrative: 77-year-old female former smoker with a history of type 2 diabetes, hypertension, hyperlipidemia, polyneuropathy, prior colon cancer, chronic kidney disease, prior nephrectomy presents with a chief complaint of 2 weeks of left arm, shoulder and chest pain. She states that she was recently diagnosed with COVID and the symptoms seemed to start in the aftermath. She denies any trauma or injury, no overuse or new activity. She states that she 1st noticed it on her left forearm but now it seems to be largely in her left shoulder. Her pain is sharp and stabbing and made worse with motion and improves with rest. She denies any exertional symptoms and has no shortness of breath, dizziness, weakness or lightheadedness, no nausea, vomiting or diarrhea. She denies any numbness, tingling or weakness. She denies any neck pain Related Data Home Medications Medication Instructions Recorded Confirmed aspirin 81 mg tablet,delayed 81 mg PO DAILY 04/28/18 01/15/23 release acetaminophen 500 mg tablet 500 mg PO TID 05/20/18 01/15/23 (Tylenol Extra Strength) ascorbic acid (vitamin C) 500 mg 500 mg PO DAILY 01/23/21 01/15/23 tablet (Vitamin C) cholecalciferol (vitamin D3) 50 50 mcg PO DAILY 01/23/21 01/15/23 mcg (2,000 unit) capsule (Vitamin D3) betamethasone dipropionate 0.05 % 1 applic topical BID PRN skin 02/21/22 01/15/23 topical cream irritation Previous Rx's Medication Instructions Recorded levothyroxine 125 mcg tablet 125 mcg PO DAILY #90 tabs 09/04/21 losartan 50 mg tablet 50 mg PO DAILY #90 tabs 09/04/21 gabapentin 100 mg capsule 500 mg PO DAILY #450 caps 04/09/22 oxycodone-acetaminophen 5 mg-325 1 tab PO Q6H PRN pain #10 tabs 04/24/22 mg tablet (Percocet) estradiol 0.01% (0.1 mg/gram) 1 g vaginal 3XW #42.5 grams 08/19/22 vaginal cream insulin degludec 100 unit/mL (3 12 unit (0.12 mL) SUBCUT QPM #15 mL 09/04/22 mL) subcutaneous pen rosuvastatin 20 mg tablet 20 mg PO DAILY #90 tabs 09/25/22 metformin 500 mg tablet 1,000 mg PO BID #360 tabs 11/10/22 sertraline 50 mg tablet 50 mg PO QPM #90 tabs 12/15/22 nirmatrelvir 150 mg-ritonavir 100 See Rx Instructions PO PER PKG DIR 12/31/22 mg tablets in a dose pack #20 ea (Paxlovid) cyclobenzaprine 10 mg tablet 10 mg PO TID PRN muscle spasm #14 01/15/23 tabs Allergies Allergy/AdvReac Type Severity Reaction Status Date / Time diphenhydramine AdvReac Intermediate Agitated Verified 01/15/23 19:04 lisinopril AdvReac Cough Verified 01/15/23 19:04 Review of Systems Review of Systems Narrative: GENERAL: Denies chills, fatigue, malaise, fever, sweats. HEENT: Denies sinus pain, ear pain, sore throat, difficulty swallowing, dizziness. RESPIRATORY: Denies dyspnea, cough, wheezing, hemoptysis, sputum. CARDIOVASCULAR: Denies chest pain, palpitations, orthopnea, edema, GASTROINTESTINAL: Denies nausea, vomiting, abdominal pain, diarrhea, constipation, melena. : Denies dysuria, frequency, incontinence, hematuria, urinary retention. MUSCULOSKELETAL: See HPI SKIN: Denies rash, skin lesions, or other NEUROLOGIC: Denies weakness, headache, numbness, change in speech, confusion, seizures, incoordination. PSYCHIATRIC: No concerning psychosocial issues. 12 point review of systems is negative except for those stated above Patient History Medical History Abnormal Pap smear of cervix (~1978) Acquired hypothyroidism Anemia (~1966) Cataracts, bilateral (~2019) Chicken pox Chronic kidney disease, stage 3b Colon polyps (~1993) Depression, recurrent (~1984) Essential hypertension Hemorrhoid History of blood clots History of cervical cancer (~1979) History of colon cancer (~1993) History of colon polyps HTN (hypertension) Hyperlipidemia Hypothyroidism (~1999) Kidney disease (~1995) Limp Measles Migraines Mixed hyperlipidemia Mumps Numerous moles Obstructive sleep apnea (adult) (pediatric) Polyneuropathy, unspecified Primary osteoarthritis involving multiple joints Rubella Scoliosis Single kidney Tendonitis of both rotator cuffs Type 2 diabetes mellitus with polyneuropathy Surgical History Anesthesia History of cholecystectomy (~1994) History of colonoscopy History of hand surgery (~2019) History of nephrectomy (~2006) History of parathyroidectomy (~2009) History of tonsillectomy (~1956) History of urostomy S/P colon resection (~1994) S/P colostomy S/P total abdominal hysterectomy (~1977) Family History Father Stroke Mother Cancer Brother Cancer Brother Cancer Sister Cancer Sister Cancer Grandmother Kidney failure Grandfather No problems noted. Grandmother Diabetes mellitus Social History household members: spouse Smoking Status: Former smoker Smoking Status: Former smoker alcohol intake frequency: holidays/special occasions only Substance Use Type: does not use Exam Narrative Exam Narrative: GENERAL: [77] year old patient appears stated age. Well-developed patient, in mild distress. HEAD: Atraumatic. Normocephalic. EYES: Pupils equal round and reactive. Extraocular motions intact. No scleral icterus. No injection or drainage. ENT: Nose without bleeding, purulent drainage. Throat without erythema, tonsillar hypertrophy or exudate. Airway patent. NECK: Trachea midline. No midline bony tenderness, mild reproducible pain on palpation of left paraspinal musculature CARDIOVASCULAR: Regular rate and rhythm without murmurs, gallops, or rubs. RESPIRATORY: Clear to auscultation. Breath sounds equal bilaterally. No wheezes, rales, or rhonchi. GASTROINTESTINAL: Abdomen soft, non-tender, nondistended. EXTREMITIES: Pain on palpation and range of motion at left shoulder, no redness or swelling, no numbness, tingling or weakness, no pain with motion of head and neck, no pain with axial loading. BACK: Nontender without deformity or crepitance. No flank tenderness. NEURO: AOx3. SKIN: No rash or erythema of visible areas Initial Vital Signs Initial Vital Signs: Vital Signs Temperature 99.1 F 01/15/23 18:52 Pulse Rate 83 01/15/23 18:52 Respiratory Rate 15 01/15/23 18:52 Blood Pressure 134/78 01/15/23 18:52 Pulse Oximetry 99 01/15/23 18:52 Oxygen Delivery Method Room Air 01/15/23 18:52 Course Orders Ordered: ED Orders 01/15/23 19:04 XR chest 1V Stat EKG-12 Lead Stat 01/15/23 19:08 Complete Blood Count AUTO DIFF Stat Comprehensive Metabolic Panel Stat D Dimer Stat Lipase Stat Magnesium Stat PTT Partial Thromboplastin Sorin Stat Prothrombin Time INR Stat Troponin & CK Cardiac Panel Stat 01/15/23 21:03 US periph venous up extrem lt Stat Discontinued Medications Aspirin (Aspirin 81 Mg Chew Tab) 324 mg PO NOW ONE Stop: 01/15/23 19:05 Last Admin: 01/15/23 19:21 Dose: Not Given Documented By: SPF Cyclobenzaprine HCl (Cyclobenzaprine 10 Mg Prepack) 1 bottle MISC SEEINSTR ONE Stop: 01/15/23 21:04 Last Admin: 01/15/23 22:47 Dose: 1 bottle Documented By: JACQUES Ketorolac Tromethamine (Ketorolac 30 Mg/Ml Vial) 10 mg IV NOW ONE Stop: 01/15/23 21:04 Last Admin: 01/15/23 21:30 Dose: 10 mg Documented By: JACQUES Vital Signs Vital signs: Vital Signs - 8 hr 01/15/23 19:06 01/15/23 19:06 01/15/23 19:30 Pulse Rate 83 Respiratory Rate 18 Blood Pressure 134/78 183/101 H Pulse Oximetry 98 01/15/23 19:30 01/15/23 20:00 01/15/23 20:00 Pulse Rate 83 77 Respiratory Rate 16 17 Blood Pressure 202/86 H Pulse Oximetry 98 98 01/15/23 20:30 01/15/23 20:30 01/15/23 21:00 Pulse Rate 80 Respiratory Rate 15 Blood Pressure 197/92 H 208/88 H Pulse Oximetry 98 01/15/23 21:00 01/15/23 21:30 01/15/23 21:30 Pulse Rate 85 76 Respiratory Rate 16 19 Blood Pressure 192/84 H Pulse Oximetry 97 99 01/15/23 22:00 01/15/23 22:01 01/15/23 22:01 Pulse Rate 79 82 Respiratory Rate 17 18 Blood Pressure 182/75 H Pulse Oximetry 96 96 01/15/23 22:30 01/15/23 22:38 01/15/23 22:38 Pulse Rate 82 80 Respiratory Rate 22 20 Blood Pressure 143/69 H Pulse Oximetry 97 97 MDM - Chest Pain Lab Data 01/15/23 19:08 01/15/23 19:08 Labs: Lab Results 01/15/23 01/15/23 01/15/23 Range/Units 19:08 19:08 19:08 WBC 7.9 (4.5-11.0) X10^3/uL RBC 4.34 (4.0-5.2) X10^6/uL Hgb 12.8 (12.0-16.0) g/dL Hct 38.1 (36-46) % MCV 87.8 (80-100) fL MCH 29.4 (26-34) PG MCHC 33.5 (30-36) % RDW 13.5 (11.6-14.8) % Plt Count 196 (150-400) X10^3/uL Neut % (Auto) 68.7 (50-75) % Lymph % (Auto) 21.8 L (25-40) % [place] % (Auto) 7.4 (3-14) % Eos % (Auto) 1.6 L (2-4) % Baso % (Auto) 0.5 (0-2) % Neut # (Auto) 5400 (4932-4500) /uL Lymph # (Auto) 1700 (6411-4785) /uL [place] # (Auto) 600 (0-900) /uL Eos # (Auto) 100 (0-450) /uL Baso # (Auto) 0 (0-100) /uL PT 10.2 (10.1-12.7) SECONDS INR 0.9 (0.9-1.3) APTT 23 L (26-36) SECONDS D-Dimer (<500) ng/ml Sodium 140 (137-145) mmol/L Potassium 4.4 (3.4-5.1) mmol/L Chloride 107 (98-107) mmol/L Carbon Dioxide 23 (22-32) mmol/L BUN 26 H (7-17) mg/dL Creatinine 1.05 H (0.52-1.04) mg/dL Estimated GFR 55 L (>60) mL/min BUN/Creatinine Ratio 24.8 H (6-22) Glucose 116 H (80-110) mg/dL Calcium 10.1 (8.4-10.2) mg/dL Magnesium 1.7 (1.6-2.3) mg/dL Total Bilirubin 0.4 (0.2-1.3) mg/dL AST 21 (14-36) IU/L ALT 20 (<35) IU/L Alkaline Phosphatase 60 (38-126) U/L Total Creatine Kinase 54 (30-135) U/L Troponin I < 0.012 (0.01-0.034) ng/mL Total Protein 7.9 (6.3-8.2) g/dL Albumin 4.5 (3.5-5.0) g/dL Globulin 3.4 (1.7-4.1) g/dL Albumin/Globulin Ratio 1.3 (1.0-2.8) Lipase 246 (23-300) U/L 01/15/23 Range/Units 19:08 WBC (4.5-11.0) X10^3/uL RBC (4.0-5.2) X10^6/uL Hgb (12.0-16.0) g/dL Hct (36-46) % MCV (80-100) fL MCH (26-34) PG MCHC (30-36) % RDW (11.6-14.8) % Plt Count (150-400) X10^3/uL Neut % (Auto) (50-75) % Lymph % (Auto) (25-40) % [place] % (Auto) (3-14) % Eos % (Auto) (2-4) % Baso % (Auto) (0-2) % Neut # (Auto) (9844-4606) /uL Lymph # (Auto) (1655-0388) /uL [place] # (Auto) (0-900) /uL Eos # (Auto) (0-450) /uL Baso # (Auto) (0-100) /uL PT (10.1-12.7) SECONDS INR (0.9-1.3) APTT (26-36) SECONDS D-Dimer 551 H (<500) ng/ml Sodium (137-145) mmol/L Potassium (3.4-5.1) mmol/L Chloride (98-107) mmol/L Carbon Dioxide (22-32) mmol/L BUN (7-17) mg/dL Creatinine (0.52-1.04) mg/dL Estimated GFR (>60) mL/min BUN/Creatinine Ratio (6-22) Glucose (80-110) mg/dL Calcium (8.4-10.2) mg/dL Magnesium (1.6-2.3) mg/dL Total Bilirubin (0.2-1.3) mg/dL AST (14-36) IU/L ALT (<35) IU/L Alkaline Phosphatase (38-126) U/L Total Creatine Kinase (30-135) U/L Troponin I (0.01-0.034) ng/mL Total Protein (6.3-8.2) g/dL Albumin (3.5-5.0) g/dL Globulin (1.7-4.1) g/dL Albumin/Globulin Ratio (1.0-2.8) Lipase (23-300) U/L MDM Narrative Medical decision making narrative: [77] year old patient presents with left arm pain Multiple etiologies for patient's symptoms considered including, but not limited to: [Cardiac ischemia versus vascular abnormality versus musculoskeletal versus DVT versus cellulitis versus other] Prior Charts reviewed in our EMR Primary Historian: patient Labs reviewed and interpreted by myself: No leukocytosis or left shift, no signs of anemia, D-dimer below age corrected cutoff, primarily electrolytes and renal function at her baseline, troponin negative Imaging reviewed: Chest x-ray without acute process, peripheral ultrasound negative for DVT Patient's history and physical exam are reassuring. She is had about 1 week of gradually worsening left upper extremity pain but denies any obvious overuse or injury. Her pain is very reproducible. She has no chest pain or shortness of breath, no exertional symptoms. Her pain is worse with motion and improves with rest. There is no redness or swelling, no fever or chills. No numbness or tingling. Multiple diagnoses considered as noted above. Cardiac ischemia thought extremely unlikely given lack of exertional symptoms, reproducibility of pain, negative troponin, lack of cardiac equivalent, no ischemic EKG change. Pulmonary embolism considered but thought unlikely given D-dimer below age corrected cutoff. Cellulitis and DVT considered but thought unlikely given warmth, erythema, swelling and negative ultrasound. Patient does experience some improvement after Flexeril, Toradol and a sling but certainly not complete improvement. Encouraged to follow up with her provider, prescription sent in her behalf to her preferred pharmacy and return precautions discussed. Findings and discharge diagnosis discussed with patient/family followed by verbalization of understanding Return precautions discussed with patient/family whom verbalize understanding of diagnosis and plan Discharge Plan Departure Patient Disposition: Home Clinical Impression: Arm pain, left Instructions: DI for Arm Pain Activity Restrictions/Additional Instructions: *You have been diagnosed with [left arm pain. As we discussed your history and physical exam are very reassuring, as are labs, EKG and imaging. There is no evidence of heart attack, blood clot, infectious process, this is most likely an inflammatory or spastic condition of your arm that should improve with the use of medications that we discussed *What to do: *Please continue to take your regular medications as directed. [ x] New medication prescriptions sent to your pharmacy: [ [facility]] [ ] New medication written as a paper prescription [ ] No new medications given *Please follow up with your primary care provider in 2-3 days, call for an appointment. Let them know you were seen in the Emergency Department and that we ask that you be seen in follow up. We will electronically transmit a record of today's note if your PCP is in our system *If you do not have a primary care provider please contact the [facility] Resource line at [phone]. They will ask some questions about your medical history and help get you set up with a doctor in the community. *Return to Emergency Department if you should have any new, worsening or concerning symptoms, such as [fever greater than 101 F, shaking chills, worsening pain, persistent vomiting or other bothersome symptoms] Prescriptions: New cyclobenzaprine 10 mg tablet 10 mg PO TID PRN (Reason: muscle spasm) Qty: 14 0RF No Action losartan 50 mg tablet 50 mg PO DAILY Qty: 90 3RF levothyroxine 125 mcg tablet 125 mcg PO DAILY Qty: 90 3RF gabapentin 100 mg capsule 500 mg PO DAILY Qty: 450 3RF Rx Instructions: 1 tablet at am, 1 tablet at pm, 3 tablet at bedtimes. estradiol 0.01 % (0.1 mg/gram) cream 1 g vaginal 3XW Qty: 42.5 12RF Rx Instructions: Apply 1 g PV hs x7 days, then PV hs 3 nights weekly rosuvastatin 20 mg tablet 20 mg PO DAILY Qty: 90 3RF metformin 500 mg tablet 1,000 mg PO BID Qty: 360 3RF sertraline 50 mg tablet 50 mg PO QPM Qty: 90 3RF betamethasone dipropionate 0.05 % cream 1 applic topical BID PRN (Reason: skin irritation) acetaminophen [Tylenol Extra Strength] 500 mg tablet 500 mg PO TID oxycodone-acetaminophen [Percocet] 5-325 mg tablet 1 tab PO Q6H PRN (Reason: pain) Qty: 10 0RF insulin degludec 100 unit/mL (3 mL) insulin pen 12 unit subcut QPM Qty: 15 3RF Paxlovid 150-100 mg tablets,dose pack See Rx Instructions PO PER PKG DIR Qty: 20 0RF Rx Instructions: 1 tablet of each twice daily x 5 days aspirin 81 mg Tablet,Delayed Release (Dr/Ec) 81 mg PO DAILY ascorbic acid (vitamin C) [Vitamin C] 500 mg Tablet 500 mg PO DAILY cholecalciferol (vitamin D3) [Vitamin D3] 50 mcg (2,000 unit) Capsule 50 mcg PO DAILY Referrals: Karlos Avila MD [Primary Care Provider] - Stand Alone Forms: Patient Portal/API
[2023-01-15 19:18] LABS: Add Manual Diff / Slide Review NO; Basophils Absolute Auto 0 /uL (0-100); Basophils Percent Auto 0.5 % (0-2); Eosinophils Absolute Auto 100 /uL (0-450); Eosinophils Percent Auto 1.6 % (2-4); Hematocrit 38.1 % (36-46); Hemoglobin 12.8 g/dL (12.0-16.0); Lymphocytes Absolute Auto 1700 /uL (1100-4500); Lymphocytes Percent Auto 21.8 % (25-40); Mean Corpuscular HGB Conc 33.5 % (30-36); Mean Corpuscular Hemoglobin 29.4 PG (26-34); Mean Corpuscular Volume 87.8 fL (80-100); Monocytes Absolute Auto 600 /uL (0-900); Monocytes Percent Auto 7.4 % (3-14); Neutrophils Absolute Auto 5400 /uL (1500-7000); Neutrophils Percent Auto 68.7 % (50-75); Platelet Count 196 X10^3/uL (150-400); Red Blood Cell Count 4.34 X10^6/uL (4.0-5.2); Red Cell Distribution Width 13.5 % (11.6-14.8); White Blood Cell Count 7.9 X10^3/uL (4.5-11.0)
[2023-01-15 19:25] LABS: INR 0.9 (0.9-1.3); Prothrombin Time 10.2 SECONDS (10.1-12.7)
--- NOTE | 2023-01-15 19:25 | PC.NURSE ---
Patient has history of colon cancer and previously had 2x ports. She reports having one kidney and that it doesnt function well; provider made aware. Patient denies shortness of breath, dizzy, or lightheaded. She has constant 6/10pain in her left chest/left arm.
[2023-01-15 19:28] LABS: PTT Partial Thromboplastin Tim 23 SECONDS (26-36)
[2023-01-15 19:29] LABS: Alanine Aminotransferase 20 IU/L (<35); Albumin 4.5 g/dL (3.5-5.0); Albumin Globulin Ratio 1.3 (1.0-2.8); Alkaline Phosphatase 60 U/L (38-126); Aspartate Aminotransferase 21 IU/L (14-36); BUN Creatinine Ratio 24.8 (6-22); Bilirubin Total 0.4 mg/dL (0.2-1.3); Blood Urea Nitrogen 26 mg/dL (7-17); Calcium 10.1 mg/dL (8.4-10.2); Carbon Dioxide 23 mmol/L (22-32); Chloride 107 mmol/L (98-107); Creatine Kinase 54 U/L (30-135); Estimated Glomerular Filt Rate 55 mL/min (>60); Globulin 3.4 g/dL (1.7-4.1); Glucose 116 mg/dL (80-110); HEMOLYSIS < 15 (0-50); Lipase 246 U/L (23-300); Magnesium 1.7 mg/dL (1.6-2.3); Potassium 4.4 mmol/L (3.4-5.1); Sodium 140 mmol/L (137-145); Total Protein 7.9 g/dL (6.3-8.2)
[2023-01-15 19:35] LABS: D Dimer 551 ng/ml (<500)
[2023-01-15 19:40] LABS: Troponin I < 0.012 ng/mL (0.01-0.034)
--- NOTE | 2023-01-15 21:03 | DI.US.S_ITS ---
PROCEDURE: US PERIPH VENOUS UP EXTREM LT INDICATIONS: LEFT POSTERIOR ARM PAIN TECHNIQUE: Real-time imaging, as well as color and pulse Doppler interrogation, was performed of the left upper extremity deep veins from the inferior neck to the antecubital fossa. COMPARISON: None. FINDINGS: The internal jugular vein, visualized portions of the subclavian vein, axillary, and brachial veins are free of intraluminal thrombus. Where physically possible, the veins are normally compressible. Color and pulse Doppler demonstrate normal intraluminal flow, with expected phasicity and pulsatility. Additional scanning of the cephalic and basilic veins of the superficial system demonstrates normal compressibility, without thrombus. IMPRESSION: 1. No evidence of deep venous thrombosis in the left upper extremity. Dictated by: Mehdi Benavidez M.D. on 01/15/2023 at 23:49 Approved by: Mehdi Benavidez M.D. on 01/15/2023 at 23:50
[2023-01-15] MEDS: KETOROLAC 30 MG/ML VIAL 10 MG IV (21:30)
[2023-01-15] MEDS: CYCLOBENZAPRINE 10 MG PREPACK 1 BOTTLE MISC (22:47)
== END 2023-01-15 23:01 | disposition home or self-care (01) ==
PROVIDERS: Emergency Provider Emergency Medicine; Family Provider Internal Medicine; PCP Internal Medicine
DX: M79.602 Pain in left arm (principal); R07.9 Chest pain, unspecified; Z86.16 Personal history of COVID-19
CPT/HCPCS: 36415; 71045; 80053; 82550; 83690; 83735; 84484; 85025; 85379; 85610; 85730; 93005; 93971; 96374; 99284; J1885

== ENCOUNTER → 2023-01-21 07:16 | Outpatient (CLI) | payer MEDICARE, OTHER, SELFPAY ==
[2023-01-21 07:54] LABS: Add Manual Diff / Slide Review NO; Basophils Absolute Auto 0 /uL (0-100); Basophils Percent Auto 0.5 % (0-2); Eosinophils Absolute Auto 100 /uL (0-450); Eosinophils Percent Auto 0.7 % (2-4); Hematocrit 35.7 % (36-46); Lymphocytes Absolute Auto 900 /uL (1100-4500); Lymphocytes Percent Auto 9.2 % (25-40); Mean Corpuscular HGB Conc 33.7 % (30-36); Mean Corpuscular Hemoglobin 29.7 PG (26-34); Monocytes Absolute Auto 700 /uL (0-900); Monocytes Percent Auto 7.2 % (3-14); Neutrophils Absolute Auto 7600 /uL (1500-7000); Neutrophils Percent Auto 82.4 % (50-75); Platelet Count 189 X10^3/uL (150-400); Red Blood Cell Count 4.06 X10^6/uL (4.0-5.2); Red Cell Distribution Width 13.4 % (11.6-14.8); White Blood Cell Count 9.3 X10^3/uL (4.5-11.0)
[2023-01-21 08:09] LABS: Hemoglobin A1C% w Est Avg Glu 6.9 % (4.0-6.0)
[2023-01-21 08:11] LABS: Alanine Aminotransferase 16 IU/L (<35); Albumin 4.1 g/dL (3.5-5.0); Albumin Globulin Ratio 1.3 (1.0-2.8); Alkaline Phosphatase 55 U/L (38-126); Aspartate Aminotransferase 19 IU/L (14-36); BUN Creatinine Ratio 17.5 (6-22); Bilirubin Total 0.4 mg/dL (0.2-1.3); Blood Urea Nitrogen 21 mg/dL (7-17); Calcium 9.9 mg/dL (8.4-10.2); Carbon Dioxide 24 mmol/L (22-32); Chloride 103 mmol/L (98-107); Estimated Glomerular Filt Rate 47 mL/min (>60); Globulin 3.1 g/dL (1.7-4.1); Glucose 247 mg/dL (80-110); HEMOLYSIS < 15 (0-50); Potassium 4.2 mmol/L (3.4-5.1); Sodium 136 mmol/L (137-145); Total Protein 7.2 g/dL (6.3-8.2)
[2023-01-21 08:26] LABS: BUN Creatinine Ratio 19.3 (6-22); Blood Urea Nitrogen 21 mg/dL (7-17); Calcium 9.9 mg/dL (8.4-10.2); Carbon Dioxide 22 mmol/L (22-32); Chloride 103 mmol/L (98-107); Cholesterol 130 mg/dL (140-199); Estimated Glomerular Filt Rate 53 mL/min (>60); Glucose 241 mg/dL (80-110); HDL Cholesterol 49 mg/dL (40-60); HEMOLYSIS 18 (0-50); LDL Cholesterol Calculated 52 mg/dL (<100); Potassium 4.4 mmol/L (3.4-5.1); Sodium 135 mmol/L (137-145); Triglycerides 146 mg/dL (35-150)
[2023-01-21 08:42] LABS: Carcinoembryonic Antigen 4.4 ng/mL (0.1-3.0)
[2023-01-21 09:01] LABS: C-Reactive Protein Quant 4.6 mg/dL (<1.0)
[2023-01-21 10:47] LABS: Erythrocyte Sedimentation Rate 66 MM/HR (0-20)
== END ==
PROVIDERS: Internal Medicine Medical Oncology; Family Provider Internal Medicine; PCP Internal Medicine; Referring Provider Internal Medicine; Visit Provider Internal Medicine
DX: E11.42 Type 2 diabetes mellitus with diabetic polyneuropathy (principal); Z85.038 Personal history of other malignant neoplasm of large intestine; M35.3 Polymyalgia rheumatica; E78.2 Mixed hyperlipidemia
CPT/HCPCS: 36415; 80048; 80053; 80061; 82378; 83036; 85025; 85651; 86140

== ENCOUNTER → 2023-06-23 13:42 | Outpatient (CLI) | payer MEDICARE, OTHER, SELFPAY ==
[2023-06-23 15:00] LABS: BUN Creatinine Ratio 19.5 (6-22); Blood Urea Nitrogen 24 mg/dL (7-17); C-Reactive Protein Quant 0.5 mg/dL (<1.0); Carbon Dioxide 27 mmol/L (22-32); Chloride 103 mmol/L (98-107); Estimated Glomerular Filt Rate 46 mL/min (>60); Glucose 345 mg/dL (80-110); HEMOLYSIS < 15 (0-50); Sodium 135 mmol/L (137-145)
[2023-06-23 15:02] LABS: Erythrocyte Sedimentation Rate 9 MM/HR (0-20)
[2023-06-23 15:03] LABS: Hemoglobin A1C% w Est Avg Glu 10.7 % (4.0-6.0)
== END ==
PROVIDERS: Family Provider Internal Medicine; PCP Internal Medicine; Referring Provider Internal Medicine; Visit Provider Internal Medicine
DX: E11.42 Type 2 diabetes mellitus with diabetic polyneuropathy (principal); M35.3 Polymyalgia rheumatica
CPT/HCPCS: 36415; 80048; 83036; 85651; 86140

== ENCOUNTER → 2023-09-23 14:03 | Outpatient (CLI) | payer MEDICARE, OTHER, SELFPAY ==
[2023-09-23 15:32] LABS: Hemoglobin A1C% w Est Avg Glu 9.2 % (4.0-6.0)
[2023-09-23 15:47] LABS: BUN Creatinine Ratio 17.7 (6-22); Blood Urea Nitrogen 29 mg/dL (7-17); Calcium 10.5 mg/dL (8.4-10.2); Carbon Dioxide 26 mmol/L (22-32); Chloride 106 mmol/L (98-107); Estimated Glomerular Filt Rate 32 mL/min (>60); Glucose 257 mg/dL (80-110); HEMOLYSIS < 15 (0-50); Sodium 138 mmol/L (137-145)
[2023-09-23 15:48] LABS: Potassium 5.4 mmol/L (3.4-5.1)
[2023-09-23 16:15] LABS: TSH w/ Reflex to FT4 0.35 uIU/mL (0.47-4.68)
[2023-09-23 17:59] LABS: Creatinine Urine Random 181.88 mg/dL
[2023-09-23 18:23] LABS: Microalbumin Urine Random 35.4 mg/dL (0-1.6)
[2023-09-23 19:54] LABS: Free T4, Direct Thyroxine 1.44 ng/dL (0.78-2.19)
== END ==
PROVIDERS: Family Provider Internal Medicine; PCP Internal Medicine; Referring Provider Internal Medicine; Visit Provider Internal Medicine
DX: E11.42 Type 2 diabetes mellitus with diabetic polyneuropathy (principal); N18.32 Chronic kidney disease, stage 3b; E03.9 Hypothyroidism, unspecified
CPT/HCPCS: 36415; 80048; 82043; 82570; 83036; 84439; 84443

== ENCOUNTER → 2023-10-21 11:50 | Outpatient (CLI) | payer MEDICARE, OTHER, SELFPAY ==
--- NOTE | 2023-10-21 11:52 | DI.MG.S_ITS ---
BILATERAL DIGITAL SCREENING MAMMOGRAM 3D/2D WITH CAD: 10/21/2023 CLINICAL: Routine screening. Comparison is made to exams dated: 10/08/2022 mammogram, 10/01/2021 mammogram, 06/09/2020 mammogram, and 05/23/2019 mammogram - [facility]. There are scattered areas of fibroglandular density in both breasts (category b / 25%-50% glandular tissue). Current study was also evaluated with a Computer Aided Detection (CAD) system. There are benign calcifications in both breasts. There also are benign post operative findings in both breasts. No significant masses, calcifications, or other findings are seen in either breast. There has been no significant interval change. IMPRESSION: BENIGN There is no mammographic evidence of malignancy. A 1 year screening mammogram is recommended. Based on the Tyrer Cuzick model (a risk assessment model) the patient's lifetime risk is 1.6% and her 10 year risk is 1.6%. According to the ACR, ACS, and NCCN guidelines, an annual breast MRI exam along with mammogram is recommended if the patient's lifetime risk is 20% or greater. This exam was interpreted at Station ID: [id number]. NOTE: For mammograms, a report in lay terms will be sent to the patient. Approximately 15% of breast malignancies will not be visualized mammographically. In the management of a palpable breast mass, a negative mammogram must not discourage biopsy of a clinically suspicious lesion. Electronically Signed By: Víctor king/idan:10/21/2023 13:15:03 letter sent: Normal Exam ACR BI-RADS Category 2: Benign Finding(s) 3342F
== END ==
PROVIDERS: Family Provider Internal Medicine; PCP Internal Medicine; Referring Provider Internal Medicine; Visit Provider Internal Medicine
DX: Z12.31 Encounter for screening mammogram for malignant neoplasm of breast (principal); R92.323 Mammographic fibroglandular density, bilateral breasts
CPT/HCPCS: 77063; 77067

== ENCOUNTER → 2023-12-01 12:40 | Outpatient (CLI) | payer MEDICARE, OTHER, SELFPAY ==
--- NOTE | 2024-01-13 15:13 | DIAB.MNT ---
Initial Diabetes Medical Nutrition Therapy Assessment Name: Madyson Ladd Date: 12/01/23 Time: 120-215p Dx: Type II Diabetes Provider: [place] Preferred Learning Style: Watching/Reading Madyson presents for initial visit with spouse, Tomer. Endorses PMH of T2DM for 20 years, FH with paternal grandmother. Interested in CGM. Endorses PMH of one kidney and no bladder after colorectal cancer tx. Up to date on dental and eye. On prednisone tx, which impacts BG management. Has increased insulin from 12u to 22u to help manage. States she would like to learn more about problem solving for BG, nutrition, and reducing complication risks. Diet Recall: 7-9a: coffee, cereal x 1c with milk and berries OR egg and toast OR yogurt and granola 12-1p: leftovers OR grilled cheese with chips sn: cookie x 1 5-6p: 1c pasta or 1/2c rice or potatoes and meat with veggies 6-7p: dessert: slice pie or cake or 1c ice cream water x 32-48oz Diet coke 12oz iced tea unsweet Anthropometrics: Ht: 64 Wt: 179# Physical Activity: Gardening daily Self-Monitoring Blood Glucose: Checking FBG. some elevations, which seem more likely when checking earlier in her day. Most under 140mg/dl. Date Pre Post Pre Post Pre Post HS 11/25 115 11/26 138 11/28 160 4am 11/28 118 930am 11/29 102 11/30 134 Diabetes Medications: 1000mg Metformin BID 22u Degludec HS Pertinent Labs: HgA1c: 10.7% 06/2023 9.2% 09/2023 Past Medical History: (Last Reviewed 10/01/23 @ 06:07 by Karlos Avila MD) Abnormal Pap smear of cervix (~1978) Acquired hypothyroidism Anemia (~1966) Cataracts, bilateral (~2019) Chicken pox Child Chronic kidney disease, stage 3b Colon polyps (~1993) Depression, recurrent (~1984) Essential hypertension Hemorrhoid History of blood clots History of cervical cancer (~1979) History of colon cancer (~1993) History of colon polyps HTN (hypertension) Hyperlipidemia Hypothyroidism (~1999) Kidney disease (~1995) Limp Left hip was injured 25 years ago or more. Also have bad balance. Measles Child Migraines Mixed hyperlipidemia Mumps Child Numerous moles Obstructive sleep apnea (adult) (pediatric) Polymyalgia rheumatica Polyneuropathy, unspecified Primary osteoarthritis involving multiple joints Rubella Scoliosis Single kidney Type 2 diabetes mellitus with polyneuropathy Nutrition Rx: Carbohydrates: Meal:30-45g Snack:15-30g Nutrition Diagnosis: - Nutrition and food related knowledge deficit r/t no previous MNT aeb pt report - Excessive CHO intake r/t meal timing between dinner and dessert aeb diet recall Intervention: This participant was very receptive. Provided appropriate educational handouts. Discussed the following topics: Completed intake assessment. Discussed barriers to care. Pathophysiology of T2DM HgA1c, its correlation to blood glucose numbers, and rationale for goal Importance of self-monitoring, how often, and when to check. Suggested checking at different times to evaluate meals Potential for CGM Plate Method, impact of macronutrients on blood sugar, meal timing, carbohydrate counting, pairing macronutrients and spreading out carbohydrates for better blood glucose management Recommended servings for carbohydrates at meals and snacks Heart health nutrition Brainstormed appropriate meal plan based on food preferences Role of physical activity and following provider guidelines for safety Created SMART goals for patient self-care and success. Goals: Add protein to breakfast Keep lunch to half sandwich if having chips Spread out CHO q 3-4 hours Follow-up: CIPRIANO HARRISON follow-up in 2-3 weeks. Downloaded CGM apps for sample next visit. Cindy Navarro RDN, HUNTER Certified Diabetes Care and Exchange Underwriting Consultant P: [phone] Thank you for this referral
== END ==
PROVIDERS: Family Provider Internal Medicine; PCP Internal Medicine; Referring Provider Internal Medicine
DX: E11.9 Type 2 diabetes mellitus without complications (principal); Z71.3 Dietary counseling and surveillance; Z79.4 Long term (current) use of insulin; Z79.84 Long term (current) use of oral hypoglycemic drugs
CPT/HCPCS: 97802

== ENCOUNTER → 2023-12-31 13:53 | Outpatient (CLI) | payer MEDICARE, OTHER, SELFPAY ==
[2023-12-31 15:37] LABS: Hemoglobin A1C% w Est Avg Glu 7.9 % (4.0-6.0)
[2023-12-31 18:14] LABS: TSH w/ Reflex to FT4 0.09 uIU/mL (0.47-4.68)
[2023-12-31 18:50] LABS: Free T4, Direct Thyroxine 1.45 ng/dL (0.78-2.19)
[2023-12-31 21:08] LABS: Aspartate Aminotransferase 26 IU/L (14-36); BUN Creatinine Ratio 19.8 (6-22); Blood Urea Nitrogen 21 mg/dL (7-17); Calcium 9.6 mg/dL (8.4-10.2); Carbon Dioxide 21 mmol/L (22-32); Chloride 106 mmol/L (98-107); Cholesterol 121 mg/dL (140-199); Estimated Glomerular Filt Rate 54 mL/min (>60); Glucose 190 mg/dL (80-110); HDL Cholesterol 52 mg/dL (40-60); HEMOLYSIS 15 (0-50); LDL Cholesterol Calculated 26 mg/dL (<100); Potassium 4.5 mmol/L (3.4-5.1); Sodium 136 mmol/L (137-145); Triglycerides 213 mg/dL (35-150)
[2023-12-31 21:39] LABS: Carcinoembryonic Antigen 5.2 ng/mL (0.1-3.0)
== END ==
PROVIDERS: Family Provider Internal Medicine; PCP Internal Medicine; Referring Provider Internal Medicine; Visit Provider Internal Medicine
DX: E11.42 Type 2 diabetes mellitus with diabetic polyneuropathy (principal); Z85.038 Personal history of other malignant neoplasm of large intestine; N18.32 Chronic kidney disease, stage 3b; E03.9 Hypothyroidism, unspecified
CPT/HCPCS: 36415; 80048; 80061; 82378; 83036; 84439; 84443; 84450

== ENCOUNTER → 2024-01-13 14:39 | Outpatient (CLI) | payer MEDICARE, OTHER, SELFPAY ==
--- NOTE | 2024-01-13 17:18 | DIAB.FU ---
Follow-up Diabetes Education Assessment Name: Madyson Ladd Date: 01/13/24 Time: 3-340p Dx: Type II Diabetes Madyson presents for follow-up visit with spouse, Tomer. Titrating down prednisone. Has reduced insulin by 1u per report. Not checking BG at this time. No hypoglycemia s/s. Endorses difficulty with evening eating and dinner <3 hours from HS snack/dessert. Improved hgA1c, which she attributes to increases/decreases in prednisone tx . Added protein to breakfast with eggs, cheese or breakfast meat. Reduced carb portions at lunch. Anthropometrics: Ht: 64 Wt: 179# Physical Activity: Gardening daily reported last visit. Self-Monitoring Blood Glucose: None recently. Placed CGM sample today. Diabetes Medications: 1000mg Metformin BID 21u Degludec HS Pertinent Labs: HgA1c: 10.7% 06/2023 9.2% 09/2023 7.9% 12/2023 Past Medical History: (Last Reviewed 10/01/23 @ 06:07 by Karlos Avila MD) Abnormal Pap smear of cervix (~1978) Acquired hypothyroidism Anemia (~1966) Cataracts, bilateral (~2019) Chicken pox Child Chronic kidney disease, stage 3b Colon polyps (~1993) Depression, recurrent (~1984) Essential hypertension Hemorrhoid History of blood clots History of cervical cancer (~1979) History of colon cancer (~1993) History of colon polyps HTN (hypertension) Hyperlipidemia Hypothyroidism (~1999) Kidney disease (~1995) Limp Left hip was injured 25 years ago or more. Also have bad balance. 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 Provided appropriate educational handouts. Discussed the following topics: CGM Sample Reviewed CGM use and equipment Discussed when to check blood sugars using finger stick Reviewed high and low blood sugar signs/symptoms Provided education for self-administration of CGM placement Educated patient on alarm settings Discussed equipment disposal Review of meal/snack timing and impact on BG Created SMART goals for patient self-care and success. Goals: Add protein to breakfast- met Keep lunch to half sandwich if having chips- met Spread out CHO q 3-4 hours- in progress Wear CGm x 10 days- new Message RD if wanting to start CGm ordering process- new Follow-up: CIPRIANO HARRISON follow-up in 2-3 weeks Cindy Navarro RDN, HUNTER Certified Diabetes Care and Postal Inspector P: [phone] Thank you for this referral
== END ==
PROVIDERS: Family Provider Internal Medicine; PCP Internal Medicine; Referring Provider Internal Medicine
DX: Z79.84 Long term (current) use of oral hypoglycemic drugs (principal); Z79.4 Long term (current) use of insulin; E11.42 Type 2 diabetes mellitus with diabetic polyneuropathy
CPT/HCPCS: G0108

== ENCOUNTER → 2024-02-02 10:47 | Outpatient (CLI) | payer MEDICARE, OTHER, SELFPAY ==
--- NOTE | 2024-02-02 11:48 | DIAB.MNTFU ---
Follow-up Diabetes Medical Nutrition Therapy Assessment Name: Madyson Ladd Date: 02/02/24 Time: Dx: Type II Diabetes Madyson presents for follow-up visit with spouse, Tomer. Titrating down prednisone 1mg per month, currently on 4mg and started on 10mg. Does not anticipate that she will need this treatment again in the future, but unclear at this time. If she does, she may benefit from mealtime insulin to help manage these elevations while on steroid tx. CGM indicates significant elevations at lunch and dinner. Reports cutting most carbs at dinner, no potatoes, rice or bread. Does endorse a cup of ice cream right after dinner. lunch seems to range from 45-60g+ with half sandwich, fruit +/- chips. Takes a nap in the afternoon, may be increased fatigue with elevated BG in the afternoon. Some concern for elevations with kidney etiology, CKD and 1 kidney. GFR and cr were significantly impacted when hgA1c was in the 9% range. Much improved with recent labs. GFR: 58 Cr: 1.06 HgA1c: 7.9% States PCP has mentioned Jaridance in the past, however was too expensive. Considering change in insurance plan next month. May benefit from consideration of SGLT2i if provider agrees. Anthropometrics: Ht: 64 Wt: 179# Physical Activity: Gardening daily reported last visit. Stays busy in the morning with chores. Less active in the afternoon. Walking is a barrier with limp reported. Does like chair yoga. Self-Monitoring Blood Glucose: CGM results indicate <70% time in range. CGM rx process has been started. RD has reached out to [facility] to see progress. TIR: 12% very high 34% high 54% in range 0% low avmg/dl std dev: 58 mg/dl variation: 32.4% Diabetes Medications: 1000mg Metformin BID 21u Degludec HS Pertinent Labs: HgA1c: 10.7% 06/2023 9.2% 09/2023 7.9% 12/2023 Past Medical History: (Last Reviewed 10/01/23 @ 06:07 by Karlos Avila MD) Abnormal Pap smear of cervix (~1978) Acquired hypothyroidism Anemia (~1966) Cataracts, bilateral (~2019) Chicken pox Child Chronic kidney disease, stage 3b Colon polyps (~1993) Depression, recurrent (~1984) Essential hypertension Hemorrhoid History of blood clots History of cervical cancer (~1979) History of colon cancer (~1993) History of colon polyps HTN (hypertension) Hyperlipidemia Hypothyroidism (~1999) Kidney disease (~1995) Limp Left hip was injured 25 years ago or more. Also have bad balance. 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 Provided appropriate educational handouts. Discussed the following topics: BG review and trends diet recall for lunch and dinner and recs for adjustments Medication options potentially for elevations now and in the future Jaridance? Mealtime insulin for prednisone tx. CGM process for acquisition physical activity and impact on glucose Created SMART goals for patient self-care and success. Goals: Spread out CHO q 3-4 hours- improved Wear CGm x 10 days- met Message RD if wanting to start CGm ordering process- met Try Chair yoga- new Choose handful of chips or half fruit with lunch- new Be active in the afternoon- new Check insurance plans for SGLT2i- new Follow-up: CIPRIANO HARRISON follow-up after she acquires her CGM. Is requesting help with placement of personal device. Hoping BG reduce over the time that she is reducing prednisone tx. Will schedule f/u after she receives personal CGM in the next month hopefully. Cindy Navarro RDN, HUNTER Certified Diabetes Care and Newspaper Columnist P: [phone] Thank you for this referral
== END ==
LOC: DIET 10:48
PROVIDERS: Family Provider Internal Medicine; PCP Internal Medicine; Referring Provider Internal Medicine
DX: E11.42 Type 2 diabetes mellitus with diabetic polyneuropathy (principal); Z71.3 Dietary counseling and surveillance; Z79.84 Long term (current) use of oral hypoglycemic drugs; Z79.4 Long term (current) use of insulin
CPT/HCPCS: 97803

== ENCOUNTER → 2024-03-11 09:23 | Outpatient (CLI) | payer MEDICARE, OTHER, SELFPAY ==
--- NOTE | 2024-03-11 11:27 | DIAB.FU ---
Follow-up Diabetes Education Assessment: Personal CGM Name: Madyson Ladd Date: 03/11/24 Time: 930-10a Dx: Type II Diabetes Madyson presents for follow-up visit with spouse, Tomer. She brought her personal CGM equipment for instruction on placement. Did not discuss prednisone dose this visit. lunch seems to range from 45-60g+ with half sandwich, fruit +/- chips last visit-- has reduced since that time. Takes a nap in the afternoon, may be increased fatigue with elevated BG in the afternoon. has not been able to be more active during this time. Some concern for elevations with kidney etiology, CKD and 1 kidney. GFR and cr were significantly impacted when hgA1c was in the 9% range. Much improved with recent labs. GFR: 58 Cr: 1.06 HgA1c: 7.9% States PCP has mentioned Jaridance in the past, however was too expensive. Considering change in insurance plan. May benefit from consideration of SGLT2i if provider agrees. Physical Activity: signed up for chair yoga Self-Monitoring Blood Glucose: Directed her in self placement of new CGM personal sensor Last TIR: 12% very high 34% high 54% in range 0% low avmg/dl std dev: 58 mg/dl variation: 32.4% Diabetes Medications: 1000mg Metformin BID 21u Degludec HS Pertinent Labs: HgA1c: 10.7% 06/2023 9.2% 09/2023 7.9% 12/2023 Past Medical History: (Last Reviewed 10/01/23 @ 06:07 by Karlos Avila MD) Abnormal Pap smear of cervix (~1978) Acquired hypothyroidism Anemia (~1966) Cataracts, bilateral (~2019) Chicken pox Child Chronic kidney disease, stage 3b Colon polyps (~1993) Depression, recurrent (~1984) Essential hypertension Hemorrhoid History of blood clots History of cervical cancer (~1979) History of colon cancer (~1993) History of colon polyps HTN (hypertension) Hyperlipidemia Hypothyroidism (~1999) Kidney disease (~1995) Limp Left hip was injured 25 years ago or more. Also have bad balance. 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 Provided appropriate educational handouts. Discussed the following topics: Reviewed CGM use and equipment Discussed when to check blood sugars using finger stick Provided education for self-administration of CGM placement Educated patient on alarm settings Discussed when to replace equipment and disposal Reviewed goals and potential for SGLT2i Goals: Try Chair yoga- in progress Choose handful of chips or half fruit with lunch- met Be active in the afternoon- not met Check insurance plans for SGLT2i- cont Place next personal CGM in 10.5 days- new Follow-up: CIPRIANO HARRISON follow-up in 4 weeks. Cindy Navarro RDN, [place] [facility]INA[facility] Certified Diabetes Care and Cone Runner P: [phone] Thank you for this referral
== END ==
PROVIDERS: Family Provider Internal Medicine; PCP Internal Medicine; Referring Provider Internal Medicine
DX: E11.42 Type 2 diabetes mellitus with diabetic polyneuropathy (principal); Z71.3 Dietary counseling and surveillance; Z79.84 Long term (current) use of oral hypoglycemic drugs; Z79.4 Long term (current) use of insulin
CPT/HCPCS: 95249

== ENCOUNTER → 2024-04-05 09:57 | Outpatient (CLI) | payer MEDICARE, OTHER, SELFPAY ==
--- NOTE | 2024-04-05 10:02 | DIAB.FU ---
Follow-up Diabetes Education Assessment Name: Madyson Ladd Date: 04/05/24 Time: a Dx: Type II Diabetes Madyson presents for follow-up visit with spouse, Tomer. on 3mg of prednisone and plans to reduce to 2mg soon. Reduces 1mg per month until d/c. Plans to adjust insulin prn. Pre prednisone tx pt was taking 12u basal insulin HS. No diet changes since last visit. Surprised ice cream in small portions seems ok for BG. Sub glucerna for meals sometimes. Less napping in the afternoon lately, less fatigue. Some concern for kidney etiology, CKD and 1 kidney. GFR and cr were significantly impacted when hgA1c was in the 9% range. Much improved with recent labs. GFR: 58 Cr: 1.06 HgA1c: 7.9% States PCP has mentioned Jardiance in the past, however was too expensive. Insurance plan changes recently. May benefit from consideration of SGLT2i if provider agrees pending contraindications for her urology hx. Checked insurance for Jardiance coverage. Predicted 2-3 months $160. With SGLt2i may need very low dose or d/c of insulin once prednisone is titrated down. Would prefer this plan. Endorses wt gain with recent prednisone and insulin changes. Pt reports she is on an ostomy and urostomy. Encouraged further discussion with PCP on this with SGLt2i. This may be a contraindication. Self-Monitoring Blood Glucose: Much improved BG time in range. in goal of 70% or higher time in range. Reduced prednisone and CGM awareness of BG seems to be helpful. TIR: 3% very high 23% high 74% in range 0% low avmg/dl std dev: 44 mg/dl GMI: 7% Last TIR: 12% very high 34% high 54% in range 0% low avmg/dl std dev: 58 mg/dl variation: 32.4% Diabetes Medications: 1000mg Metformin BID 21-22u Degludec HS Pertinent Labs: HgA1c: 10.7% 06/2023 9.2% 09/2023 7.9% 12/2023 Past Medical History: (Last Reviewed 10/01/23 @ 06:07 by Karlos Avila MD) Abnormal Pap smear of cervix (~1978) Acquired hypothyroidism Anemia (~1966) Cataracts, bilateral (~2019) Chicken pox Child Chronic kidney disease, stage 3b Colon polyps (~1993) Depression, recurrent (~1984) Essential hypertension Hemorrhoid History of blood clots History of cervical cancer (~1979) History of colon cancer (~1993) History of colon polyps HTN (hypertension) Hyperlipidemia Hypothyroidism (~1999) Kidney disease (~1995) Limp Left hip was injured 25 years ago or more. Also have bad balance. 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 Provided appropriate educational handouts. Discussed the following topics: Reviewed CGM data and trends medication management: SGLT2i and insulin, SE, recs, pro/con, potential contraindications May need insulin even with SGLt2i in future prednisone use Insulin titration down by 20% at a time with reduced prednisone tx FBG goals Goals: Check insurance plans for SGLT2i- met Place next personal CGM in 10.5 days- met Keep FBG to 80-130g/dl- new Consider reducing basal insulin by 20% with reduced prednisone- new Follow-up: CIPRIANO HRARISON follow-up in April after PCP visit. RD messaged PCP about potential for SGLT2i with some apprehension with urostomy. Will continue to monitor. Cindy Navarro RDN, [facility] Certified Diabetes Care and Complex Commercial Litigation Paralegal P: [phone] Thank you for this referral
== END ==
PROVIDERS: Family Provider Internal Medicine; PCP Internal Medicine; Referring Provider Internal Medicine
DX: E11.22 Type 2 diabetes mellitus with diabetic chronic kidney disease (principal); Z71.3 Dietary counseling and surveillance; Z79.52 Long term (current) use of systemic steroids; N18.1 Chronic kidney disease, stage 1; Z90.5 Acquired absence of kidney; Z79.84 Long term (current) use of oral hypoglycemic drugs; Z79.4 Long term (current) use of insulin
CPT/HCPCS: G0108

== ENCOUNTER → 2024-04-30 10:57 | Outpatient (CLI) | payer MEDICARE, OTHER, SELFPAY ==
[2024-04-30 11:52] LABS: BUN Creatinine Ratio 20.8 (6-22); Blood Urea Nitrogen 26 mg/dL (7-17); Calcium 10.2 mg/dL (8.4-10.2); Carbon Dioxide 26 mmol/L (22-32); Chloride 106 mmol/L (98-107); Estimated Glomerular Filt Rate 45 mL/min (>60); Glucose 143 mg/dL (80-110); HEMOLYSIS < 15 (0-50); Potassium 4.6 mmol/L (3.4-5.1); Sodium 136 mmol/L (137-145)
[2024-04-30 14:18] LABS: Free T4, Direct Thyroxine 1.62 ng/dL (0.78-2.19)
== END ==
PROVIDERS: Family Provider Internal Medicine; PCP Internal Medicine; Referring Provider Internal Medicine; Visit Provider Internal Medicine
DX: E11.42 Type 2 diabetes mellitus with diabetic polyneuropathy (principal); E03.9 Hypothyroidism, unspecified
CPT/HCPCS: 36415; 80048; 83036; 84439; 84443

== ENCOUNTER → 2024-05-17 10:01 | Outpatient (CLI) | payer MEDICARE, OTHER, SELFPAY ==
--- NOTE | 2024-05-17 10:06 | DIAB.MNTFU ---
Follow-up Diabetes Medical Nutrition Therapy Assessment Name: Madyson Ladd Date: 05/17/24 Time: 3360-9635s Dx: Type II Diabetes Madyson presents for follow-up visit with spouse, Tomer. Much improved hgA1c to 7%, down from 7.9% on 1mg of prednisone and plans to reduce to 0mg soon. Reduces 1mg per month until d/c. Plans to adjust insulin prn. Pre prednisone tx pt was taking 12u basal insulin HS. Started 10mg Jardiance. Has reduced evening insulin to 16u from 22u, approx 27%. States Jardiance is more affordable after first payment of $700 for 3 monts worth due to deductible. States for now this is sustainable. About $200 q three months after. Less tired in the afternoon, less napping. Pushing about 2L fluids per day with SGLT2i. Pt reports she is on an ostomy and urostomy. Discussed with PCP contraindications for SGLt2i. Also has one kidney. Physical Activity: This time of year reads a lot, mostly sitting. Interested in small stationary bike. Self-Monitoring Blood Glucose: TIR at goal, expect continued improvement with reduced prednisone by next month to 0mg. Most elevations are after lunch and/or dinner. TIR: 2% very high 22% high 76% in range 0% low avmg/dl std dev: 42 mg/dl GMI: 7% Last TIR: 3% very high 23% high 74% in range 0% low avmg/dl std dev: 44 mg/dl GMI: 7% Diabetes Medications: 1000mg Metformin BID 16u Degludec HS 10mg Jardiance Pertinent Labs: HgA1c: 10.7% 06/2023 9.2% 09/2023 7.9% 12/2023 7% 04/2024 Past Medical History: (Last Reviewed 10/01/23 @ 06:07 by Karlos Avila MD) Abnormal Pap smear of cervix (~1978) Acquired hypothyroidism Anemia (~1966) Cataracts, bilateral (~2019) Chicken pox Child Chronic kidney disease, stage 3b Colon polyps (~1993) Depression, recurrent (~1984) Essential hypertension Hemorrhoid History of blood clots History of cervical cancer (~1979) History of colon cancer (~1993) History of colon polyps HTN (hypertension) Hyperlipidemia Hypothyroidism (~1999) Kidney disease (~1995) Limp Left hip was injured 25 years ago or more. Also have bad balance. 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 Provided appropriate educational handouts. Discussed the following topics: Reviewed CGM data and trends medication management: SGLT2i and insulin titration down Nutrition recs moderation Physical activity Goals: Keep FBG to 80-130g/dl- met Consider reducing basal insulin by 20% with reduced prednisone- met Chat with PCP about 10mg v 25mg Jardiance next visit (pending insulin needs and BG)- new Reduce insulin by 25% once d/c of prednisone- new Try small stationary bike after lunch and/or dinner- new Follow-up: CIPRIANO HARRISON follow-up in 3 months per pt req or sooner prn. Cindy Navarro, CIPRIANO, HUNTER Certified Diabetes Care and Inpatient Services Rn P: [phone] Thank you for this referral
== END ==
PROVIDERS: Family Provider Internal Medicine; PCP Internal Medicine; Referring Provider Internal Medicine
DX: E11.42 Type 2 diabetes mellitus with diabetic polyneuropathy (principal); Z71.3 Dietary counseling and surveillance; Z79.52 Long term (current) use of systemic steroids; Z79.4 Long term (current) use of insulin; Z79.84 Long term (current) use of oral hypoglycemic drugs
CPT/HCPCS: G0108

== ENCOUNTER → 2024-06-02 12:13 | Outpatient (CLI) | payer MEDICARE, OTHER, SELFPAY ==
--- NOTE | 2024-06-02 12:14 | DI.RAD.S_ITS ---
PROCEDURE: XR HAND RT MIN 3V INDICATIONS: right hand swelling, 2nd finger, 3rd finger MCP and PIP TECHNIQUE: 3 views of the hand(s) acquired. COMPARISON: None. FINDINGS: Bones: There is accessory ossicle adjacent ulnar styloid process. 1 cm cyst noted the mid scaphoid Joints: Mild STT and moderate 1st CMC degenerative change appreciated. There is mild degeneration all interphalangeal joints. Synovial swelling is present the MCP joints most prominent on 2nd and 3rd levels. Soft tissues: No soft tissue abnormality. IMPRESSION: Multilevel degeneration. MCP joint swelling is likely insignificant. Please correlate with arthritic serologies to ensure the absence of supportive evidence for rheumatoid arthritis Dictated by: Ramakrishna Martin M.D. on 06/03/2024 at 10:05 Approved by: Ramakrishna Martin M.D. on 06/03/2024 at 10:07
== END ==
PROVIDERS: Family Provider Internal Medicine; PCP Internal Medicine; Referring Provider Nurse Practitioner Family; Visit Provider Nurse Practitioner Family
DX: M19.041 Primary osteoarthritis, right hand (principal); M79.641 Pain in right hand
CPT/HCPCS: 73130

== ENCOUNTER → 2024-08-01 14:20 | Outpatient (CLI) | payer MEDICARE, OTHER, SELFPAY ==
[2024-08-01 15:15] LABS: Hematocrit 38.3 % (36-46); Hemoglobin 12.7 g/dL (12.0-16.0); Mean Corpuscular HGB Conc 33.1 % (30-36); Mean Corpuscular Hemoglobin 29.9 PG (26-34); Mean Corpuscular Volume 90.3 fL (80-100); Platelet Count 210 X10^3/uL (150-400); Red Blood Cell Count 4.24 X10^6/uL (4.0-5.2); Red Cell Distribution Width 15.9 % (11.6-14.8)
[2024-08-01 15:24] LABS: HEMOLYSIS < 15 (0-50)
[2024-08-01 15:26] LABS: Hemoglobin A1C% w Est Avg Glu 6.9 % (4.0-6.0)
[2024-08-01 15:32] LABS: Blood Urea Nitrogen 23 mg/dL (7-17); C-Reactive Protein Quant 1.6 mg/dL (<1.0); Calcium 9.8 mg/dL (8.4-10.2); Carbon Dioxide 24 mmol/L (22-32); Chloride 105 mmol/L (98-107); Erythrocyte Sedimentation Rate 52 MM/HR (0-20); Estimated Glomerular Filt Rate 46 mL/min (>60); Glucose 120 mg/dL (80-110); Potassium 4.2 mmol/L (3.4-5.1); Sodium 138 mmol/L (137-145)
[2024-08-01 16:01] LABS: Carcinoembryonic Antigen 7.3 ng/mL (0.1-3.0)
[2024-08-01 16:19] LABS: Vitamin B12 Reflex MMA if <400 661 pg/mL (239-931)
== END ==
PROVIDERS: Family Provider Internal Medicine; PCP Internal Medicine; Referring Provider Internal Medicine; Visit Provider Internal Medicine
DX: N18.32 Chronic kidney disease, stage 3b (principal); E11.42 Type 2 diabetes mellitus with diabetic polyneuropathy; Z85.038 Personal history of other malignant neoplasm of large intestine; E03.9 Hypothyroidism, unspecified; M35.3 Polymyalgia rheumatica; E53.8 Deficiency of other specified B group vitamins
CPT/HCPCS: 36415; 80048; 82378; 82607; 83036; 84443; 85027; 85651; 86140

== ENCOUNTER → 2024-08-18 12:57 | Outpatient (CLI) | payer MEDICARE, OTHER, SELFPAY ==
[2024-08-18 15:01] LABS: Add Manual Diff / Slide Review NO; Basophils Absolute Auto 0 /uL (0-100); Basophils Percent Auto 0.4 % (0-2); Eosinophils Absolute Auto 0 /uL (0-450); Eosinophils Percent Auto 0.3 % (2-4); Hematocrit 37.6 % (36-46); Hemoglobin 12.6 g/dL (12.0-16.0); Lymphocytes Absolute Auto 500 /uL (1100-4500); Lymphocytes Percent Auto 6.5 % (25-40); Mean Corpuscular HGB Conc 33.4 % (30-36); Mean Corpuscular Hemoglobin 30.3 PG (26-34); Mean Corpuscular Volume 90.6 fL (80-100); Monocytes Absolute Auto 300 /uL (0-900); Monocytes Percent Auto 3.7 % (3-14); Neutrophils Absolute Auto 7500 /uL (1500-7000); Neutrophils Percent Auto 89.1 % (50-75); Platelet Count 174 X10^3/uL (150-400); Red Blood Cell Count 4.15 X10^6/uL (4.0-5.2); Red Cell Distribution Width 15.6 % (11.6-14.8); White Blood Cell Count 8.4 X10^3/uL (4.5-11.0)
[2024-08-18 15:30] LABS: Alanine Aminotransferase 21 IU/L (<35); Albumin 4.3 g/dL (3.5-5.0); Albumin Globulin Ratio 1.9 (1.0-2.8); Alkaline Phosphatase 63 U/L (38-126); Aspartate Aminotransferase 27 IU/L (14-36); BUN Creatinine Ratio 18.7 (6-22); Bilirubin Total 0.6 mg/dL (0.2-1.3); Blood Urea Nitrogen 25 mg/dL (7-17); C-Reactive Protein Quant < 0.5 mg/dL (<1.0); Calcium 9.9 mg/dL (8.4-10.2); Carbon Dioxide 22 mmol/L (22-32); Chloride 106 mmol/L (98-107); Estimated Glomerular Filt Rate 41 mL/min (>60); Globulin 2.3 g/dL (1.7-4.1); Glucose 133 mg/dL (70-99); HEMOLYSIS < 15 (0-50); Potassium 4.6 mmol/L (3.4-5.1); Sodium 137 mmol/L (137-145); Total Protein 6.6 g/dL (6.3-8.2)
== END ==
PROVIDERS: Family Provider Internal Medicine; PCP Internal Medicine; Referring Provider Internal Medicine Rheumatology; Visit Provider Internal Medicine Rheumatology
DX: M05.79 Rheumatoid arthritis with rheumatoid factor of multiple sites without organ or systems involvement (principal)
CPT/HCPCS: 36415; 80053; 85025; 86140

== ENCOUNTER → 2024-08-18 13:35 | Outpatient (CLI) | payer MEDICARE, OTHER, SELFPAY | LOC: PHYS 13:37 | PROVIDERS: Family Provider Internal Medicine; PCP Internal Medicine; Referring Provider Internal Medicine; Visit Provider Internal Medicine | DX: E11.42 Type 2 diabetes mellitus with diabetic polyneuropathy (principal); M35.3 Polymyalgia rheumatica; G62.9 Polyneuropathy, unspecified; M19.049 Primary osteoarthritis, unspecified hand; M05.79 Rheumatoid arthritis with rheumatoid factor of multiple sites without organ or systems involvement; R94.131 Abnormal electromyogram [EMG] | CPT/HCPCS: 36415; 80053; 85025; 86140; 95885; 95886; 95910 ==

== ENCOUNTER → 2024-08-31 10:03 | Outpatient (CLI) | payer MEDICARE, OTHER, SELFPAY ==
--- NOTE | 2024-08-31 13:49 | DIAB.MNTFU ---
Addendum entered by Cindy Navarro 09/16/24 17:37: Called pt 09/16/24: PCP rec increase of Jardiance to 25mg. Pt concerned about cost. She will check with pharmacy. States hospital discharge recs for 4u bolus ac insulin. Encouraged her to start with adding ac insulin to lunch, her highest glucose of the day per CGM reports. Will f/u 1:1 in 5 days. Original Note: Follow-up Diabetes Medical Nutrition Therapy Assessment Name: Madyson Ladd Date: 08/31/24 Time: 1010-1050a Dx: Type II Diabetes Madyson presents for follow-up visit with spouse, Tomer. Since our last visit, Madyson has been hospitalized and lost most of her hair r/t taking excessive dose of a medication to treat her arthritis accidentally. Due to a PMR flare, has restarted prednisone and is noticing the increase in BG. 220-340mg/dl after meals. Her fastings are in the 100-150mg/dl range this week, so hesitant to increase the Tresiba. She was rx'd Lispro from her [facility] stay, but currently not using. Might be a good consideration to use meal time insulin temporarily and/or trial the 25mg Jardiance (up from 10mg). RD will plan to see her every 3-4 weeks, which coincides with her reducing prednisone each month. Reports some higher CHO intake at lunch. Currently seeing higher BG with similar meals/snacks as before, but with steroid therapy this would be expected. She is on an ostomy and urostomy. Also has one kidney. Diet Recall 7-9a: egg, toast, coffee with 1/2 tsp sugar and 2% milk 12-2p: cheese toast on 1 sourdough slice with fruit +/- chips sn: nuts or dessert 5-7p: protein, veggies and a bun or mac salad sn: nothing or 2/3c ice cream water 40oz coke zero 2c coffee sf lemonade Physical Activity: gardening Self-Monitoring Blood Glucose: TIR not currently at goal with persistent hyperglycemia. Once compression/false low last night. Treated with apple juice. TIR: 18% very high 45% high 37% in range 0% low <1% very low (compression low) avmg/dl GMI: 8.1% std dev: 53mg/dl variation: 26.7% Last TIR: 2% very high 22% high 76% in range 0% low avmg/dl std dev: 42 mg/dl GMI: 7% Diabetes Medications: 1000mg Metformin BID 22u Degludec HS 10mg Jardiance Pertinent Labs: HgA1c: 10.7% 06/2023 9.2% 09/2023 7.9% 12/2023 7% 04/2024 6.9% 07/2024 Past Medical History: (Last Reviewed 10/01/23 @ 06:07 by Karlos Avila MD) Abnormal Pap smear of cervix (~1978) Acquired hypothyroidism Anemia (~1966) Cataracts, bilateral (~2019) Chicken pox Child Chronic kidney disease, stage 3b Colon polyps (~1993) Depression, recurrent (~1984) Essential hypertension Hemorrhoid History of blood clots History of cervical cancer (~1979) History of colon cancer (~1993) History of colon polyps HTN (hypertension) Hyperlipidemia Hypothyroidism (~1999) Kidney disease (~1995) Limp Left hip was injured 25 years ago or more. Also have bad balance. 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 Provided appropriate educational handouts. Discussed the following topics: Reviewed CGM data and trends medication management: insulin therapy in the setting of prednisone tx Carb portions at lunch Reducing desserts at this time Physical activity Goals: Avoid or reduce desserts at this time Choose either chips OR fruit at lunch Follow-up: CIPRIANO HARRISON follow-up in 2-[address] messaged PCP regarding potential for meal time insulin temporarily while postprandial BG are elevated with prednisone tx. Will update pt once PCP weighs in. Cindy Navarro, CIPRIANO, HUNTER Certified Diabetes Care and [employer] Printing Press Operator P: [phone] Thank you for this referral
== END ==
LOC: DIET 10:08
PROVIDERS: Family Provider Internal Medicine; PCP Internal Medicine; Referring Provider Internal Medicine
DX: E11.65 Type 2 diabetes mellitus with hyperglycemia (principal); M35.3 Polymyalgia rheumatica; Z79.52 Long term (current) use of systemic steroids; Z79.84 Long term (current) use of oral hypoglycemic drugs; Z79.4 Long term (current) use of insulin; Z71.3 Dietary counseling and surveillance
CPT/HCPCS: 97803

== ENCOUNTER → 2024-09-21 09:44 | Outpatient (CLI) | payer MEDICARE, OTHER, SELFPAY ==
--- NOTE | 2024-09-21 09:55 | DIAB.FU ---
Addendum entered by iCndy Navarro 11/02/24 13:13: 11/02/24: Called for check in with patient. No answer. Left VM to call back at earliest convenience. Reviewed CGM results. Meeting ADA goals with in range time >70%, though still having hyperglycemia (3% very high, 19% high). Will try back again next week if no call back. Addendum entered by Cindy Navarro 10/12/24 14:27: Phone call 10/12/24: had a Dexcom sensor fail. Did not see piece of sensor when pulled. Has been trying to get in touch with [employer] for additional info and direction, no call back yet. No puncture spot from CGM palpable per report. No dried blood. Sensor may not have properly placed. Encouraged her to keep an eye on it and contact [employer] via online option. 14 u Tresiba last night. Reports PCP d/c of Losartan. Has not yet looked into higher dose cost for Jardiance. Plans to do so when she runs out. FBG seem ok with current HS insulin. If wanting to reduce mealtime elevations, may want to reconsider starting ac insulin at a low dose. Will call her in 3 weeks. Original Note: Follow-up Diabetes Education Assessment Name: Madyson Ladd Date: 09/21/24 Time: 10a Dx: Type II Diabetes Madyson presents for follow-up visit with spouse, Tomer. Reports recent specialist visit and likely diagnosis of rheumatoid arthritis, instead of PMR. States specialist wants to add another pill, but she is feeling pill fatigue per report. Also reports some BP of 100/50 at a recent specialist visit. Taking losartan. Has questions about losartan + Jardiance and BP. Plans to discuss with PCP this month. Potential plan, if pt no longer needs losartan (pending PCP rec) and no longer needs prednisone, this would reduce pill intake. If Jardiance is affordable at 25mg, which she has not yet looked into, she could increase to 25mg. Without prednisone, potential for d/c of insulin therapy with higher SGLT2i dose? Will continue to evaluate and see what plan she discusses with PCP. Has recent reduced Tresiba to 14u. BG improved but still having excessive hyperglycemia. Has tried Lispro at lunch. BG were improved, but worried about lows per report. Non documented. Plans to reduce prednisone to 8 tomorrow. Will need reduction in Tresiba as a result. Would rec 20% reduction. States she has recent lab work indicating potential for cancer. Sees oncology this month. She is on an ostomy and urostomy. Also has one kidney. Reports similar diet to last visit. Physical Activity: gardening Self-Monitoring Blood Glucose: TIR not currently at goal with persistent hyperglycemia, though improved. Waking with in range FBG this week. Still having pc elevations. TIR: 7% very high 33% high 60% in range 0% low 0% very low (compression low) avmg/dl GMI: 8.1% std dev: 53mg/dl variation: 26.7% Last TIR: 18% very high 45% high 37% in range 0% low <1% very low (compression low) avmg/dl GMI: 8.1% std dev: 53mg/dl variation: 26.7% Diabetes Medications: 1000mg Metformin BID 14u Degludec HS 10mg Jardiance Pertinent Labs: HgA1c: 10.7% 06/2023 9.2% 09/2023 7.9% 12/2023 7% 04/2024 6.9% 07/2024 Past Medical History: (Last Reviewed 10/01/23 @ 06:07 by Karlos Avila MD) Abnormal Pap smear of cervix (~1978) Acquired hypothyroidism Anemia (~1966) Cataracts, bilateral (~2019) Chicken pox ChildChronic kidney disease, stage 3b Colon polyps (~1993) Depression, recurrent (~1984) Essential hypertension Hemorrhoid History of blood clots History of cervical cancer (~1979) History of colon cancer (~1993) History of colon polyps HTN (hypertension) Hyperlipidemia Hypothyroidism (~1999) Kidney disease (~1995) Limp Left hip was injured 25 years ago or more. Also have bad balance.Measles ChildMigraines Mixed hyperlipidemia Mumps ChildNumerous moles Obstructive sleep apnea (adult) (pediatric) Polymyalgia rheumatica Polyneuropathy, unspecified Primary osteoarthritis involving multiple joints Rubella Scoliosis Single kidney Type 2 diabetes mellitus with polyneuropathy Intervention: This participant was very receptive. Provided appropriate educational handouts. Discussed the following topics: Reviewed CGM data and trends medication management: insulin therapy in the setting of prednisone tx, potential for increase in Jaridance if affordable Carb portions and desserts Physical activity Goals: Avoid or reduce desserts at this time - in progress Choose either chips OR fruit at lunch - met Call pharmacy about 25mg Jardiance cost- new Reduce Tresiba to 10-12u once you reduce prednisone to 8- new Discuss losartan with PCP this month- new Follow-up: CIPRIANO HARRISON follow-up in 3 weeks via phone call per pt request given number of appointments coming up. Cindy Navarro RDN, HUNTER Certified Diabetes Care and [employer] Apprentice P: [phone] Thank you for this referral
== END ==
PROVIDERS: Family Provider Internal Medicine; PCP Internal Medicine
DX: E11.65 Type 2 diabetes mellitus with hyperglycemia (principal); Z71.3 Dietary counseling and surveillance; Z79.84 Long term (current) use of oral hypoglycemic drugs; Z79.4 Long term (current) use of insulin
CPT/HCPCS: G0108

== ENCOUNTER 2024-10-02 13:05 | Observation (INO) | payer MEDICARE, OTHER, SELFPAY ==
[2024-10-02] VITALS (17 sets, daily range): BP systolic 136–176; BP diastolic 60–102; PULSE 61–94; RESP 14–24; TEMP 36.1–36.3; O2SAT 89–97; BMI 26.9
--- NOTE | 2024-10-02 13:15 | DI.RAD.S_ITS ---
PROCEDURE: XR CHEST 1V INDICATIONS: Chest Pain TECHNIQUE: One view of the chest was acquired. COMPARISON: [facility], CR, XR CHEST 1 VIEW, 06/21/2024, 11:01. [facility], CR, XR CHEST 1V, 01/15/2023, 19:13. [facility], CR, XR CHEST 2 VIEWS, 06/26/2024, 16:41. FINDINGS AND IMPRESSION: On this single view study, no airspace consolidation or pleural effusion is identified. There are questionable small nodular opacities in the left lower lung. Outpatient chest CT follow-up in about 1 month suggested to evaluate for underlying nodule. Normal heart size. Degenerative osseous changes Dictated by: Nash Nazario M.D. on 10/02/2024 at 14:18 Approved by: Nash Nazario M.D. on 10/02/2024 at 14:20
--- NOTE | 2024-10-02 13:40 | EKG_ITS ---
[place] [id number] [place] [id number] Test Date: 2024-10-02 Pat Name: Madyson Ladd Department: [facility] Room: Gender: Female Rn Maternity: KENNEDI : 1945 Requested By: Order Number: [id number] Reading MD: Ramakrishna Patel MD Measurements Intervals [place] Rate: 81 P: 77 [place]: 138 QRS: 26 QRSD: 92 T: 13 QT: 364 QTc: 422 Interpretive Statements Normal sinus rhythm Right atrial enlargement Nonspecific ST abnormality Electronically Signed On 10-03-2024 7:45:32 PDT by Ramakrishna Patel MD
[2024-10-02 13:51] LABS: INR 0.9 (0.9-1.3); Prothrombin Time 10.4 SECONDS (9.4-12.5)
[2024-10-02 13:54] LABS: PTT Partial Thromboplastin Tim 33 SECONDS (25.1-36.5)
[2024-10-02 13:55] LABS: Alanine Aminotransferase 31 IU/L (<35); Albumin 4.7 g/dL (3.5-5.0); Albumin Globulin Ratio 1.5 (1.0-2.8); Alkaline Phosphatase 61 U/L (38-126); Aspartate Aminotransferase 44 IU/L (14-36); BUN Creatinine Ratio 17.6 (6-22); Bilirubin Total 0.9 mg/dL (0.2-1.3); Blood Urea Nitrogen 21 mg/dL (7-17); Calcium 11.4 mg/dL (8.4-10.2); Carbon Dioxide 23 mmol/L (22-32); Chloride 104 mmol/L (98-107); Creatine Kinase 302 U/L (30-135); Estimated Glomerular Filt Rate 47 mL/min (>60); Globulin 3.2 g/dL (1.7-4.1); Glucose 140 mg/dL (70-99); HEMOLYSIS 16 (0-50); Lipase 307 U/L (23-300); Magnesium 1.9 mg/dL (1.6-2.3); Potassium 4.2 mmol/L (3.4-5.1); Sodium 137 mmol/L (137-145); Total Protein 7.9 g/dL (6.3-8.2)
[2024-10-02 14:02] LABS: Add Manual Diff / Slide Review NO; Basophils Absolute Auto 100 /uL (0-100); Basophils Percent Auto 1.1 % (0-2); Eosinophils Absolute Auto 0 /uL (0-450); Eosinophils Percent Auto 0.7 % (2-4); Hematocrit 41.4 % (36-46); Hemoglobin 13.7 g/dL (12.0-16.0); Lymphocytes Absolute Auto 600 /uL (1100-4500); Lymphocytes Percent Auto 8.6 % (25-40); Mean Corpuscular HGB Conc 33.1 % (30-36); Mean Corpuscular Hemoglobin 30.6 PG (26-34); Mean Corpuscular Volume 92.6 fL (80-100); Monocytes Absolute Auto 500 /uL (0-900); Neutrophils Absolute Auto 5400 /uL (1500-7000); Neutrophils Percent Auto 82.6 % (50-75); Platelet Count 161 X10^3/uL (150-400); Red Blood Cell Count 4.47 X10^6/uL (4.0-5.2); Red Cell Distribution Width 14.8 % (11.6-14.8); White Blood Cell Count 6.6 X10^3/uL (4.5-11.0)
[2024-10-02 14:06] LABS: NT-proBNP (BNP-Adult 18+) 302 pg/mL (<450); Troponin I 0.026 ng/mL (0.01-0.034)
--- NOTE | 2024-10-02 14:38 | ED_ITS ---
HPI - Dizziness <Krysten Cortez MD - Last Filed: 10/04/24 11:50> General Chief Complaint: Dizziness Stated Complaint: Nausea, Dizzyness, Excessive Sleeping, Black Stool Time Seen by Provider: 10/02/24 13:46 Source: patient Mode of arrival: Ambulatory History of Present Illness HPI Narrative: 78-year-old female history of colorectal cancer status post partial colectomy and ostomy, cystectomy and urostomy, rheumatoid arthritis, polymyalgia rheumatica, hypertension, type 2 diabetes, chronic kidney disease, recently started on sulfasalazine by her cable television access coordinator here with fatigue, dizziness she describes as the spins, worse with moving her head or getting up/changing position, increased heartburn and nausea, black loose stool. Symptoms developing over the last 2-3 days. No prior history of upper GI bleed. Denies respiratory infectious illness. She does have some central chest discomfort she attributes to acid reflex Related Data Home Medications ?Medication ?Instructions ?Recorded ?Confirmed aspirin 81 mg tablet,delayed 81 mg PO DAILY 04/28/18 0 10/04/24 release acetaminophen 500 mg tablet 500 mg PO TID 05/20/18 (Tylenol Extra Strength) ascorbic acid (vitamin C) 500 mg 500 mg PO DAILY 01/2310/04/24 tablet (Vitamin C) cholecalciferol (vitamin D3) 50 50 mcg PO DAILY 10/04/24 mcg (2,000 unit) capsule (Vitamin D3) leflunomide 20 mg tablet 20 mg PO DAILY 08/01/2409/18 Tresiba U-100 Insulin See Rx Instructions SUBCUT B EDTIME 10/02/24 10/04/24 rosuvastatin 20 mg tablet 20 mg PO QPM 10/02/24 Previous Rx's ?Medication ?Instructions ?Recorded Parking Permit... #1 ea 06/30/23 metformin 500 mg tablet 1,000 mg (2 x 500 mg) PO BID #360 11/11/23 tabs levothyroxine 112 mcg tablet 112 mcg PO DAILY #90 tabs 01/04/24 blood-glucose sensor (Dexcom G7 #1 ea 02/24/24 Sensor device) blood-glucose,medical lab assistant,cont #1 ea 02/24/24 (Dexcom G7 Route Agent) gabapentin 100 mg capsule 500 mg (5 x 100 mg) PO DAILY #450 03/09/24 caps sertraline 50 mg tablet 50 mg PO QPM #90 tabs empagliflozin 25 mg tablet 25 mg PO DAILY #90 tabs 06/14 (Jardiance) Allergies Allergy/AdvReac Type Severity Reaction Status Date / Time diphenhydramine AdvReac Intermediate Agitated Verified 10/04/24 10:58 lisinopril AdvReac Cough Verified 10/04/24 10:58 Review of Systems <Krysten Cortez MD - Last Filed: 10/04/24 11:50> Review of Systems Narrative: Pertinent ROS obtained and negative except as stated in HPI Patient History <Krysten Cortez MD - Last Filed: 10/04/24 11:50> Medical History Abnormal Pap smear of cervix (~1978) Acquired hypothyroidism Anemia (~1966) B12 deficiency Cataracts, bilateral (~2019) Chicken pox Chronic kidney disease, stage 3b Colon polyps (~1993) Depression, recurrent (~1984) Essential hypertension Hemorrhoid History of blood clots History of cervical cancer (~1979) History of colon cancer (~1993) History of colon polyps HTN (hypertension) Hyperlipidemia Hypothyroidism (~1999) Kidney disease (~1995) Limp Measles Migraines Mixed hyperlipidemia Mumps Numerous moles Obstructive sleep apnea (adult) (pediatric) Polymyalgia rheumatica Polyneuropathy, unspecified Primary osteoarthritis involving multiple joints Rheumatoid arthritis Rubella Scoliosis 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 Grandmother Diabetes mellitus Social History household members: spouse Smoking Status: Current some day smoker alcohol intake frequency: holidays/special occasions only Exam <Krysten Cortez MD - Last Filed: 10/04/24 11:50> Initial Vital Signs Initial Vital Signs: Vital Signs Temperature 97.0 F L 10/02/24 13:09 Pulse Rate 94 H 10/02/24 13:09 Respiratory Rate 18 10/02/24 13:09 Blood Pressure 136/60 10/02/24 13:09 Pulse Oximetry 94 10/02/24 13:09 Oxygen Delivery Method Room Air 10/02/24 13:09 Constitutional: 78-year-old female chronically ill-appearing resting in the bed, no acute distress Head: NCAT, mmm, tongue has black discoloration Cardiovascular: RRR, no murmur or rub Pulmonary: CTA bilaterally, no respiratory distress Abdominal: soft, non-tender. colostomy and cystostomy is noted, skin adjacent is clean dry intact Extremities: No LE edema Skin: warm and dry, no diaphoresis Neurological: Alert and oriented x3 <Nathaniel Marina DO - Last Filed: 10/02/24 20:44> Initial Vital Signs Initial Vital Signs: Vital Signs Temperature 97.0 F L 10/02/24 13:09 Pulse Rate 94 H 10/02/24 13:09 Respiratory Rate 18 10/02/24 13:09 Blood Pressure 136/60 10/02/24 13:09 Pulse Oximetry 94 10/02/24 13:09 Oxygen Delivery Method Room Air 10/02/24 13:09 Course <Krysten Cortez MD - Last Filed: 10/04/24 11:50> Orders Ordered: Discontinued Medications Acetaminophen (Acetaminophen 325 Mg Tablet) 650 mg PO Q6H PRN PRN Reason: Fever/Mild Pain (1-3) Hydrocodone Bitart/Acetaminophen (Hydrocodone/Acet 5/325 Tablet) 1 tab PO Q4H PRN PRN Reason: Pain, Moderate (4-6) Al Hydrox/Mg Hydrox/Simethicone (Mag Hydrox/Alum/Simeth 30 Ml Udc) 30 ml PO Q6HR PRN PRN Reason: Dyspepsia Aspirin (Aspirin 81 Mg Chew Tab) 324 mg PO NOW ONE Stop: 10/02/24 13:15 Last Admin: 10/02/24 14:51 Dose: Not Given Documented By: SB Aspirin (Aspirin Ec 81 Mg Tablet) 81 mg PO DAILY [facility] Last Admin: 10/03/24 09:53 Dose: 81 mg Documented By: CLP Atorvastatin Calcium (Atorvastatin 20 Mg Tablet) 40 mg PO BEDTIME [facility] Last Admin: 10/02/24 22:39 Dose: 40 mg Documented By: CM Calcium Carbonate (Calcium Carbonate 500 Mg Tab) 1,000 mg PO Q4HR PRN PRN Reason: Dyspepsia Gabapentin (Gabapentin 100 Mg Capsule) 500 mg PO DAILY [facility] Last Admin: 10/03/24 09:55 Dose: 100 mg Documented By: CLP Heparin Sodium (Porcine) (Heparin 5,000 Unit/Ml Vial) 5,000 unit SUBCUT BID [facility] Last Admin: 10/03/24 09:52 Dose: Not Given Documented By: Admin: 10/02/24 23:25 Dose: Not Given Documented By: GERARDO Sodium Chloride (Normal Saline 0.9%) 1,000 mls @ 1,000 mls/hr IV BOLUS ONE Stop: 10/02/24 15:40 Last Infusion: 10/02/24 16:37 Dose: Infused Documented By: Admin: 10/02/24 14:55 Dose: 1,000 mls/hr Documented By: YANET Levothyroxine Sodium (Levothyroxine 112 Mcg Tablet) 112 mcg PO 0600 [facility] Last Admin: 10/03/24 05:26 Dose: 112 mcg Documented By: GERARDO Losartan Potassium (Losartan 50 Mg Tablet) 50 mg PO DAILY [facility] Last Admin: 10/03/24 09:53 Dose: 50 mg Documented By: OTONIEL Naloxone HCl (Naloxone 0.4 Mg/Ml Vial) 0.2 mg IV Q2MIN PRN PRN Reason: Opiate Reversal Non-Formulary Medication (Prednisone) 0 mg PO .COMPLEX [facility] Non-Formulary Medication (Rosuvastatin) 20 mg PO DAILY [facility] Ondansetron HCl (Ondansetron 4 Mg/2 Ml Inj) 4 mg IV NOW ONE Stop: 10/02/24 14:42 Last Admin: 10/02/24 14:54 Dose: 4 mg Documented By: YANET Ondansetron HCl (Ondansetron 4 Mg/2 Ml Inj) 4 mg IV Q8HR PRN PRN Reason: Nausea And Vomiting Pantoprazole Sodium (Pantoprazole 40 Mg Vial) 80 mg IV NOW ONE Stop: 10/02/24 14:42 Last Admin: 10/02/24 14:54 Dose: 80 mg Documented By: YANET Pantoprazole Sodium (Pantoprazole Dr 20 Mg Tablet) 40 mg PO 0600 [facility] Last Admin: 10/03/24 05:26 Dose: 40 mg Documented By: GERARDO Sertraline HCl (Sertraline 50 Mg Tablet) 50 mg PO QPM [facility] Vital Signs Vital signs: Vital Signs - 8 hr 10/02/24 13:09 10/02/24 13:42 10/02/24 14:00 Temperature 97.0 F L Pulse Rate 94 H 81 78 Respiratory Rate 18 16 18 Blood Pressure 136/60 138/64 146/68 H Pulse Oximetry 94 89 L 92 Oxygen Delivery Method Room Air Room Air Oxygen Flow Rate 10/02/24 14:30 10/02/24 15:00 10/02/24 15:30 Temperature Pulse Rate 73 77 68 Respiratory Rate 16 Blood Pressure 156/71 H 150/66 H 142/102 H Pulse Oximetry 89 L 89 L 94 Oxygen Delivery Method Room Air Nasal Cannula Oxygen Flow Rate 2 10/02/24 16:01 10/02/24 16:30 10/02/24 17:00 Temperature Pulse Rate 71 72 71 Respiratory Rate 16 Blood Pressure 176/74 H 175/85 H 154/67 H Pulse Oximetry 97 96 95 Oxygen Delivery Method Room Air Oxygen Flow Rate 10/02/24 17:30 10/02/24 18:01 10/02/24 19:29 Temperature Pulse Rate 75 77 67 Respiratory Rate 16 14 Blood Pressure 148/65 H 146/64 H Pulse Oximetry 92 91 93 Oxygen Delivery Method Room Air Oxygen Flow Rate 10/02/24 19:29 10/02/24 19:30 10/02/24 19:30 Temperature Pulse Rate 69 Respiratory Rate 18 Blood Pressure 159/98 H 154/76 H Pulse Oximetry 93 Oxygen Delivery Method Oxygen Flow Rate 10/02/24 20:00 10/02/24 20:00 Temperature Pulse Rate 61 Respiratory Rate Blood Pressure 157/70 H Pulse Oximetry 92 Oxygen Delivery Method Nasal Cannula Oxygen Flow Rate 1 <Nathaniel Marina DO - Last Filed: 10/02/24 20:44> Orders Ordered: Discontinued Medications Acetaminophen (Acetaminophen 325 Mg Tablet) 650 mg PO Q6H PRN PRN Reason: Fever/Mild Pain (1-3) Hydrocodone Bitart/Acetaminophen (Hydrocodone/Acet 5/325 Tablet) 1 tab PO Q4H PRN PRN Reason: Pain, Moderate (4-6) Al Hydrox/Mg Hydrox/Simethicone (Mag Hydrox/Alum/Simeth 30 Ml Udc) 30 ml PO Q6HR PRN PRN Reason: Dyspepsia Aspirin (Aspirin 81 Mg Chew Tab) 324 mg PO NOW ONE Stop: 10/02/24 13:15 Last Admin: 10/02/24 14:51 Dose: Not Given Documented By: SB Aspirin (Aspirin Ec 81 Mg Tablet) 81 mg PO DAILY [facility] Last Admin: 10/03/24 09:53 Dose: 81 mg Documented By: CLP Atorvastatin Calcium (Atorvastatin 20 Mg Tablet) 40 mg PO BEDTIME [facility] Last Admin: 10/02/24 22:39 Dose: 40 mg Documented By: GERARDO Calcium Carbonate (Calcium Carbonate 500 Mg Tab) 1,000 mg PO Q4HR PRN PRN Reason: Dyspepsia Gabapentin (Gabapentin 100 Mg Capsule) 500 mg PO DAILY [facility] Last Admin: 10/03/24 09:55 Dose: 100 mg Documented By: OTONIEL Heparin Sodium (Porcine) (Heparin 5,000 Unit/Ml Vial) 5,000 unit SUBCUT BID [facility] Last Admin: 10/03/24 09:52 Dose: Not Given Documented By: Admin: 10/02/24 23:25 Dose: Not Given Documented By: GERARDO Sodium Chloride (Normal Saline 0.9%) 1,000 mls @ 1,000 mls/hr IV BOLUS ONE Stop: 10/02/24 15:40 Last Infusion: 10/02/24 16:37 Dose: Infused Documented By: Admin: 10/02/24 14:55 Dose: 1,000 mls/hr Documented By: SB Levothyroxine Sodium (Levothyroxine 112 Mcg Tablet) 112 mcg PO 0600 [facility] Last Admin: 10/03/24 05:26 Dose: 112 mcg Documented By: GERARDO Losartan Potassium (Losartan 50 Mg Tablet) 50 mg PO DAILY [facility] Last Admin: 10/03/24 09:53 Dose: 50 mg Documented By: CLP Naloxone HCl (Naloxone 0.4 Mg/Ml Vial) 0.2 mg IV Q2MIN PRN PRN Reason: Opiate Reversal Non-Formulary Medication (Prednisone) 0 mg PO .COMPLEX [facility] Non-Formulary Medication (Rosuvastatin) 20 mg PO DAILY [facility] Ondansetron HCl (Ondansetron 4 Mg/2 Ml Inj) 4 mg IV NOW ONE Stop: 10/02/24 14:42 Last Admin: 10/02/24 14:54 Dose: 4 mg Documented By: YANET Ondansetron HCl (Ondansetron 4 Mg/2 Ml Inj) 4 mg IV Q8HR PRN PRN Reason: Nausea And Vomiting Pantoprazole Sodium (Pantoprazole 40 Mg Vial) 80 mg IV NOW ONE Stop: 10/02/24 14:42 Last Admin: 10/02/24 14:54 Dose: 80 mg Documented By: YANET Pantoprazole Sodium (Pantoprazole Dr 20 Mg Tablet) 40 mg PO 0600 [facility] Last Admin: 10/03/24 05:26 Dose: 40 mg Documented By: GERARDO Sertraline HCl (Sertraline 50 Mg Tablet) 50 mg PO QPM [facility] Vital Signs Vital signs: Vital Signs - 8 hr 10/02/24 13:09 10/02/24 13:42 10/02/24 14:00 Temperature 97.0 F L Pulse Rate 94 H 81 78 Respiratory Rate 18 16 18 Blood Pressure 136/60 138/64 146/68 H Pulse Oximetry 94 89 L 92 Oxygen Delivery Method Room Air Room Air Oxygen Flow Rate 10/02/24 14:30 10/02/24 15:00 10/02/24 15:30 Temperature Pulse Rate 73 77 68 Respiratory Rate 16 Blood Pressure 156/71 H 150/66 H 142/102 H Pulse Oximetry 89 L 89 L 94 Oxygen Delivery Method Room Air Nasal Cannula Oxygen Flow Rate 2 10/02/24 16:01 10/02/24 16:30 10/02/24 17:00 Temperature Pulse Rate 71 72 71 Respiratory Rate 16 Blood Pressure 176/74 H 175/85 H 154/67 H Pulse Oximetry 97 96 95 Oxygen Delivery Method Room Air Oxygen Flow Rate 10/02/24 17:30 10/02/24 18:01 10/02/24 19:29 Temperature Pulse Rate 75 77 67 Respiratory Rate 16 14 Blood Pressure 148/65 H 146/64 H Pulse Oximetry 92 91 93 Oxygen Delivery Method Room Air Oxygen Flow Rate 10/02/24 19:29 10/02/24 19:30 10/02/24 19:30 Temperature Pulse Rate 69 Respiratory Rate 18 Blood Pressure 159/98 H 154/76 H Pulse Oximetry 93 Oxygen Delivery Method Oxygen Flow Rate 10/02/24 20:00 10/02/24 20:00 Temperature Pulse Rate 61 Respiratory Rate Blood Pressure 157/70 H Pulse Oximetry 92 Oxygen Delivery Method Nasal Cannula Oxygen Flow Rate 1 MDM - Dizziness <Krysten Cortez MD - Last Filed: 10/04/24 11:50> Lab Data 10/03/24 05:55 10/03/24 05:55 Labs: Lab Results 10/02/24 10/02/24 10/02/24 Range/Units 13:29 13:52 15:18 WBC 6.6 (4.5-11.0) X10^3/uL RBC 4.47 (4.0-5.2) X10^6/uL Hgb 13.7 (12.0-16.0) g/dL Hct 41.4 (36-46) % MCV 92.6 (80-100) fL MCH 30.6 (26-34) PG MCHC 33.1 (30-36) % RDW 14.8 (11.6-14.8) % Plt Count 161 (150-400) X10^3/uL Neut % (Auto) 82.6 H (50-75) % Lymph % (Auto) 8.6 L (25-40) % [place] % (Auto) 7.0 (3-14) % Eos % (Auto) 0.7 L (2-4) % Baso % (Auto) 1.1 (0-2) % Neut # (Auto) 5400 (9601-1579) /uL Lymph # (Auto) 600 L (4906-4516) /uL [place] # (Auto) 500 (0-900) /uL Eos # (Auto) 0 (0-450) /uL Baso # (Auto) 100 (0-100) /uL PT 10.4 (9.4-12.5) SECONDS INR 0.9 (0.9-1.3) APTT 33 (25.1-36.5) SECONDS Sodium 137 (137-145) mmol/L Potassium 4.2 (3.4-5.1) mmol/L Chloride 104 (98-107) mmol/L Carbon Dioxide 23 (22-32) mmol/L BUN 21 H (7-17) mg/dL Creatinine 1.19 H (0.52-1.04) mg/dL Estimated GFR 47 L (>60) mL/min BUN/Creatinine Ratio 17.6 (6-22) Glucose 140 H (70-99) mg/dL Calcium 11.4 H (8.4-10.2) mg/dL Magnesium 1.9 (1.6-2.3) mg/dL Total Bilirubin 0.9 (0.2-1.3) mg/dL AST 44 H (14-36) IU/L ALT 31 (<35) IU/L Alkaline Phosphatase 61 (38-126) U/L Total Creatine Kinase 302 H (30-135) U/L Troponin I 0.026 (0.01-0.034) ng/mL NT-Pro-B Natriuret Pep 302 (<450) pg/mL Total Protein 7.9 (6.3-8.2) g/dL Albumin 4.7 (3.5-5.0) g/dL Globulin 3.2 (1.7-4.1) g/dL Albumin/Globulin Ratio 1.5 (1.0-2.8) Lipase 307 H (23-300) U/L Urine Color Yellow Urine Appearance Clear Urine pH 6.0 (4.5-8.0) Ur Specific [place] 1.015 (1.000-1.035) Urine Protein 1+ H (Negative) Urine Glucose (UA) 3+ H (Negative) g/dL Urine Ketones 1+ H (NEGATIVE) Urine Occult Blood Trace-intact (Negative) Urine Nitrate Negative (Negative) Urine Bilirubin 1+ H (NEGATIVE) Ur Bilirubin Confirm Negative (Negative) Urine Urobilinogen 0.2 (0.2) E.U./dL Ur Leukocyte Esterase Negative (NEGATIVE) Urine RBC None seen (0-5/HPF) Urine WBC 5-10/hpf H (0-5/HPF) Ur Squamous Epith Cells None seen (0-5/HPF) Ur Renal Epithelial Cell 0-1/hpf (0-1/HPF) Urine Bacteria Moderate (10-30) H (None) Ur Culture Indicated? Specimen cultured Vol Urine Centrifuged 10ml (spun) Chlamy pneumoniae PCR (Not Detect) Adenovirus (PCR) (Not Detect) B. pertussis DNA (PCR) (Not Detect) B.parapertussis DNA PCR (Not Detecte) Coronavirus OC43 (PCR) (Not Detect) Coronavirus HKU1 (PCR) (Not Detect) Coronavirus 229E (PCR) (Not Detect) SARS-CoV-2 (PCR) (Not Detecte) Coronavirus NL63 (PCR) (Not Detect) Human Metapneumovir PCR (Not Detect) Influenza Type A (PCR) (Not Detect) Influenza Type B (PCR) (Not Detect) M. pneumoniae (PCR) (Not Detect) Parainfluenza 1 (PCR) (Not Detect) Parainfluenza 2 (PCR) (Not Detect) Parainfluenza 3 (PCR) (Not Detect) Parainfluenza 4 (PCR) (Not Detect) RSV (PCR) (Not Detect) Entero/Rhino (PCR) (Not Detect) Blood Type A Positive Antibody Screen Negative 10/02/24 10/02/24 10/02/24 Range/Units 15:27 17:22 19:05 WBC (4.5-11.0) X10^3/uL RBC (4.0-5.2) X10^6/uL Hgb (12.0-16.0) g/dL Hct (36-46) % MCV (80-100) fL MCH (26-34) PG MCHC (30-36) % RDW (11.6-14.8) % Plt Count (150-400) X10^3/uL Neut % (Auto) (50-75) % Lymph % (Auto) (25-40) % [place] % (Auto) (3-14) % Eos % (Auto) (2-4) % Baso % (Auto) (0-2) % Neut # (Auto) (1642-7939) /uL Lymph # (Auto) (3722-0041) /uL [place] # (Auto) (0-900) /uL Eos # (Auto) (0-450) /uL Baso # (Auto) (0-100) /uL PT (9.4-12.5) SECONDS INR (0.9-1.3) APTT (25.1-36.5) SECONDS Sodium (137-145) mmol/L Potassium (3.4-5.1) mmol/L Chloride (98-107) mmol/L Carbon Dioxide (22-32) mmol/L BUN (7-17) mg/dL Creatinine (0.52-1.04) mg/dL Estimated GFR (>60) mL/min BUN/Creatinine Ratio (6-22) Glucose (70-99) mg/dL Calcium (8.4-10.2) mg/dL Magnesium (1.6-2.3) mg/dL Total Bilirubin (0.2-1.3) mg/dL AST (14-36) IU/L ALT (<35) IU/L Alkaline Phosphatase (38-126) U/L Total Creatine Kinase (30-135) U/L Troponin I 0.035 H 0.043 H (0.01-0.034) ng/mL NT-Pro-B Natriuret Pep (<450) pg/mL Total Protein (6.3-8.2) g/dL Albumin (3.5-5.0) g/dL Globulin (1.7-4.1) g/dL Albumin/Globulin Ratio (1.0-2.8) Lipase (23-300) U/L Urine Color Urine Appearance Urine pH (4.5-8.0) Ur Specific [place] (1.000-1.035) Urine Protein (Negative) Urine Glucose (UA) (Negative) g/dL Urine Ketones (NEGATIVE) Urine Occult Blood (Negative) Urine Nitrate (Negative) Urine Bilirubin (NEGATIVE) Ur Bilirubin Confirm (Negative) Urine Urobilinogen (0.2) E.U./dL Ur Leukocyte Esterase (NEGATIVE) Urine RBC (0-5/HPF) Urine WBC (0-5/HPF) Ur Squamous Epith Cells (0-5/HPF) Ur Renal Epithelial Cell (0-1/HPF) Urine Bacteria (None) Ur Culture Indicated? Vol Urine Centrifuged Chlamy pneumoniae PCR Not detected (Not Detect) Adenovirus (PCR) Not detected (Not Detect) B. pertussis DNA (PCR) Not detected (Not Detect) B.parapertussis DNA PCR Not detected (Not Detecte) Coronavirus OC43 (PCR) Not detected (Not Detect) Coronavirus HKU1 (PCR) Not detected (Not Detect) Coronavirus 229E (PCR) Not detected (Not Detect) SARS-CoV-2 (PCR) Not detected (Not Detecte) Coronavirus NL63 (PCR) Not detected (Not Detect) Human Metapneumovir PCR Not detected (Not Detect) Influenza Type A (PCR) Not detected (Not Detect) Influenza Type B (PCR) Not detected (Not Detect) M. pneumoniae (PCR) Not detected (Not Detect) Parainfluenza 1 (PCR) Not detected (Not Detect) Parainfluenza 2 (PCR) Not detected (Not Detect) Parainfluenza 3 (PCR) Not detected (Not Detect) Parainfluenza 4 (PCR) Not detected (Not Detect) RSV (PCR) Not detected (Not Detect) Entero/Rhino (PCR) Not detected (Not Detect) Blood Type Antibody Screen 10/02/24 Range/Units 19:30 WBC (4.5-11.0) X10^3/uL RBC (4.0-5.2) X10^6/uL Hgb (12.0-16.0) g/dL Hct (36-46) % MCV (80-100) fL MCH (26-34) PG MCHC (30-36) % RDW (11.6-14.8) % Plt Count (150-400) X10^3/uL Neut % (Auto) (50-75) % Lymph % (Auto) (25-40) % [place] % (Auto) (3-14) % Eos % (Auto) (2-4) % Baso % (Auto) (0-2) % Neut # (Auto) (3393-6532) /uL Lymph # (Auto) (7085-9562) /uL [place] # (Auto) (0-900) /uL Eos # (Auto) (0-450) /uL Baso # (Auto) (0-100) /uL PT (9.4-12.5) SECONDS INR (0.9-1.3) APTT (25.1-36.5) SECONDS Sodium (137-145) mmol/L Potassium (3.4-5.1) mmol/L Chloride (98-107) mmol/L Carbon Dioxide (22-32) mmol/L BUN (7-17) mg/dL Creatinine (0.52-1.04) mg/dL Estimated GFR (>60) mL/min BUN/Creatinine Ratio (6-22) Glucose (70-99) mg/dL Calcium (8.4-10.2) mg/dL Magnesium (1.6-2.3) mg/dL Total Bilirubin (0.2-1.3) mg/dL AST (14-36) IU/L ALT (<35) IU/L Alkaline Phosphatase (38-126) U/L Total Creatine Kinase (30-135) U/L Troponin I 0.046 H (0.01-0.034) ng/mL NT-Pro-B Natriuret Pep (<450) pg/mL Total Protein (6.3-8.2) g/dL Albumin (3.5-5.0) g/dL Globulin (1.7-4.1) g/dL Albumin/Globulin Ratio (1.0-2.8) Lipase (23-300) U/L Urine Color Urine Appearance Urine pH (4.5-8.0) Ur Specific [place] (1.000-1.035) Urine Protein (Negative) Urine Glucose (UA) (Negative) g/dL Urine Ketones (NEGATIVE) Urine Occult Blood (Negative) Urine Nitrate (Negative) Urine Bilirubin (NEGATIVE) Ur Bilirubin Confirm (Negative) Urine Urobilinogen (0.2) E.U./dL Ur Leukocyte Esterase (NEGATIVE) Urine RBC (0-5/HPF) Urine WBC (0-5/HPF) Ur Squamous Epith Cells (0-5/HPF) Ur Renal Epithelial Cell (0-1/HPF) Urine Bacteria (None) Ur Culture Indicated? Vol Urine Centrifuged Chlamy pneumoniae PCR (Not Detect) Adenovirus (PCR) (Not Detect) B. pertussis DNA (PCR) (Not Detect) B.parapertussis DNA PCR (Not Detecte) Coronavirus OC43 (PCR) (Not Detect) Coronavirus HKU1 (PCR) (Not Detect) Coronavirus 229E (PCR) (Not Detect) SARS-CoV-2 (PCR) (Not Detecte) Coronavirus NL63 (PCR) (Not Detect) Human Metapneumovir PCR (Not Detect) Influenza Type A (PCR) (Not Detect) Influenza Type B (PCR) (Not Detect) M. pneumoniae (PCR) (Not Detect) Parainfluenza 1 (PCR) (Not Detect) Parainfluenza 2 (PCR) (Not Detect) Parainfluenza 3 (PCR) (Not Detect) Parainfluenza 4 (PCR) (Not Detect) RSV (PCR) (Not Detect) Entero/Rhino (PCR) (Not Detect) Blood Type Antibody Screen Point of Care Testing Glucose POC 133 MDM Narrative Medical decision making narrative: In brief, this is a 78-year-old female with comorbidities as above here with weakness, transient vertigo, black stool/loose stool, acid reflux, recently started and self-discontinued sulfasalazine by her cable television access coordinator for her rheumatoid arthritis. In chart review: I see visit with Rheumatology on September 15 of this year. Impression was seropositive rheumatoid arthritis. See remark of in June had recent overdose of methotrexate due to taking it daily with issues of cytopenia but no transaminitis. Advised to change to leflunomide. Plan was to continue leflunomide 20 mg daily, continue prednisone 9 mg, add hydroxychloroquine and sulfasalazine On arrival to the emergency department, the patient is in no acute distress. Her abdominal exam is benign. Normal cardiopulmonary exam. She is noted to be slightly hypertensive Differential diagnoses considered but not limited to: Anemia, electrolyte or thyroid derangement, acute kidney injury, dehydration, upper GI bleed, ACS, PE. Presentation not consistent with central etiology of vertigo. Symptoms are more consistent with peripheral etiology as are precipitated with head movements or changes in body position Initial treatment plan includes: IV fluid bolus, IV ppi, IV Zofran, FOBT, laboratories, obtain EKG, CXR EKG 13 40: Normal sinus rhythm rate of 81, QRS normal 92, QTC of 422, normal axis. No ST segment elevation or depression Laboratories pertinent for: No leukocytosis, hemoglobin 13.7 which is actually improved from her baseline, platelets 161, normal coags, normal electrolytes, stable chronic kidney disease, glucose 140, calcium elevated at 11.4, lipase slightly elevated but not diagnostic for pancreatitis, there is some WBCs and moderate bacteria in urinalysis (specimen cultured) Initial troponin 0.026 and 2 hour troponin 0.035, rising Imaging pertinent for: No airspace consolidation or pleural effusion. There is questionable small nodular opacities in the left lower lung. Outpatient chest CT in about 1 month suggested I have asked ED supervisor personnel clerks to call cardiology for consultation regarding positive troponins with chest pain. On reassessment at 17 30 the patient feels slightly better after Pepto-Bismol. She attributes her chest discomfort to ?heartburn. ? We discussed her slightly positive troponin and plan to obtain a 3rd. We will also reach out to Cardiology regarding recommendations and possible need for inpatient evaluation, recommendation for heparinization although I think heparinization at this point I will hold off on given my concern for upper GI bleed. Patient is informed regarding her laboratory findings of note and her lung nodules noted on x-ray. She is now requiring 1-2L oxygen via [place], and given +troponins with CP with send for CTPE study. 1825: Patient signed out to me by Dr. 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 Came in presenting for multiple complaints, stating that she was feeling lightheaded dizziness as well as chest pressure/GERD like symptoms, as well as darker colored stool from her ostomy. Workup performed here shows stable hemoglobin however patient with up trending troponins, initial 0.026, repeat 0.035, repeat 0.043. Final disposition pending cardiac consult and possible admit versus transfer given up trending troponin, at this time we will hold off on anticoagulation. Patient also now requiring 2 L nasal cannula, CTA pending. 1841: CTA negative for PE 1949: Had a discussion with certified forklift operator Dr. Bahena, states that he currently agrees of holding anticoagulation, is stating to get 4th troponin and to call him back for further evaluation/recommendations. 2011: Discussed case with certified forklift operator Dr. Bahena, informed him of the 4th troponin, he states that given the fact that it was not significantly elevated would still hold off on anticoagulation given patient without any ischemic changes to EKG as well as no active chest pain, he states that patient does not require transfer at this time recommending trending troponin, states can admit here at [facility], he states that if patient's troponin starts to increase to call him for further recommendations at [phone] The patient's management plan was discussed Dr. Paulino, who agrees to admit the patient to their service and assumes care of this patient at this time. Full admission orders will be placed by the primary team. <Nathaniel Marina, DO - Last Filed: 10/02/24 20:44> Lab Data Labs: Lab Results 10/02/24 10/02/24 10/02/24 Range/Units 13:29 13:52 15:18 WBC 6.6 (4.5-11.0) X10^3/uL RBC 4.47 (4.0-5.2) X10^6/uL Hgb 13.7 (12.0-16.0) g/dL Hct 41.4 (36-46) % MCV 92.6 (80-100) fL MCH 30.6 (26-34) PG MCHC 33.1 (30-36) % RDW 14.8 (11.6-14.8) % Plt Count 161 (150-400) X10^3/uL Neut % (Auto) 82.6 H (50-75) % Lymph % (Auto) 8.6 L (25-40) % [place] % (Auto) 7.0 (3-14) % Eos % (Auto) 0.7 L (2-4) % Baso % (Auto) 1.1 (0-2) % Neut # (Auto) 5400 (1802-9638) /uL Lymph # (Auto) 600 L (1701-5287) /uL [place] # (Auto) 500 (0-900) /uL Eos # (Auto) 0 (0-450) /uL Baso # (Auto) 100 (0-100) /uL PT 10.4 (9.4-12.5) SECONDS INR 0.9 (0.9-1.3) APTT 33 (25.1-36.5) SECONDS Sodium 137 (137-145) mmol/L Potassium 4.2 (3.4-5.1) mmol/L Chloride 104 (98-107) mmol/L Carbon Dioxide 23 (22-32) mmol/L BUN 21 H (7-17) mg/dL Creatinine 1.19 H (0.52-1.04) mg/dL Estimated GFR 47 L (>60) mL/min BUN/Creatinine Ratio 17.6 (6-22) Glucose 140 H (70-99) mg/dL Calcium 11.4 H (8.4-10.2) mg/dL Magnesium 1.9 (1.6-2.3) mg/dL Total Bilirubin 0.9 (0.2-1.3) mg/dL AST 44 H (14-36) IU/L ALT 31 (<35) IU/L Alkaline Phosphatase 61 (38-126) U/L Total Creatine Kinase 302 H (30-135) U/L Troponin I 0.026 (0.01-0.034) ng/mL NT-Pro-B Natriuret Pep 302 (<450) pg/mL Total Protein 7.9 (6.3-8.2) g/dL Albumin 4.7 (3.5-5.0) g/dL Globulin 3.2 (1.7-4.1) g/dL Albumin/Globulin Ratio 1.5 (1.0-2.8) Lipase 307 H (23-300) U/L Urine Color Yellow Urine Appearance Clear Urine pH 6.0 (4.5-8.0) Ur Specific [place] 1.015 (1.000-1.035) Urine Protein 1+ H (Negative) Urine Glucose (UA) 3+ H (Negative) g/dL Urine Ketones 1+ H (NEGATIVE) Urine Occult Blood Trace-intact (Negative) Urine Nitrate Negative (Negative) Urine Bilirubin 1+ H (NEGATIVE) Ur Bilirubin Confirm Negative (Negative) Urine Urobilinogen 0.2 (0.2) E.U./dL Ur Leukocyte Esterase Negative (NEGATIVE) Urine RBC None seen (0-5/HPF) Urine WBC 5-10/hpf H (0-5/HPF) Ur Squamous Epith Cells None seen (0-5/HPF) Ur Renal Epithelial Cell 0-1/hpf (0-1/HPF) Urine Bacteria Moderate (10-30) H (None) Ur Culture Indicated? Specimen cultured Vol Urine Centrifuged 10ml (spun) Chlamy pneumoniae PCR (Not Detect) Adenovirus (PCR) (Not Detect) B. pertussis DNA (PCR) (Not Detect) B.parapertussis DNA PCR (Not Detecte) Coronavirus OC43 (PCR) (Not Detect) Coronavirus HKU1 (PCR) (Not Detect) Coronavirus 229E (PCR) (Not Detect) SARS-CoV-2 (PCR) (Not Detecte) Coronavirus NL63 (PCR) (Not Detect) Human Metapneumovir PCR (Not Detect) Influenza Type A (PCR) (Not Detect) Influenza Type B (PCR) (Not Detect) M. pneumoniae (PCR) (Not Detect) Parainfluenza 1 (PCR) (Not Detect) Parainfluenza 2 (PCR) (Not Detect) Parainfluenza 3 (PCR) (Not Detect) Parainfluenza 4 (PCR) (Not Detect) RSV (PCR) (Not Detect) Entero/Rhino (PCR) (Not Detect) Blood Type A Positive Antibody Screen Negative 10/02/24 10/02/24 10/02/24 Range/Units 15:27 17:22 19:05 WBC (4.5-11.0) X10^3/uL RBC (4.0-5.2) X10^6/uL Hgb (12.0-16.0) g/dL Hct (36-46) % MCV (80-100) fL MCH (26-34) PG MCHC (30-36) % RDW (11.6-14.8) % Plt Count (150-400) X10^3/uL Neut % (Auto) (50-75) % Lymph % (Auto) (25-40) % [place] % (Auto) (3-14) % Eos % (Auto) (2-4) % Baso % (Auto) (0-2) % Neut # (Auto) (4598-9459) /uL Lymph # (Auto) (7453-0643) /uL [place] # (Auto) (0-900) /uL Eos # (Auto) (0-450) /uL Baso # (Auto) (0-100) /uL PT (9.4-12.5) SECONDS INR (0.9-1.3) APTT (25.1-36.5) SECONDS Sodium (137-145) mmol/L Potassium (3.4-5.1) mmol/L Chloride (98-107) mmol/L Carbon Dioxide (22-32) mmol/L BUN (7-17) mg/dL Creatinine (0.52-1.04) mg/dL Estimated GFR (>60) mL/min BUN/Creatinine Ratio (6-22) Glucose (70-99) mg/dL Calcium (8.4-10.2) mg/dL Magnesium (1.6-2.3) mg/dL Total Bilirubin (0.2-1.3) mg/dL AST (14-36) IU/L ALT (<35) IU/L Alkaline Phosphatase (38-126) U/L Total Creatine Kinase (30-135) U/L Troponin I 0.035 H 0.043 H (0.01-0.034) ng/mL NT-Pro-B Natriuret Pep (<450) pg/mL Total Protein (6.3-8.2) g/dL Albumin (3.5-5.0) g/dL Globulin (1.7-4.1) g/dL Albumin/Globulin Ratio (1.0-2.8) Lipase (23-300) U/L Urine Color Urine Appearance Urine pH (4.5-8.0) Ur Specific [place] (1.000-1.035) Urine Protein (Negative) Urine Glucose (UA) (Negative) g/dL Urine Ketones (NEGATIVE) Urine Occult Blood (Negative) Urine Nitrate (Negative) Urine Bilirubin (NEGATIVE) Ur Bilirubin Confirm (Negative) Urine Urobilinogen (0.2) E.U./dL Ur Leukocyte Esterase (NEGATIVE) Urine RBC (0-5/HPF) Urine WBC (0-5/HPF) Ur Squamous Epith Cells (0-5/HPF) Ur Renal Epithelial Cell (0-1/HPF) Urine Bacteria (None) Ur Culture Indicated? Vol Urine Centrifuged Chlamy pneumoniae PCR Not detected (Not Detect) Adenovirus (PCR) Not detected (Not Detect) B. pertussis DNA (PCR) Not detected (Not Detect) B.parapertussis DNA PCR Not detected (Not Detecte) Coronavirus OC43 (PCR) Not detected (Not Detect) Coronavirus HKU1 (PCR) Not detected (Not Detect) Coronavirus 229E (PCR) Not detected (Not Detect) SARS-CoV-2 (PCR) Not detected (Not Detecte) Coronavirus NL63 (PCR) Not detected (Not Detect) Human Metapneumovir PCR Not detected (Not Detect) Influenza Type A (PCR) Not detected (Not Detect) Influenza Type B (PCR) Not detected (Not Detect) M. pneumoniae (PCR) Not detected (Not Detect) Parainfluenza 1 (PCR) Not detected (Not Detect) Parainfluenza 2 (PCR) Not detected (Not Detect) Parainfluenza 3 (PCR) Not detected (Not Detect) Parainfluenza 4 (PCR) Not detected (Not Detect) RSV (PCR) Not detected (Not Detect) Entero/Rhino (PCR) Not detected (Not Detect) Blood Type Antibody Screen 10/02/24 Range/Units 19:30 WBC (4.5-11.0) X10^3/uL RBC (4.0-5.2) X10^6/uL Hgb (12.0-16.0) g/dL Hct (36-46) % MCV (80-100) fL MCH (26-34) PG MCHC (30-36) % RDW (11.6-14.8) % Plt Count (150-400) X10^3/uL Neut % (Auto) (50-75) % Lymph % (Auto) (25-40) % [place] % (Auto) (3-14) % Eos % (Auto) (2-4) % Baso % (Auto) (0-2) % Neut # (Auto) (4645-7375) /uL Lymph # (Auto) (9847-6895) /uL [place] # (Auto) (0-900) /uL Eos # (Auto) (0-450) /uL Baso # (Auto) (0-100) /uL PT (9.4-12.5) SECONDS INR (0.9-1.3) APTT (25.1-36.5) SECONDS Sodium (137-145) mmol/L Potassium (3.4-5.1) mmol/L Chloride (98-107) mmol/L Carbon Dioxide (22-32) mmol/L BUN (7-17) mg/dL Creatinine (0.52-1.04) mg/dL Estimated GFR (>60) mL/min BUN/Creatinine Ratio (6-22) Glucose (70-99) mg/dL Calcium (8.4-10.2) mg/dL Magnesium (1.6-2.3) mg/dL Total Bilirubin (0.2-1.3) mg/dL AST (14-36) IU/L ALT (<35) IU/L Alkaline Phosphatase (38-126) U/L Total Creatine Kinase (30-135) U/L Troponin I 0.046 H (0.01-0.034) ng/mL NT-Pro-B Natriuret Pep (<450) pg/mL Total Protein (6.3-8.2) g/dL Albumin (3.5-5.0) g/dL Globulin (1.7-4.1) g/dL Albumin/Globulin Ratio (1.0-2.8) Lipase (23-300) U/L Urine Color Urine Appearance Urine pH (4.5-8.0) Ur Specific [place] (1.000-1.035) Urine Protein (Negative) Urine Glucose (UA) (Negative) g/dL Urine Ketones (NEGATIVE) Urine Occult Blood (Negative) Urine Nitrate (Negative) Urine Bilirubin (NEGATIVE) Ur Bilirubin Confirm (Negative) Urine Urobilinogen (0.2) E.U./dL Ur Leukocyte Esterase (NEGATIVE) Urine RBC (0-5/HPF) Urine WBC (0-5/HPF) Ur Squamous Epith Cells (0-5/HPF) Ur Renal Epithelial Cell (0-1/HPF) Urine Bacteria (None) Ur Culture Indicated? Vol Urine Centrifuged Chlamy pneumoniae PCR (Not Detect) Adenovirus (PCR) (Not Detect) B. pertussis DNA (PCR) (Not Detect) B.parapertussis DNA PCR (Not Detecte) Coronavirus OC43 (PCR) (Not Detect) Coronavirus HKU1 (PCR) (Not Detect) Coronavirus 229E (PCR) (Not Detect) SARS-CoV-2 (PCR) (Not Detecte) Coronavirus NL63 (PCR) (Not Detect) Human Metapneumovir PCR (Not Detect) Influenza Type A (PCR) (Not Detect) Influenza Type B (PCR) (Not Detect) M. pneumoniae (PCR) (Not Detect) Parainfluenza 1 (PCR) (Not Detect) Parainfluenza 2 (PCR) (Not Detect) Parainfluenza 3 (PCR) (Not Detect) Parainfluenza 4 (PCR) (Not Detect) RSV (PCR) (Not Detect) Entero/Rhino (PCR) (Not Detect) Blood Type Antibody Screen Point of Care Testing Glucose POC 133 Imaging Data CTA PE: Radiologist's Impression: [address] [address] [address] Scan Report Signed Patient: Madyson Ladd MR#: [id number] : 1945 Acct:[id number] Age/Sex: 78 / F Date of Service: 10/02/24 Loc: ED Accession Number: [id number] Procedure: CT angio chest PE protocol Ordering Provider: Krysten Cortez MD PROCEDURE: CT ANGIO CHEST PE PROTOCOL INDICATIONS: Chest pain, please evaluate for pulmonary embolism. TECHNIQUE: After the administration of intravenous contrast, 2 mm thick sections acquired from the pulmonary apices to the posterior costophrenic angles. 3-dimensional maximum intensity projection (MIP) coronal and sagittal reformats were then acquired through the thorax. For radiation dose reduction, the following was used: automated exposure control, adjustment of mA and/or kV according to patient size. COMPARISON: [facility], CR, XR CHEST 1V, 10/02/2024, 13:42. [facility], CT, CT CHEST ABD PEL W CON, 05/03/2018, 10:22. FINDINGS: Image quality: Diagnostic. Pulmonary arteries: Pulmonary arteries are normal in size, and demonstrate no intraluminal filling defects to suggest central pulmonary embolism. Lower Neck: No enlarged lymph nodes. Thyroid: The thyroid is not well seen. Axillae: No enlarged lymph nodes. Chest Wall: Unremarkable. Bones: Age-appropriate bony degenerative changes are seen. Mild dextroconvex scoliotic curvature is seen. Lungs and Pleura: No pneumothorax or pleural effusions. No consolidation or suspicious nodules. Heart: Heart size is normal. No pericardial effusion. Thoracic Vessels: No aortic aneurysm. Mediastinum and Bren: No enlarged lymph nodes. Esophagus: No wall thickening. There is a small hiatal hernia. Upper Abdomen: Cholecystectomy clips are seen. Visualized upper abdomen solid organs and bowel loops appear normal. IMPRESSION: No pulmonary embolus. No acute cardiopulmonary process. Additional findings: Thyroid not well seen, please correlate with known patient history. Small hiatal hernia Cholecystectomy Dextroconvex scoliotic curvature MDM Narrative Medical decision making narrative: In brief, this is a 78-year-old female with comorbidities as above here with weakness, transient vertigo, black stool/loose stool, acid reflux, recently started and self-discontinued sulfasalazine by her cable television access coordinator for her rheumatoid arthritis. In chart review: IC visit with Rheumatology on September 15 of this year. Impression was seropositive rheumatoid arthritis. See remark of in June had recent overdose of methotrexate due to taking it daily with issues of cytopenia but no transaminitis. Advised to change to leflunomide. Plan was to continue leflunomide 20 mg daily, continue prednisone 9 mg, add hydroxychloroquine and sulfasalazine On arrival to the emergency department, the patient is in no acute distress. Her abdominal exam is benign. Normal cardiopulmonary exam. She is noted to be slightly hypertensive Differential diagnoses considered but not limited to: Anemia, electrolyte or thyroid derangement, acute kidney injury, dehydration. Presentation not consistent with central etiology of vertigo. Symptoms are more consistent with peripheral etiology as are precipitated with head movements or changes in body position Initial treatment plan includes: IV fluid bolus, IV ppi, IV Zofran, sudden laboratories, obtain EKG EKG 13 40: Normal sinus rhythm rate of 81, QRS normal 92, QTC of 422, normal axis. No ST segment elevation or depression Laboratories pertinent for: No leukocytosis, hemoglobin 13.7 which is actually improved from her baseline, platelets 161, normal coags, normal electrolytes, stable chronic kidney disease, glucose 140, calcium elevated at 11.4, lipase slightly elevated but not diagnostic for pancreatitis, there is some WBCs and moderate bacteria in urinalysis (specimen cultured) Initial troponin 0.026 and 2 hour troponin 0.035, rising Imaging pertinent for: No airspace consolidation or pleural effusion. There is questionable small nodular opacities in the left lower lung. Outpatient chest CT in about 1 month suggested Spoke with cyber security consultant at regarding On reassessment at 17 30 the patient feels slightly better after Pepto-Bismol. She attributes her chest discomfort to ?heartburn. ? We discussed her slightly positive troponin and plan to obtain a 3rd. We will also reach out to Cardiology regarding recommendations and possible need for inpatient evaluation, recommendation for heparinization although I think heparinization at this point I will hold off on given my concern for upper GI bleed. Patient is informed regarding her laboratory findings of note and her lung nodules noted on x-ray Return precautions discussed and provided prior to discharge Pertinent scoring tools used to guide clinical decision making, if applicable: 1825: Patient signed out to me by Dr. 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 Came in presenting for multiple complaints, stating that she was feeling lightheaded dizziness as well as chest pressure/GERD like symptoms, as well as darker colored stool from her ostomy. Workup performed here shows stable hemoglobin however patient with up trending troponins, initial 0.026, repeat 0.035, repeat 0.043. Final disposition pending cardiac consult and possible admit versus transfer given up trending troponin, at this time we will hold off on anticoagulation. Patient also now requiring 2 L nasal cannula, CTA pending. 1841: CTA negative for PE 1950: Had a discussion with certified forklift operator Dr. Bahena, states that he currently agrees of holding anticoagulation, is stating to get 4th troponin and to call him back for further evaluation/recommendations. 2012: Discussed case with certified forklift operator Dr. Bahena, informed him of the 4th troponin, he states that given the fact that it was not significantly elevated would still hold off on anticoagulation given patient without any ischemic changes to EKG as well as no active chest pain, he states that patient does not require transfer at this time recommending trending troponin, states can admit here at [facility], he states that if patient's troponin starts to increase to call him for further recommendations at [phone] The patient's management plan was discussed Dr. Paulino, who agrees to admit the patient to their service and assumes care of this patient at this time. Full admission orders will be placed by the primary team. Discharge Plan Departure Patient Disposition: Admitted As Inpatient Clinical Impression: Acute hypoxemic respiratory failure, Elevated troponin Admit Date/Time: 10/02/24 20:27 Admit Provider: Zan Paulino
[2024-10-02] MEDS: PANTOPRAZOLE 40 MG VIAL 80 MG IV (14:54)
[2024-10-02] MEDS: ONDANSETRON 4 MG/2 ML INJ IV (14:54)
[2024-10-02] MEDS: SODIUM CHLORIDE 0.9% 1,000 ML 1000 ML IV (14:55)
[2024-10-02 15:30] LABS: Appearance Urine UA CLEAR; Bilirubin Urine UA 1+ (NEGATIVE); Color Urine UA YELLOW; Glucose Urine UA 3+ g/dL (Negative); Ketones Urine UA 1+ (NEGATIVE); Leukocyte Esterase Urine UA NEGATIVE (NEGATIVE); Nitrite Urine UA NEGATIVE (Negative); Occult Blood Urine UA TRACE-INTACT (Negative); Protein Urine UA 1+ (Negative); Specific Gravity Urine UA 1.015 (1.000-1.035); Urobilinogen Urine UA 0.2 E.U./dL (0.2)
[2024-10-02 15:34] LABS: Ictotest Urine Negative (Negative)
[2024-10-02 15:58] LABS: RBC Urine None Seen (0-5/HPF); Urine Volume 10mL (spun)
[2024-10-02 16:02] LABS: WBC Urine 5-10/HPF (0-5/HPF)
[2024-10-02 16:03] LABS: Bacteria Urine Moderate (10-30); Squamous Epithelial Cell Urine None Seen (0-5/HPF)
[2024-10-02 16:04] LABS: Culture Indicated Urine Specimen Cultured; Renal Epithelial Cells Urine 0-1/HPF (0-1/HPF)
[2024-10-02 16:09] LABS: Troponin I 0.035 ng/mL (0.01-0.034)
[2024-10-02 18:00] LABS: Troponin I 0.043 ng/mL (0.01-0.034)
--- NOTE | 2024-10-02 18:05 | DI.CT.S_ITS ---
PROCEDURE: CT ANGIO CHEST PE PROTOCOL INDICATIONS: Chest pain, please evaluate for pulmonary embolism. TECHNIQUE: After the administration of intravenous contrast, 2 mm thick sections acquired from the pulmonary apices to the posterior costophrenic angles. 3-dimensional maximum intensity projection (MIP) coronal and sagittal reformats were then acquired through the thorax. For radiation dose reduction, the following was used: automated exposure control, adjustment of mA and/or kV according to patient size. COMPARISON: [facility], CR, XR CHEST 1V, 10/02/2024, 13:42. [facility], CT, CT CHEST ABD PEL W CON, 05/03/2018, 10:22. FINDINGS: Image quality: Diagnostic. Pulmonary arteries: Pulmonary arteries are normal in size, and demonstrate no intraluminal filling defects to suggest central pulmonary embolism. Lower Neck: No enlarged lymph nodes. Thyroid: The thyroid is not well seen. Axillae: No enlarged lymph nodes. Chest Wall: Unremarkable. Bones: Age-appropriate bony degenerative changes are seen. Mild dextroconvex scoliotic curvature is seen. Lungs and Pleura: No pneumothorax or pleural effusions. No consolidation or suspicious nodules. Heart: Heart size is normal. No pericardial effusion. Thoracic Vessels: No aortic aneurysm. Mediastinum and Bren: No enlarged lymph nodes. Esophagus: No wall thickening. There is a small hiatal hernia. Upper Abdomen: Cholecystectomy clips are seen. Visualized upper abdomen solid organs and bowel loops appear normal. IMPRESSION: No pulmonary embolus. No acute cardiopulmonary process. Additional findings: Thyroid not well seen, please correlate with known patient history. Small hiatal hernia Cholecystectomy Dextroconvex scoliotic curvature Dictated by: Barrera Bay M.D. on 10/02/2024 at 17:35 Approved by: Barrera Bay M.D. on 10/02/2024 at 17:37
[2024-10-02 19:56] LABS: Adenovirus Not Detected (Not Detect); B. parapertussis Not Detected (Not Detecte); Bordetella pertussis Not Detected (Not Detect); Chlamydophila pneumoniae Not Detected (Not Detect); Coronavirus 229E Not Detected (Not Detect); Coronavirus HKU1 Not Detected (Not Detect); Coronavirus NL 63 Not Detected (Not Detect); Coronavirus OC43 Not Detected (Not Detect); Human Metapneumovirus Not Detected (Not Detect); Human Rhinovirus/Enterovirus Not Detected (Not Detect); Influenza A Not Detected (Not Detect); Influenza B Not Detected (Not Detect); Mycoplasma pneumoniae Not Detected (Not Detect); Parainfluenza Virus 1 Not Detected (Not Detect); Parainfluenza Virus 2 Not Detected (Not Detect); Parainfluenza Virus 3 Not Detected (Not Detect); Parainfluenza Virus 4 Not Detected (Not Detect); Respiratory Syncytial Virus Not Detected (Not Detect); SARS- CoV-2 Not Detected (Not Detecte)
[2024-10-02 20:01] LABS: Troponin I 0.046 ng/mL (0.01-0.034)
[2024-10-02] MEDS: ATORVASTATIN 20 MG TABLET 40 MG PO (22:39)
--- NOTE | 2024-10-02 23:12 | PM.HP.1 ---
History of Present Illness History of Present Illness Date Patient Seen: 10/02/24 Time Patient Seen: 23:12 Date of Onset of Symptoms: 09/29/24 Chief complaint: Nausea, Dizzyness, Excessive Sleeping, Black Stool Narrative: The pt is a 78 yo who presents to the ER with symptoms of extreme fatigue but better today, she states she is sleeping 20 hours a day, dizziness that is worse when standing or changing positions of her head, nausea and vomited twice at home. Madyson was dx with RA this year and was placed on low dose prednisone daily and was tried on methotrexate but this lead to her being hospitalized in June. She was started on Sulfasalazine last week just prior to the onset of the symtpoms. The pt has been taking 'Pepto-bismol' frequently over the past 2 days because of the nausea and subsequently she reports having a black tongue and black output from her osteomy bag. The pt has a hx of adenocarcinoma of the colon with resection and has a colonostomy & urostomy. The pt denies any CP, chest pressure, palpatations, SOB, dyspnea, cough, recent URI symtpoms, PFSH Medical History Abnormal Pap smear of cervix (~1978) Acquired hypothyroidism Anemia (~1966) B12 deficiency Cataracts, bilateral (~2019) Chicken pox Chronic kidney disease, stage 3b Colon polyps (~1993) Depression, recurrent (~1984) Essential hypertension Hemorrhoid History of blood clots History of cervical cancer (~1979) History of colon cancer (~1993) History of colon polyps HTN (hypertension) Hyperlipidemia Hypothyroidism (~1999) Kidney disease (~1995) Limp Measles Migraines Mixed hyperlipidemia Mumps Numerous moles Obstructive sleep apnea (adult) (pediatric) Polymyalgia rheumatica Polyneuropathy, unspecified Primary osteoarthritis involving multiple joints Rheumatoid arthritis Rubella Scoliosis 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 Grandmother Diabetes mellitus Social History household members: spouse Smoking Status: Current some day smoker Meds Home Medications and Allergies Home Medications ?Medication ?Instructions ?Recorded ?Confirmed ?Type aspirin 81 mg tablet,delayed 81 mg PO DAILY 04/28/18 10/02/24 History release acetaminophen 500 mg tablet 500 mg PO TID 05/20/18 10/02/24 History (Tylenol Extra Strength) ascorbic acid (vitamin C) 500 mg 500 mg PO DAILY 01/23/21 10/02/24 History tablet (Vitamin C) cholecalciferol (vitamin D3) 50 50 mcg PO DAILY 01/23/21 10/02/24 History mcg (2,000 unit) capsule (Vitamin D3) Parking Permit... #1 ea 06/30/23 06/02/24 Rx metformin 500 mg tablet 1,000 mg (2 x 500 mg) PO BID #360 11/11/23 10/02/24 Rx tabs levothyroxine 112 mcg tablet 112 mcg PO DAILY #90 tabs 01/04/24 10/02/24 Rx blood-glucose sensor (Dexcom G7 #1 ea 02/24/24 10/02/24 Rx Sensor device) blood-glucose,onion tier,cont #1 ea 02/24/24 10/02/24 Rx (Dexcom G7 Veterinary Medicine Teacher) gabapentin 100 mg capsule 500 mg (5 x 100 mg) PO DAILY #450 03/09/24 10/02/24 Rx caps losartan 50 mg tablet 50 mg PO DAILY #90 tabs 04/11/24 10/02/24 Rx sertraline 50 mg tablet 50 mg PO QPM #90 tabs 06/20/24 10/02/24 Rx leflunomide 20 mg tablet 20 mg PO DAILY 08/01/24 10/02/24 History empagliflozin 25 mg tablet 25 mg PO DAILY #90 tabs 09/19/24 10/02/24 Rx (Jardiance) Tresiba U-100 Insulin 10/02/24 History rosuvastatin 20 mg tablet 20 mg PO QPM 10/02/24 10/02/24 History Allergies Allergy/AdvReac Type Severity Reaction Status Date / Time diphenhydramine AdvReac Intermediate Agitated Verified 10/02/24 13:09 lisinopril AdvReac Cough Verified 10/02/24 13:09 Exam Vital Signs (past 8 hours): - 10/02/24 15:30 10/02/24 16:01 10/02/24 16:30 Temperature Pulse Rate 68 71 72 Respiratory Rate Blood Pressure 142/102 H 176/74 H 175/85 H Pulse Oximetry 94 97 96 Oxygen Delivery Method Oxygen Flow Rate 10/02/24 17:00 10/02/24 17:30 10/02/24 18:01 Temperature Pulse Rate 71 75 77 Respiratory Rate 16 16 Blood Pressure 154/67 H 148/65 H 146/64 H Pulse Oximetry 95 92 91 Oxygen Delivery Method Room Air Room Air Oxygen Flow Rate 10/02/24 19:29 10/02/24 19:29 10/02/24 19:30 Temperature Pulse Rate 67 Respiratory Rate 14 Blood Pressure 159/98 H 154/76 H Pulse Oximetry 93 Oxygen Delivery Method Oxygen Flow Rate 10/02/24 19:30 10/02/24 20:00 10/02/24 20:00 Temperature Pulse Rate 69 61 Respiratory Rate 18 Blood Pressure 157/70 H Pulse Oximetry 93 92 Oxygen Delivery Method Nasal Cannula Oxygen Flow Rate 1 10/02/24 20:29 10/02/24 20:30 10/02/24 20:54 Temperature 97.4 F L Pulse Rate 65 71 Respiratory Rate 24 19 Blood Pressure 153/69 H 150/73 H Pulse Oximetry 96 93 96 Oxygen Delivery Method Nasal Cannula Nasal Cannula Oxygen Flow Rate 1 1 1 Oxygen Delivery Method Nasal Cannula Oxygen Flow Rate 1 Const General: cooperative, healthy appearing and comfortable Orientation: alert and oriented x3 Resp Auscultation: clear to auscultation bilaterally Cardio Rate: regular rate Rhythm: regular rhythm Objective Labs 10/02/24 13:52 10/02/24 13:29 Labs: Laboratory Results - last 24 hr 10/02/24 10/02/24 10/02/24 13:29 13:52 15:18 WBC 6.6 RBC 4.47 Hgb 13.7 Hct 41.4 MCV 92.6 MCH 30.6 MCHC 33.1 RDW 14.8 Plt Count 161 Neut % (Auto) 82.6 H Lymph % (Auto) 8.6 L Schleicher % (Auto) 7.0 Eos % (Auto) 0.7 L Baso % (Auto) 1.1 Neut # (Auto) 5400 Lymph # (Auto) 600 L Schleicher # (Auto) 500 Eos # (Auto) 0 Baso # (Auto) 100 PT 10.4 INR 0.9 APTT 33 Sodium 137 Potassium 4.2 Chloride 104 Carbon Dioxide 23 BUN 21 H Creatinine 1.19 H Estimated GFR 47 L BUN/Creatinine Ratio 17.6 Glucose 140 H Calcium 11.4 H Magnesium 1.9 Total Bilirubin 0.9 AST 44 H ALT 31 Alkaline Phosphatase 61 Total Creatine Kinase 302 H Troponin I 0.026 NT-Pro-B Natriuret Pep 302 Total Protein 7.9 Albumin 4.7 Globulin 3.2 Albumin/Globulin Ratio 1.5 Lipase 307 H Urine Color Yellow Urine Appearance Clear Urine pH 6.0 Ur Specific Dickinson 1.015 Urine Protein 1+ H Urine Glucose (UA) 3+ H Urine Ketones 1+ H Urine Occult Blood Trace-intact Urine Nitrate Negative Urine Bilirubin 1+ H Ur Bilirubin Confirm Negative Urine Urobilinogen 0.2 Ur Leukocyte Esterase Negative Urine RBC None seen Urine WBC 5-10/hpf H Ur Squamous Epith Cells None seen Ur Renal Epithelial Cell 0-1/hpf Urine Bacteria Moderate (10-30) H Ur Culture Indicated? Specimen cultured Vol Urine Centrifuged 10ml (spun) Chlamy pneumoniae PCR Adenovirus (PCR) B. pertussis DNA (PCR) B.parapertussis DNA PCR Coronavirus OC43 (PCR) Coronavirus HKU1 (PCR) Coronavirus 229E (PCR) SARS-CoV-2 (PCR) Coronavirus NL63 (PCR) Human Metapneumovir PCR Influenza Type A (PCR) Influenza Type B (PCR) M. pneumoniae (PCR) Parainfluenza 1 (PCR) Parainfluenza 2 (PCR) Parainfluenza 3 (PCR) Parainfluenza 4 (PCR) RSV (PCR) Entero/Rhino (PCR) Blood Type A Positive Antibody Screen Negative 10/02/24 10/02/24 10/02/24 15:27 17:22 19:05 WBC RBC Hgb Hct MCV MCH MCHC RDW Plt Count Neut % (Auto) Lymph % (Auto) Schleicher % (Auto) Eos % (Auto) Baso % (Auto) Neut # (Auto) Lymph # (Auto) Schleicher # (Auto) Eos # (Auto) Baso # (Auto) PT INR APTT Sodium Potassium Chloride Carbon Dioxide BUN Creatinine Estimated GFR BUN/Creatinine Ratio Glucose Calcium Magnesium Total Bilirubin AST ALT Alkaline Phosphatase Total Creatine Kinase Troponin I 0.035 H 0.043 H NT-Pro-B Natriuret Pep Total Protein Albumin Globulin Albumin/Globulin Ratio Lipase Urine Color Urine Appearance Urine pH Ur Specific Dickinson Urine Protein Urine Glucose (UA) Urine Ketones Urine Occult Blood Urine Nitrate Urine Bilirubin Ur Bilirubin Confirm Urine Urobilinogen Ur Leukocyte Esterase Urine RBC Urine WBC Ur Squamous Epith Cells Ur Renal Epithelial Cell Urine Bacteria Ur Culture Indicated? Vol Urine Centrifuged Chlamy pneumoniae PCR Not detected Adenovirus (PCR) Not detected B. pertussis DNA (PCR) Not detected B.parapertussis DNA PCR Not detected Coronavirus OC43 (PCR) Not detected Coronavirus HKU1 (PCR) Not detected Coronavirus 229E (PCR) Not detected SARS-CoV-2 (PCR) Not detected Coronavirus NL63 (PCR) Not detected Human Metapneumovir PCR Not detected Influenza Type A (PCR) Not detected Influenza Type B (PCR) Not detected M. pneumoniae (PCR) Not detected Parainfluenza 1 (PCR) Not detected Parainfluenza 2 (PCR) Not detected Parainfluenza 3 (PCR) Not detected Parainfluenza 4 (PCR) Not detected RSV (PCR) Not detected Entero/Rhino (PCR) Not detected Blood Type Antibody Screen 10/02/24 19:30 WBC RBC Hgb Hct MCV MCH MCHC RDW Plt Count Neut % (Auto) Lymph % (Auto) Schleicher % (Auto) Eos % (Auto) Baso % (Auto) Neut # (Auto) Lymph # (Auto) Schleicher # (Auto) Eos # (Auto) Baso # (Auto) PT INR APTT Sodium Potassium Chloride Carbon Dioxide BUN Creatinine Estimated GFR BUN/Creatinine Ratio Glucose Calcium Magnesium Total Bilirubin AST ALT Alkaline Phosphatase Total Creatine Kinase Troponin I 0.046 H NT-Pro-B Natriuret Pep Total Protein Albumin Globulin Albumin/Globulin Ratio Lipase Urine Color Urine Appearance Urine pH Ur Specific Dickinson Urine Protein Urine Glucose (UA) Urine Ketones Urine Occult Blood Urine Nitrate Urine Bilirubin Ur Bilirubin Confirm Urine Urobilinogen Ur Leukocyte Esterase Urine RBC Urine WBC Ur Squamous Epith Cells Ur Renal Epithelial Cell Urine Bacteria Ur Culture Indicated? Vol Urine Centrifuged Chlamy pneumoniae PCR Adenovirus (PCR) B. pertussis DNA (PCR) B.parapertussis DNA PCR Coronavirus OC43 (PCR) Coronavirus HKU1 (PCR) Coronavirus 229E (PCR) SARS-CoV-2 (PCR) Coronavirus NL63 (PCR) Human Metapneumovir PCR Influenza Type A (PCR) Influenza Type B (PCR) M. pneumoniae (PCR) Parainfluenza 1 (PCR) Parainfluenza 2 (PCR) Parainfluenza 3 (PCR) Parainfluenza 4 (PCR) RSV (PCR) Entero/Rhino (PCR) Blood Type Antibody Screen Assessment & Plan Assessment & Plan narrative: 1. Hypoxia- the pt is asymptomatic and does not c/o SOB but in ER was reported as requiring needing oxygen. A CT chest showed no PE, no infiltrates, normal findings. Will try to wean off, ABG ordered for the morning. 2. Elevated troponin - asymptomatic, on telemetry, very minimally elevated, will trend overnight, 0.04 in ER, ER provider did contact the director supply chain on -call who did not recommend any intervention at this time. Heparin order for DVT prophlaxsis since I feel the black stool the pt reports is from all of the Pepto-bismol taking prior. 3. Dizziness- uncertain cause of this, could be vertigo, PT consulted, pt states she is feeling better today. 4. Rheumatoid Arthritis- continuing home meds, holding Sulfsalazine I have discussed the pt's presenting symptoms with the ER provider and agree with the decision for admission. I have personnaly reviewed the labs and imaging myself. I, Dr. France Paulino in [place], has seen and evaluated Madyson Ladd in [place] using all technology and equipment of telemedicine with the patient's consent and also with nursing assistance Time-Based Coding :: [TOTAL MINUTES] spent with patient and on the chart (including review of chart, obtaining history, exam, reviewing outside data, placing orders, documenting exam and treatment plan, and counseling patient) on [DATE].
[2024-10-03 00:29] VITALS: O2SAT 92
--- NOTE | 2024-10-03 03:01 | PC.NURSE ---
Addendum entered by Danielle Wang R.N. 10/03/24 03:23: Colostomy & urostomy bag in place, changed 10/01 per patient. Original Note: manufacturing shift supervisor: Patient arrived from ED approximately 2200, ambulated w/ SBA to bed. Patient is AxOx4, VSS, >92% on 1LNC when sleeping, RA when awake. Denies current CP, nausea, SOB. Reports feeling fatigued. MD Paulino spoke with patient via [facility]. notified of troponin results. Cont tele in place. Oriented to call-light, plan of care ongoing.
[2024-10-03 04:00] VITALS: O2SAT 95
[2024-10-03 05:20] VITALS: BP 151/78; PULSE 77; RESP 16; TEMP 36.8; O2SAT 93
[2024-10-03] MEDS: PANTOPRAZOLE DR 20 MG TABLET 40 MG PO (05:26)
[2024-10-03] MEDS: LEVOTHYROXINE 112 MCG TABLET PO (05:26)
[2024-10-03 06:14] LABS: Add Manual Diff / Slide Review NO; Basophils Absolute Auto 0 /uL (0-100); Basophils Percent Auto 1.1 % (0-2); Eosinophils Absolute Auto 100 /uL (0-450); Eosinophils Percent Auto 1.8 % (2-4); Hematocrit 36.3 % (36-46); Lymphocytes Absolute Auto 1000 /uL (1100-4500); Lymphocytes Percent Auto 24.3 % (25-40); Mean Corpuscular HGB Conc 33.1 % (30-36); Mean Corpuscular Hemoglobin 30.8 PG (26-34); Mean Corpuscular Volume 93.2 fL (80-100); Monocytes Absolute Auto 600 /uL (0-900); Monocytes Percent Auto 13.5 % (3-14); Neutrophils Absolute Auto 2500 /uL (1500-7000); Neutrophils Percent Auto 59.3 % (50-75); Platelet Count 134 X10^3/uL (150-400); White Blood Cell Count 4.1 X10^3/uL (4.5-11.0)
[2024-10-03 06:48] LABS: NT-proBNP (BNP-Adult 18+) 256 pg/mL (<450)
[2024-10-03 06:51] LABS: Troponin I 0.035 ng/mL (0.01-0.034)
[2024-10-03 07:08] LABS: BUN Creatinine Ratio 16.7 (6-22); Blood Urea Nitrogen 18 mg/dL (7-17); Calcium 9.7 mg/dL (8.4-10.2); Carbon Dioxide 24 mmol/L (22-32); Chloride 108 mmol/L (98-107); Cholesterol 129 mg/dL (140-199); Estimated Glomerular Filt Rate 53 mL/min (>60); Glucose 84 mg/dL (70-99); HDL Cholesterol 65 mg/dL (40-60); HEMOLYSIS < 15 (0-50); LDL Cholesterol Calculated 29 mg/dL (<100); Potassium 3.7 mmol/L (3.4-5.1); Sodium 137 mmol/L (137-145); Triglycerides 176 mg/dL (35-150)
[2024-10-03 08:00] VITALS: BP 138/71; PULSE 76; RESP 16; TEMP 36.8; O2SAT 94
--- NOTE | 2024-10-03 09:38 | PM.DS.1 ---
History of Present Illness History of Present Illness Date Patient Seen: 10/03/24 Chief complaint: Nausea, Dizzyness, Excessive Sleeping, Black Stool Narrative: Chief complaint: Nausea, Dizzyness, Excessive Sleeping, Black Stool History of present illness: The pt is a 78 yo who presents to the ER with symptoms of extreme fatigue but better today, she states she is sleeping 20 hours a day, dizziness that is worse when standing or changing positions of her head, nausea and vomited twice at home. Madsyon was dx with RA this year and was placed on low dose prednisone daily and was tried on methotrexate but this lead to her being hospitalized in June. She was started on Sulfasalazine last week just prior to the onset of the symtpoms. The pt has been taking 'Pepto-bismol' frequently over the past 2 days because of the nausea and subsequently she reports having a black tongue and black output from her osteomy bag. The pt has a hx of adenocarcinoma of the colon with resection and has a colonostomy & urostomy. The pt denies any CP, chest pressure, palpatations, SOB, dyspnea, cough, recent URI symtpoms, Hospital course: Patient was no longer symptomatic over the hospital course symptoms have all resolved vital signs are stable Patient has an appointment with her primary care Dr. Avila in the morning tomorrow 10/04 Review of systems: No headache diplopia blurred vision No difficulty swallowing No nausea vomiting diarrhea No urinary symptom No paresthesia paresis Physical exam: No acute distress HEENT unremarkable No labored respiration Moves all extremities Assessment and plan: 1. Hypoxia-resolved the pt is asymptomatic and does not c/o SOB but in ER was reported as requiring needing oxygen. A CT chest showed no PE, no infiltrates, normal findings. Discharged home 2. Elevated troponin - asymptomatic, on telemetry, very minimally elevated, will trend overnight, 0.04 in ER, ER provider did contact the food service agent on -call who did not recommend any intervention at this time. Heparin order for DVT prophlaxsis since I feel the black stool the pt reports is from all of the Pepto-bismol taking prior. 3. Dizziness- uncertain cause of this, could be vertigo, PT consulted, pt states she is feeling better today. 4. Rheumatoid Arthritis- continuing home meds, holding Sulfsalazine Discharge Providers Provider Date of admission: 10/02/24 20:27 Discharge Date: 10/03/24 Primary care physician: Karlos Avila MD Consults: 10/02/24 20:33 Consult to Physical Therapy Evaluate & Treat Comment: vertigo Physician Instructions: Evaluate and Treat Discharge provider: Greg Bradshaw MD Exam Vital Signs (past 8 hours): - 10/03/24 04:00 10/03/24 05:20 10/03/24 08:00 Temperature 98.2 F 98.2 F Pulse Rate 77 76 Respiratory Rate 16 16 Blood Pressure 151/78 H 138/71 Pulse Oximetry 95 93 94 Oxygen Delivery Method Room Air Oxygen Flow Rate 0 0 0 Oxygen Delivery Method Room Air Oxygen Flow Rate 0 Objective Labs 10/03/24 05:55 10/03/24 05:55 Labs: Laboratory Results - last 24 hr 10/02/24 10/02/24 10/02/24 13:29 13:52 15:18 WBC 6.6 RBC 4.47 Hgb 13.7 Hct 41.4 MCV 92.6 MCH 30.6 MCHC 33.1 RDW 14.8 Plt Count 161 Neut % (Auto) 82.6 H Lymph % (Auto) 8.6 L Lewis % (Auto) 7.0 Eos % (Auto) 0.7 L Baso % (Auto) 1.1 Neut # (Auto) 5400 Lymph # (Auto) 600 L Lewis # (Auto) 500 Eos # (Auto) 0 Baso # (Auto) 100 PT 10.4 INR 0.9 APTT 33 Sodium 137 Potassium 4.2 Chloride 104 Carbon Dioxide 23 BUN 21 H Creatinine 1.19 H Estimated GFR 47 L BUN/Creatinine Ratio 17.6 Glucose 140 H Calcium 11.4 H Magnesium 1.9 Total Bilirubin 0.9 AST 44 H ALT 31 Alkaline Phosphatase 61 Total Creatine Kinase 302 H Troponin I 0.026 NT-Pro-B Natriuret Pep 302 Total Protein 7.9 Albumin 4.7 Globulin 3.2 Albumin/Globulin Ratio 1.5 Triglycerides Cholesterol LDL Cholesterol, Calc HDL Cholesterol Lipase 307 H Urine Color Yellow Urine Appearance Clear Urine pH 6.0 Ur Specific Mooers 1.015 Urine Protein 1+ H Urine Glucose (UA) 3+ H Urine Ketones 1+ H Urine Occult Blood Trace-intact Urine Nitrate Negative Urine Bilirubin 1+ H Ur Bilirubin Confirm Negative Urine Urobilinogen 0.2 Ur Leukocyte Esterase Negative Urine RBC None seen Urine WBC 5-10/hpf H Ur Squamous Epith Cells None seen Ur Renal Epithelial Cell 0-1/hpf Urine Bacteria Moderate (10-30) H Ur Culture Indicated? Specimen cultured Vol Urine Centrifuged 10ml (spun) Chlamy pneumoniae PCR Adenovirus (PCR) B. pertussis DNA (PCR) B.parapertussis DNA PCR Coronavirus OC43 (PCR) Coronavirus HKU1 (PCR) Coronavirus 229E (PCR) SARS-CoV-2 (PCR) Coronavirus NL63 (PCR) Human Metapneumovir PCR Influenza Type A (PCR) Influenza Type B (PCR) M. pneumoniae (PCR) Parainfluenza 1 (PCR) Parainfluenza 2 (PCR) Parainfluenza 3 (PCR) Parainfluenza 4 (PCR) RSV (PCR) Entero/Rhino (PCR) Blood Type A Positive Antibody Screen Negative 10/02/24 10/02/24 10/02/24 15:27 17:22 19:05 WBC RBC Hgb Hct MCV MCH MCHC RDW Plt Count Neut % (Auto) Lymph % (Auto) Lewis % (Auto) Eos % (Auto) Baso % (Auto) Neut # (Auto) Lymph # (Auto) Lewis # (Auto) Eos # (Auto) Baso # (Auto) PT INR APTT Sodium Potassium Chloride Carbon Dioxide BUN Creatinine Estimated GFR BUN/Creatinine Ratio Glucose Calcium Magnesium Total Bilirubin AST ALT Alkaline Phosphatase Total Creatine Kinase Troponin I 0.035 H 0.043 H NT-Pro-B Natriuret Pep Total Protein Albumin Globulin Albumin/Globulin Ratio Triglycerides Cholesterol LDL Cholesterol, Calc HDL Cholesterol Lipase Urine Color Urine Appearance Urine pH Ur Specific Mooers Urine Protein Urine Glucose (UA) Urine Ketones Urine Occult Blood Urine Nitrate Urine Bilirubin Ur Bilirubin Confirm Urine Urobilinogen Ur Leukocyte Esterase Urine RBC Urine WBC Ur Squamous Epith Cells Ur Renal Epithelial Cell Urine Bacteria Ur Culture Indicated? Vol Urine Centrifuged Chlamy pneumoniae PCR Not detected Adenovirus (PCR) Not detected B. pertussis DNA (PCR) Not detected B.parapertussis DNA PCR Not detected Coronavirus OC43 (PCR) Not detected Coronavirus HKU1 (PCR) Not detected Coronavirus 229E (PCR) Not detected SARS-CoV-2 (PCR) Not detected Coronavirus NL63 (PCR) Not detected Human Metapneumovir PCR Not detected Influenza Type A (PCR) Not detected Influenza Type B (PCR) Not detected M. pneumoniae (PCR) Not detected Parainfluenza 1 (PCR) Not detected Parainfluenza 2 (PCR) Not detected Parainfluenza 3 (PCR) Not detected Parainfluenza 4 (PCR) Not detected RSV (PCR) Not detected Entero/Rhino (PCR) Not detected Blood Type Antibody Screen 10/02/24 10/03/24 10/03/24 19:30 01:30 05:55 WBC 4.1 L RBC 3.90 L Hgb 12.0 Hct 36.3 MCV 93.2 MCH 30.8 MCHC 33.1 RDW 15.0 H Plt Count 134 L Neut % (Auto) 59.3 D Lymph % (Auto) 24.3 L Lewis % (Auto) 13.5 Eos % (Auto) 1.8 L Baso % (Auto) 1.1 Neut # (Auto) 2500 Lymph # (Auto) 1000 L Lewis # (Auto) 600 Eos # (Auto) 100 Baso # (Auto) 0 PT INR APTT Sodium 137 Potassium 3.7 Chloride 108 H Carbon Dioxide 24 BUN 18 H Creatinine 1.08 H Estimated GFR 53 L BUN/Creatinine Ratio 16.7 Glucose 84 Calcium 9.7 Magnesium Total Bilirubin AST ALT Alkaline Phosphatase Total Creatine Kinase Troponin I 0.046 H 0.040 H 0.035 H NT-Pro-B Natriuret Pep 256 Total Protein Albumin Globulin Albumin/Globulin Ratio Triglycerides 176 H Cholesterol 129 L LDL Cholesterol, Calc 29 HDL Cholesterol 65 H Lipase Urine Color Urine Appearance Urine pH Ur Specific Mooers Urine Protein Urine Glucose (UA) Urine Ketones Urine Occult Blood Urine Nitrate Urine Bilirubin Ur Bilirubin Confirm Urine Urobilinogen Ur Leukocyte Esterase Urine RBC Urine WBC Ur Squamous Epith Cells Ur Renal Epithelial Cell Urine Bacteria Ur Culture Indicated? Vol Urine Centrifuged Chlamy pneumoniae PCR Adenovirus (PCR) B. pertussis DNA (PCR) B.parapertussis DNA PCR Coronavirus OC43 (PCR) Coronavirus HKU1 (PCR) Coronavirus 229E (PCR) SARS-CoV-2 (PCR) Coronavirus NL63 (PCR) Human Metapneumovir PCR Influenza Type A (PCR) Influenza Type B (PCR) M. pneumoniae (PCR) Parainfluenza 1 (PCR) Parainfluenza 2 (PCR) Parainfluenza 3 (PCR) Parainfluenza 4 (PCR) RSV (PCR) Entero/Rhino (PCR) Blood Type Antibody Screen [facility] Medical History Abnormal Pap smear of cervix (~1978) Acquired hypothyroidism Anemia (~1966) B12 deficiency Cataracts, bilateral (~2019) Chicken pox Chronic kidney disease, stage 3b Colon polyps (~1993) Depression, recurrent (~1984) Essential hypertension Hemorrhoid History of blood clots History of cervical cancer (~1979) History of colon cancer (~1993) History of colon polyps HTN (hypertension) Hyperlipidemia Hypothyroidism (~1999) Kidney disease (~1995) Limp Measles Migraines Mixed hyperlipidemia Mumps Numerous moles Obstructive sleep apnea (adult) (pediatric) Polymyalgia rheumatica Polyneuropathy, unspecified Primary osteoarthritis involving multiple joints Rheumatoid arthritis Rubella Scoliosis 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 Grandmother Diabetes mellitus Social History household members: spouse Smoking Status: Current some day smoker Discharge Plan Discharge Plan Patient Disposition: Home Discharge orders & Medications Prescriptions: Continued metformin 500 mg tablet 1,000 mg PO BID Qty: 360 3RF (DME) Dexcom G7 Service Tech/Welder Misc See Rx Instructions .Route Qty: 1 0RF Rx Instructions: To check blood sugar 1-3 times a day and as needed (DME) Dexcom G7 Sensor Device See Rx Instructions .Route Qty: 1 0RF Rx Instructions: To check blood sugar 1-3 times a day and as needed gabapentin 100 mg capsule 500 mg PO DAILY Qty: 450 3RF Rx Instructions: 1 tablet at am, 1 tablet at pm, 3 tablet at bedtimes. sertraline 50 mg tablet 50 mg PO QPM Qty: 90 3RF Jardiance 25 mg tablet 25 mg PO DAILY Qty: 90 3RF (DME) Parking Permit... See Rx Instructions .Route .MEDSUPPLY Qty: 1 0RF Rx Instructions: As directed levothyroxine 112 mcg tablet 112 mcg PO DAILY Qty: 90 3RF acetaminophen [Tylenol Extra Strength] 500 mg tablet 500 mg PO TID leflunomide 20 mg tablet 20 mg PO DAILY aspirin 81 mg Tablet,Delayed Release (Dr/Ec) 81 mg PO DAILY ascorbic acid (vitamin C) [Vitamin C] 500 mg Tablet 500 mg PO DAILY cholecalciferol (vitamin D3) [Vitamin D3] 50 mcg (2,000 unit) Capsule 50 mcg PO DAILY Tresiba U-100 Insulin pen injector See Rx Instructions SUBCUT BEDTIME Rx Instructions: subcutaneously bedtime; 17-22 units depending on BG rosuvastatin 20 mg tablet 20 mg PO QPM Discontinued losartan 50 mg tablet 50 mg PO DAILY Qty: 90 3RF Follow up/Referrals: Karlos Avila MD [Primary Care Provider, Internal Medicine] Visit Report/Discharge Packet Stand Alone Forms: Patient Portal/API, Stroke Signs & Symptoms Discharge Data Primary Care Provider: Karlos Avila V
[2024-10-03 09:53] VITALS: BP 138/71; PULSE 71
[2024-10-03] MEDS: LOSARTAN 50 MG TABLET PO (09:53)
[2024-10-03] MEDS: ASPIRIN EC 81 MG TABLET PO (09:53)
[2024-10-03] MEDS: GABAPENTIN 100 MG CAPSULE 500 MG PO (09:55)
--- NOTE | 2024-10-03 17:07 | PC.NURSE ---
Late entry: discharge at approx 1222 after patient had lunch. Patient feeling well this morning, denies new issues or complaints. Denies pain. Patient met with doctor and agrees to plan for discharge. Discharge instructions reviewed and patient has no further questions or concerns at this time. IV was removed intact. Patient was escorted out via wheelchair to discharge to home with her . Patient has an appointment scheduled with her PCP [place] tomorrow.
== END 2024-10-03 12:22 | disposition home or self-care (01) ==
LOC: ED 20:14 → AC 21:31
PROVIDERS: Student in an Organized Health Care Education/Training Program; Admitting Provider Internal Medicine; Emergency Provider Student in an Organized Health Care Education/Training Program; Family Provider Internal Medicine; PCP Internal Medicine; Referring Provider Student in an Organized Health Care Education/Training Program; Visit Provider Internal Medicine
DX: R42 Dizziness and giddiness (principal); R09.02 Hypoxemia; R53.83 Other fatigue; R11.2 Nausea with vomiting, unspecified; R79.89 Other specified abnormal findings of blood chemistry; M06.9 Rheumatoid arthritis, unspecified; Z85.038 Personal history of other malignant neoplasm of large intestine; F17.210 Nicotine dependence, cigarettes, uncomplicated; Z93.3 Colostomy status; Z93.6 Other artificial openings of urinary tract status
CPT/HCPCS: 36415; 71045; 71275; 80048; 80053; 80061; 81001; 82550; 82962; 83690; 83735; 83880; 84484; 85025; 85610; 85730; 86850; 86900; 86901; 87086; 87633; 93005; 96361; 96374; 96375; 99285; G0378; J2405; J2470; Q9967

== ENCOUNTER → 2024-10-24 14:08 | Outpatient (CLI) | payer MEDICARE, OTHER, SELFPAY ==
[2024-10-02 20:34] VITALS: BMI 26.9
--- NOTE | 2024-10-24 14:09 | DI.MG.S_ITS ---
MM screening mammo BI: 10/24/2024. BI-RADS: 2 CLINICAL: 78-year old female for bilateral screening mammogram. Tyrer-Cuzick lifetime risk of 2.2%. No personal or first-degree family history of breast cancer. PRIOR EXAMS 10/21/2023, 10/08/2022, 10/01/2021, 06/09/2020. MAMMOGRAPHY TECHNIQUE: 2D and 3D (tomosynthesis) digital mammographic views obtained, with additional images as needed for full coverage. Current study was also evaluated with a Computer Aided Detection (CAD) system. DENSITY B. There are scattered areas of fibroglandular density. MAMMOGRAPHY FINDINGS Bilateral: Benign-appearing post-surgical changes and calcifications noted. There are no suspicious masses, calcifications, or other findings in the breast. IMPRESSION: * No evidence of malignancy with benign findings. RECOMMENDATIONS Bilateral * Annual screening mammography. OVERALL ASSESSMENT CATEGORY BI-RADS-2: Benign. The [employer] recommends annual screening mammography beginning at age 40 for women with average risk of breast cancer. ELECTRONICALLY SIGNED: Delmy Villalba M.D. on 10/25/2024 at 09:41:41 AM PT Interpreting Station ID: [id number]
== END ==
PROVIDERS: Family Provider Internal Medicine; PCP Internal Medicine; Referring Provider Internal Medicine; Visit Provider Internal Medicine
DX: Z12.31 Encounter for screening mammogram for malignant neoplasm of breast (principal)
CPT/HCPCS: 77063; 77067

== ENCOUNTER → 2024-11-21 11:10 | Outpatient (CLI) | payer MEDICARE, OTHER, SELFPAY ==
[2024-10-02 20:34] VITALS: BMI 26.9
[2024-11-21 12:25] LABS: Alanine Aminotransferase 21 IU/L (<35); Albumin 3.9 g/dL (3.5-5.0); Albumin Globulin Ratio 1.6 (1.0-2.8); Alkaline Phosphatase 50 U/L (38-126); Blood Urea Nitrogen 18 mg/dL (7-17); Estimated Glomerular Filt Rate 49 mL/min (>60); Globulin 2.4 g/dL (1.7-4.1); HEMOLYSIS < 15 (0-50); Total Protein 6.3 g/dL (6.3-8.2)
== END ==
PROVIDERS: Family Provider Internal Medicine; PCP Internal Medicine; Referring Provider Physician Assistant Medical; Visit Provider Physician Assistant Medical
DX: B35.1 Tinea unguium (principal)
CPT/HCPCS: 36415; 80076; 82565; 84520

== ENCOUNTER → 2025-01-10 13:44 | Outpatient (CLI) | payer MEDICARE, OTHER, SELFPAY ==
[2024-10-02 20:34] VITALS: BMI 26.9
[2025-01-10 14:22] LABS: Add Manual Diff / Slide Review NO; Hematocrit 35.6 % (36-46); Hemoglobin 11.7 g/dL (12.0-16.0); Lymphocytes Absolute Auto 800 /uL (1100-4500); Mean Corpuscular HGB Conc 32.9 % (30-36); Mean Corpuscular Hemoglobin 30.4 PG (26-34); Mean Corpuscular Volume 92.3 fL (80-100); Platelet Count 227 X10^3/uL (150-400)
[2025-01-10 15:12] LABS: Alanine Aminotransferase 18 IU/L (<35); Albumin 4.0 g/dL (3.5-5.0); Albumin Globulin Ratio 1.5 (1.0-2.8); Alkaline Phosphatase 69 U/L (38-126); Blood Urea Nitrogen 20 mg/dL (7-17); Calcium 9.8 mg/dL (8.4-10.2); Carbon Dioxide 25 mmol/L (22-32); Chloride 106 mmol/L (98-107); Estimated Glomerular Filt Rate 50 mL/min (>60); Globulin 2.7 g/dL (1.7-4.1); Glucose 144 mg/dL (70-99); HEMOLYSIS < 15 (0-50); Potassium 4.8 mmol/L (3.4-5.1); Sodium 138 mmol/L (137-145); Total Protein 6.7 g/dL (6.3-8.2)
== END ==
PROVIDERS: Family Provider Internal Medicine; PCP Internal Medicine; Referring Provider Internal Medicine Rheumatology; Visit Provider Internal Medicine Rheumatology
DX: M05.79 Rheumatoid arthritis with rheumatoid factor of multiple sites without organ or systems involvement (principal)
CPT/HCPCS: 36415; 80053; 85025; 85651; 86140

== ENCOUNTER → 2025-01-11 11:47 | Outpatient (CLI) | payer MEDICARE, OTHER, SELFPAY ==
[2024-10-02 20:34] VITALS: BMI 26.9
[2025-01-11 12:14] LABS: Hemoglobin A1C% w Est Avg Glu 6.4 % (4.0-6.0)
[2025-01-11 12:31] LABS: Blood Urea Nitrogen 18 mg/dL (7-17); Calcium 9.7 mg/dL (8.4-10.2); Carbon Dioxide 25 mmol/L (22-32); Chloride 106 mmol/L (98-107); Estimated Glomerular Filt Rate 53 mL/min (>60); Glucose 122 mg/dL (70-99); HEMOLYSIS < 15 (0-50); Potassium 4.2 mmol/L (3.4-5.1); Sodium 138 mmol/L (137-145)
[2025-01-11 13:00] LABS: TSH w/ Reflex to FT4 7.41 uIU/mL (0.47-4.68)
[2025-01-11 13:26] LABS: Free T4, Direct Thyroxine 1.33 ng/dL (0.78-2.19)
[2025-01-11 16:42] LABS: Microalbumi Creatinin Ratio Ur 313.0 ug/mg CR (<30)
== END ==
PROVIDERS: Family Provider Internal Medicine; PCP Internal Medicine; Referring Provider Internal Medicine; Visit Provider Internal Medicine
DX: E11.42 Type 2 diabetes mellitus with diabetic polyneuropathy (principal); N18.32 Chronic kidney disease, stage 3b; E03.9 Hypothyroidism, unspecified
CPT/HCPCS: 36415; 80048; 82043; 82570; 83036; 84439; 84443

== ENCOUNTER → 2025-01-25 14:45 | Outpatient (CLI) | payer MEDICARE, OTHER, SELFPAY ==
[2024-10-02 20:34] VITALS: BMI 26.9
[2025-01-25 15:40] LABS: Alanine Aminotransferase 21 IU/L (<35); Albumin 4.0 g/dL (3.5-5.0); Albumin Globulin Ratio 1.5 (1.0-2.8); Alkaline Phosphatase 62 U/L (38-126); Blood Urea Nitrogen 20 mg/dL (7-17); Estimated Glomerular Filt Rate 47 mL/min (>60); Globulin 2.7 g/dL (1.7-4.1); HEMOLYSIS < 15 (0-50); Total Protein 6.7 g/dL (6.3-8.2)
== END ==
PROVIDERS: Family Provider Internal Medicine; PCP Internal Medicine; Referring Provider Physician Assistant Medical; Visit Provider Physician Assistant Medical
DX: B35.1 Tinea unguium (principal)
CPT/HCPCS: 36415; 80076; 82565; 84520

== ENCOUNTER → 2025-03-07 14:55 | Outpatient (CLI) | payer MEDICARE, OTHER, SELFPAY ==
[2024-10-02 20:34] VITALS: BMI 26.9
[2025-03-07 18:13] LABS: Clostridium Difficile Tox PCR Negative for C. diff (Negative)
== END ==
PROVIDERS: Family Provider Internal Medicine; PCP Internal Medicine; Referring Provider Internal Medicine; Visit Provider Internal Medicine
DX: R19.7 Diarrhea, unspecified (principal)
CPT/HCPCS: 87493

== ENCOUNTER → 2025-04-05 10:37 | Outpatient (CLI) | payer MEDICARE, OTHER, SELFPAY ==
[2024-10-02 20:34] VITALS: BMI 26.9
[2025-04-05 13:14] LABS: Alanine Aminotransferase 19 IU/L (<35); Albumin 4.2 g/dL (3.5-5.0); Albumin Globulin Ratio 1.7 (1.0-2.8); Alkaline Phosphatase 58 U/L (38-126); Globulin 2.5 g/dL (1.7-4.1); HEMOLYSIS < 15 (0-50); Total Protein 6.7 g/dL (6.3-8.2)
== END ==
PROVIDERS: Family Provider Internal Medicine; PCP Internal Medicine; Referring Provider Internal Medicine; Visit Provider Physician Assistant Medical
DX: B35.1 Tinea unguium (principal)
CPT/HCPCS: 36415; 80076